=== PATIENT | female | born 1950 ===

== ENCOUNTER 2017-02-16 15:17 | Inpatient (IN) | payer BC, MEDICARE ==
[2017-02-16] MEDS ORDERED: Iohexol 240 (50 ml) PO STA (15:44)
[2017-02-16] MEDS ORDERED: Iohexol 240 (50 ml) ONE (15:58)
--- NOTE | 2017-02-16 16:15 | RAD ---
HISTORY: abd pain, h/o pancreas CA, right chemoport. COMPARISON: None available. TECHNIQUE: Chest, one view. FINDINGS: Right-sided MediPort terminates at the SVC. LUNGS: No focal consolidation. Please note that chest x-ray has limited sensitivity for the detection of pulmonary masses. PLEURA: No significant pleural effusion identified. No definite pneumothorax . CARDIOVASCULAR: Heart size appears within normal limits. Tortuous aorta. OSSEOUS STRUCTURES: Degenerative changes. VISUALIZED UPPER ABDOMEN: Unremarkable. OTHER FINDINGS: None. IMPRESSION: Right-sided MediPort.
[2017-02-16 16:18] LABS: BASO # 0.1 K/uL (0.0-0.2); BASO % 0.7 % (0.0-2.0); EOS # 0.1 K/uL (0.0-0.7); HEMATOCRIT 37.6 % (34.0-47.0); LYMPH # 1.1 K/uL (1.0-4.3); LYMPH % 14.3 % (20.0-40.0); MEAN CELL VOLUME 83.4 fL (81.0-99.0); MEAN CORPUSCULAR HEMOGLOBIN 27.1 pg (27.0-31.0); MEAN CORPUSCULAR HGB CONC 32.5 g/dL (33.0-37.0); MEAN PLATELET VOLUME 7.2 fL (7.2-11.7); MONO # 0.6 K/uL (0.0-0.8); MONO % 8.1 % (0.0-10.0); RED CELL DISTRIBUTION WIDTH 17.2 % (11.5-14.5); WHITE BLOOD COUNT 7.6 K/uL (4.8-10.8)
[2017-02-16 16:27] LABS: INR 1.1
[2017-02-16 16:47] LABS: CHLORIDE 97 mmol/L (98-107)
[2017-02-16 16:48] LABS: SODIUM 131 mmol/L (132-148)
[2017-02-16 16:51] LABS: ALKALINE PHOSPHATASE 108 U/L (38-126); ALT/SGPT 27 U/L (9-52); AST/SGOT 21 U/L (14-36); BILIRUBIN,TOTAL 0.9 mg/dL (0.2-1.3); BLOOD UREA NITROGEN 20 mg/dL (7-17); CARBON DIOXIDE 24 mmol/L (22-30); GFR AFRICAN-AMERICAN > 60; GLUCOSE,RANDOM 166 mg/dL (65-105); TOTAL PROTEIN 6.3 g/dL (6.3-8.3)
[2017-02-16 16:52] LABS: CALCIUM 9.1 mg/dl (8.6-10.4)
[2017-02-16 16:53] LABS: POTASSIUM 4.4 mmol/L (3.6-5.2)
[2017-02-16] MEDS ORDERED: Iohexol 350mg/ml 100 ML ONE (17:23)
[2017-02-16] MEDS ORDERED: Iodixanol 320 MG/ML 100 ML BOTTLE IV ONE (17:34)
[2017-02-16] MEDS ORDERED: Ciprofloxacin 400mg/200ml D5W 400 MG/200 ML BAG IVPB ONE (18:14)
[2017-02-16 18:15] LABS: RBC URINE 1 /hpf (0-3); URINE BILIRUBIN NEGATIVE (NEGATIVE); URINE BLOOD NEGATIVE (NEGATIVE); URINE COLOR Amber (YELLOW); URINE GLUCOSE (UA) NORMAL (Normal); URINE KETONE 1+ mg/dL (NEGATIVE); URINE LEUKOCYTE ESTERASE NEG Leu/uL (Negative); URINE PROTEIN 1+ mg/dL (NEGATIVE); WBC URINE 3 /hpf (0-5)
--- NOTE | 2017-02-16 19:00 | C.PDOC ---
Time Seen by Provider: 02/16/17 15:32 Chief Complaint (Nursing): Abdominal Pain History Per: Patient, Family Onset/Duration Of Symptoms: Days Current Symptoms Are (Timing): Still Present Severity: Moderate Location Of Pain/Discomfort: Epigastric Quality Of Discomfort: "Pain" Associated Symptoms: Nausea, Vomiting, Constipation Exacerbating Factors: Food Alleviating Factors: None Last Bowel Movement: Days Ago (4) Additional History Per: Prior Records Past Medical History Reviewed: Historical Data, Nursing Documentation, Vital Signs Vital Signs: Last Vital Signs Temp 97.6 F 02/16/17 15:24 Pulse 99 H 02/16/17 15:24 Resp 18 02/16/17 15:24 BP 120/83 02/16/17 15:24 Pulse Ox 98 02/16/17 15:24 - Medical History PMH: Malignancy (Pancreatic) Other Surgeries: Chemoport Family History: States: Unknown Family Hx - Social History Hx Alcohol Use: No Hx Substance Use: No Review Of Systems Except As Marked, All Systems Reviewed And Found Negative. Constitutional: Negative for: Fever Cardiovascular: Negative for: Chest Pain Respiratory: Negative for: Shortness of Breath Gastrointestinal: Positive for: Nausea, Vomiting, Abdominal Pain, Constipation. Negative for: Melena, Hematochezia, Hematemesis Genitourinary: Negative for: Dysuria Musculoskeletal: Negative for: Neck Pain Skin: Negative for: Rash Neurological: Negative for: Weakness, Numbness Physical Exam - Physical Exam Appears: Non-toxic, Chronically Ill Skin: Normal Color, Warm, Dry Head: Atraumatic, Normacephalic Eye(s): bilateral: PERRL, EOMI Neck: Normal ROM, Supple Cardiovascular: Rhythm Regular Respiratory: Normal Breath Sounds, No Accessory Muscle Use Gastrointestinal/Abdominal: Tenderness (epigastric), Distention Back: No CVA Tenderness Extremity: Normal ROM Neurological/Psych: Oriented x3, Normal Motor, Normal Sensation ED Course And Treatment - Laboratory Results Result Diagrams: 02/16/17 16:12 02/16/17 16:12 Lab Interpretation: No Acute Changes O2 Sat by Pulse Oximetry: 98 Pulse Ox Interpretation: Normal Disposition - Disposition Disposition Time: 19:00 Condition: GUARDED Forms: [employer] ([place] Citizen) - Clinical Impression Clinical Impression: Abdominal pain, Nausea and vomiting Physician Patient Turnover Patient Signed Over To: Marianna Leslie Handoff Comments: to f/up CT scan of abdomen/pelvis and reassess/dispo pt.
--- NOTE | 2017-02-16 19:23 | CT ---
EXAM: CT Abdomen and Pelvis With Intravenous Contrast EXAM DATE/TIME: Exam ordered 02/16/2017 5:30 PM CLINICAL HISTORY: 66 years old, female; Pain; Abdominal pain; Generalized; Additional info: Abd pain/distention, vomiting, h/o pancreatic ca TECHNIQUE: Axial computed tomography images of the abdomen and pelvis with intravenous contrast. All CT scans at this facility use one or more dose reduction techniques, viz.: automated exposure control; ma/kV adjustment per patient size (including targeted exams where dose is matched to indication; i.e. head); or iterative reconstruction technique. Coronal and sagittal reformatted images were created and reviewed. CONTRAST: 100 mL of omni 350 administered intravenously. COMPARISON: No relevant prior studies available. FINDINGS: Lower thorax: The there is a 4 mm nodule in the right lower lobe (series 5 image 1). A bulla is present in the right middle lobe. There is a calcified granuloma noted in the posterior basal segment of the right lower lobe. A thin pleural based reticular density representing scar is seen in the posterior basal segment of the left lower lobe. A bulla is noted in the left lower lobe measuring less than a centimeter. ABDOMEN: Liver: A 5 mm low density lesion is noted in the lateral segment of the left lobe of the liver with a density measurement of 0 representing a simple cyst. Gallbladder and bile ducts: Unremarkable. No calcified stones. No ductal dilation. Pancreas: Unremarkable. No mass. No ductal dilation. Spleen: There is occlusion of the splenic vein. Adrenals: Unremarkable. No mass. Kidneys and ureters: There is a focal area of cortical thinning noted in the midportion of the right kidney posteriorly. There is mild fullness of the renal collecting systems bilaterally. Stomach and bowel: Unremarkable. No obstruction. No mucosal thickening. Appendix: No findings to suggest acute appendicitis. PELVIS: Bladder: The uterus is not seen as a separate structure. The bladder appears decompressed. Reproductive: See above. ABDOMEN and PELVIS: Intraperitoneal space: There is a large amount of intra-abdominal ascites. There is thickening noted of the peritoneum. No free air. Bones/joints: No acute fracture. No dislocation. Soft tissues: Varices are noted within the gastrohepatic ligament and adjacent to the greater curvature the stomach small varices are suggested in the subcutaneous fat of the intra-abdominal wall on the right below the umbilicus. Vasculature: See above. Lymph nodes: Unremarkable. No enlarged lymph nodes. Other findings: . IMPRESSION: 1. Large amount of intra-abdominal ascites with peritoneal thickening. This could represent peritoneal carcinomatosis. 2. Calcified and noncalcified right-sided pulmonary nodules. An optional follow-up chest CT at 12 months could be performed due to the high risk of malignancy. If unchanged, no further follow-up is necessary. 3. 5 mm cyst in the liver. 4. Splenic vein occlusion with varices noted the surrounding the stomach and in the splenic hilum. 5. Mild fullness of the renal collecting systems bilaterally likely secondary to tense abdominal ascites.
[2017-02-16] MEDS ORDERED: Morphine 4 MG/ML VIAL ONE (19:44)
[2017-02-16] MEDS ORDERED: oxyCODONE 5 mg Immediate Release Tab PO PRN (21:43)
[2017-02-16] MEDS: (Novolin R) Insulin Human Regular 100 units/ml vial SC SCH (22:17)
[2017-02-17 04:29] VITALS: RESP 20
[2017-02-17 07:14] LABS: HEMATOCRIT 35.9 % (34.0-47.0); MEAN CELL VOLUME 83.9 fL (81.0-99.0); MEAN CORPUSCULAR HEMOGLOBIN 26.8 pg (27.0-31.0); MEAN PLATELET VOLUME 7.5 fL (7.2-11.7); RED CELL DISTRIBUTION WIDTH 17.1 % (11.5-14.5); WHITE BLOOD COUNT 7.2 K/uL (4.8-10.8)
[2017-02-17 07:31] LABS: CHLORIDE 98 mmol/L (98-107); INR 1.1
[2017-02-17 07:32] LABS: SODIUM 133 mmol/L (132-148)
[2017-02-17 07:33] LABS: POTASSIUM 4.7 mmol/L (3.6-5.2)
[2017-02-17 07:35] LABS: ALKALINE PHOSPHATASE 107 U/L (38-126); ALT/SGPT 27 U/L (9-52); AST/SGOT 20 U/L (14-36); BILIRUBIN,TOTAL 0.8 mg/dL (0.2-1.3); BLOOD UREA NITROGEN 19 mg/dL (7-17); CARBON DIOXIDE 28 mmol/L (22-30); GFR AFRICAN-AMERICAN > 60; GLUCOSE,RANDOM 135 mg/dL (65-105); TOTAL PROTEIN 5.8 g/dL (6.3-8.3)
[2017-02-17] MEDS: (Novolin R) Insulin Human Regular 100 units/ml vial SC SCH ×4 (08:41→22:09)
[2017-02-17] MEDS ORDERED: Enoxaparin 40 mg Syringe SC SCH (10:00)
--- NOTE | 2017-02-17 11:41 | PCM.SURG1 ---
Surgeon's Initial Post Op Note - Surgeon's Notes Surgeon: Ritesh Meléndez MD Trade Show Specialist: NONE Type of Anesthesia: Local Pre-Operative Diagnosis: Ascites Operative Findings: US showed moderate ascites Post-Operative Diagnosis: Ascites Operation Performed: US guided paracentesis Specimen/Specimens Removed: 3500 cc of yellow fluid Estimated Blood Loss: EBL {In ML}: 0 Blood Products Given: N/A Drains Used: No Drains Post-Op Condition: Fair Date of Surgery/Procedure: 02/17/17 Time of Surgery/Procedure: 11:35
--- NOTE | 2017-02-17 11:47 | US ---
Date of Procedure: 02/17/2017 PROCEDURE: Ultrasound-guided paracentesis, CPT 19503 Medications: 7 cc 1% Lidocaine HISTORY: Ascites, abdominal pain, cirrhosis TECHNIQUE: Following informed consent , the patient was placed supine on the stretcher and the site was marked. A limited abdominal ultrasound was performed that showed a large amount of intra-abdominal fluid. Procedural time out was called and the Pt's abdomen was marked and prepped and draped in the usual sterile fashion. Ultrasound-guided large volume paracentesis performed. A total of 3.5 liters of straw colored fluid was removed without complication.. IMPRESSION: Ultrasound-guided large volume paracentesis.
--- NOTE | 2017-02-17 20:42 | CP.PCM.CON ---
History of Present Illness - History of Present Illness History of Present Illness: 66 year old female with a history of advanced pancreatic cancer diagnosed about 1 year ago, off chemotherapy for about 3 months, admitted with abdominal pain, constipation, and tense abdominal ascites s/p paracentesis. The patient reports she had been receiving chemotherapy in [place]. Her chemotherapy was discontinued about 3 months ago for stated progressive disease. She is currently feeling better post paracentesis. She admits to poor appetite and weightloss. Past medical history: Pancreatic cancer Past surgical history: None Family history: Denies hematologic and oncologic problems Social history: Denies tobacco, alcohol and illicit drug use. Allergies: NKA Review of systems: All remaining review of systems including HEENT, cardiovascular, respiratory, gastrointestinal, genitourinary, musculoskeletal, dermatologic, neurologic, and psychiatric are negative unless mentioned in the HPI. Past Patient History - Past Medical History & Family History Past Medical History?: Yes - Past Social History Smoking Status: Never Smoked - ENDOCRINE/METABOLIC Hx Endocrine Disorders: Yes Hx Diabetes Mellitus Type 2: Yes - HEMATOLOGICAL/ONCOLOGICAL Hx Blood Disorders: Yes Hx Cancer: Yes (PANCREATIC) - MUSCULOSKELETAL/RHEUMATOLOGICAL Hx Falls: Yes - GASTROINTESTINAL Hx Gastrointestinal Disorders: Yes Other/Comment: PANCREATIC CANCER - PSYCHIATRIC Hx Substance Use: No - SURGICAL HISTORY Hx Surgeries: No - ANESTHESIA Hx Anesthesia: No Hx Anesthesia Reactions: No Hx Malignant Hyperthermia: No Meds Allergies/Adverse Reactions: Allergies Allergy/AdvReac Type Severity Reaction Status Date / Time No Known Allergies Allergy Verified 02/16/17 15:27 - Medications Medications: Current Medications Enoxaparin Sodium (Lovenox) 40 mg SC DAILY [facility] Famotidine (Pepcid) 20 mg IVP Q12 [facility] Last Admin: 02/17/17 09:55 Dose: 20 mg Insulin Human Regular (Novolin R) 0 unit SC ACHS [facility] PRN Reason: Protocol Last Admin: 02/17/17 17:09 Dose: 1 unit Morphine Sulfate (Morphine) 4 mg IVP Q4 PRN PRN Reason: Pain Ondansetron HCl (Zofran Inj) 4 mg IVP Q4 PRN PRN Reason: Nausea/Vomiting Last Admin: 02/17/17 18:19 Dose: 4 mg Pneumococcal Polyvalent Vaccine (Pneumovax 23 Vaccine) 0.5 ml IM .ONCE ONE Stop: 02/19/17 10:01 Rosuvastatin Calcium (Crestor) 5 mg PO HS [facility] Last Admin: 02/16/17 22:17 Dose: 5 mg Physical Exam - Head Exam Head Exam: ATRAUMATIC - Eye Exam Eye Exam: Normal appearance - ENT Exam ENT Exam: Mucous Membranes Dry - Respiratory Exam Respiratory Exam: NORMAL BREATHING PATTERN - Cardiovascular Exam Cardiovascular Exam: +S1, +S2 - GI/Abdominal Exam GI & Abdominal Exam: Normal Bowel Sounds - Extremities Exam Extremities exam: Positive for: normal inspection - Neurological Exam Neurological exam: Oriented x3 - Psychiatric Exam Psychiatric exam: Normal Affect, Normal Mood - Skin Skin Exam: Warm Results - Vital Signs Recent Vital Signs: Last Vital Signs Temp 98.2 F 02/17/17 15:00 Pulse 97 H 02/17/17 15:00 Resp 20 02/17/17 15:00 BP 105/67 02/17/17 15:00 Pulse Ox 97 02/17/17 15:00 - Labs Result Diagrams: 02/17/17 07:08 02/17/17 07:08 Labs: Laboratory Results - last 24 hr 02/16/17 02/17/17 02/17/17 22:17 07:04 07:08 WBC 7.2 RBC 4.28 Hgb 11.5 Hct 35.9 MCV 83.9 MCH 26.8 L MCHC 32.0 L RDW 17.1 H Plt Count 242 MPV 7.5 PT INR APTT Sodium Potassium Chloride Carbon Dioxide Anion Gap BUN Creatinine Est GFR ( Amer) Est GFR (Non-Af Amer) POC Glucose (mg/dL) 150 H 154 H Random Glucose Calcium Total Bilirubin AST ALT Alkaline Phosphatase Total Protein Albumin Globulin Albumin/Globulin Ratio 02/17/17 02/17/17 02/17/17 07:08 07:08 16:14 WBC RBC Hgb Hct MCV MCH MCHC RDW Plt Count MPV PT 11.9 INR 1.1 APTT 31 Sodium 133 Potassium 4.7 Chloride 98 Carbon Dioxide 28 Anion Gap 12 BUN 19 H Creatinine 0.9 Est GFR ( Amer) > 60 Est GFR (Non-Af Amer) > 60 POC Glucose (mg/dL) 162 H Random Glucose 135 H Calcium 9.0 Total Bilirubin 0.8 AST 20 ALT 27 Alkaline Phosphatase 107 Total Protein 5.8 L Albumin 2.9 L Globulin 2.9 Albumin/Globulin Ratio 1.0 Assessment & Plan (1) Pancreatic cancer Assessment and Plan: evidence of peritoneal carcinomatosis by CT s/p paracentesis; f/u cytology no pancreatic mass noted by CT palliative care evaluation outpatient f/u with primary oncologist Thank you for this interesting consult. Status: Acute
--- NOTE | 2017-02-18 07:55 | HP ---
CHIEF COMPLAINT: Abdominal pain, nausea and vomiting. HISTORY OF PRESENT ILLNESS: This is an elderly female who was recently diagnosed in [facility] with a pancreatic cancer a year ago and last chemo was 3 months ago. The patient is not on chemotherapy as she was told by her heme-onc in [facility] that her cancer is too advanced and the patient came because of abdominal pain, nausea, vomiting, generalized weakness, tiredness, anorexia, malaise and fatigue; along with that she had some abdominal distension. The patient is weak and tired. She feels shaky. She denies any cough or sore throat. There is no chest pain. She denies any palpitation. There is no history of trauma, fall or loss of consciousness. The patient denies any seizure-like activity. She denies any tingling, numbness or paresthesia. The patient denies any rectal bleed. The patient denies any sneezing, itchy eyes or itchy nose. She denies any polyuria, polydipsia or polyphagia. ALLERGIES: UNKNOWN. CURRENT MEDICATIONS: At home, she is taking Zocor, Percocet, Zofran, omeprazole, lisinopril and metformin. SOCIAL HISTORY: Nonsmoker, non-drug user. PHYSICAL EXAMINATION GENERAL: An elderly female in [id number] distress. VITAL SIGNS: Blood pressure 130/83, pulse 80, respiratory rate 20 and temperature 98.1. SKIN: Dry, senile turgor. No bruises. No purpura. No petechiae. No ecchymosis. HEENT: Atraumatic and normocephalic. Negative pallor. Negative jaundice. Extraocular movements are intact. NECK: Supple. Flat neck veins. No JVD. CHEST WALL: Bilateral symmetrical expansion. LUNGS: Bilaterally clear. No rales. No rhonchi. CARDIOVASCULAR: S1 and S2 regular. No heave. No thrill. ABDOMEN: Soft. There is diffuse tenderness, the patient thus had paracentesis. RECTAL: No masses. No bleeding. EXTREMITIES: No clubbing, cyanosis or edema. CENTRAL NERVOUS SYSTEM: Awake, alert and oriented x3. Cranial nerves II through XII are normal. Power 5/5 x4. ASSESSMENT: 1. Advanced metastatic pancreatic cancer. 2. Dehydration. 3. Ascites, malignant, we will discuss. PLAN: Admit and paracentesis. Pain medications. Monitor the patient. Supportive care. Heme-onc eval. Andriy Jones MD
[2017-02-18] MEDS: (Novolin R) Insulin Human Regular 100 units/ml vial SC SCH ×3 (08:27→17:45)
[2017-02-18] MEDS: Morphine 4 MG/ML VIAL IVP PRN ×2 (08:35→17:12)
[2017-02-18] MEDS ORDERED: Pneumococcal 23-Valent Vaccine IM ONE (15:30)
[2017-02-18 16:02] VITALS: PULSE 84; TEMP 98.1; O2SAT 98
[2017-02-18 17:05] VITALS: BP 113/72
--- NOTE | 2017-02-18 17:48 | PN ---
DATE: LOCATION: Room 356, bed B. SUBJECTIVE: This 66 years old female who was seen for GI consultation as recorded by the admitting MD on 02/17/2017, reexamined again today. Last ultrasound-guided abdominal paracentesis by Dr. Ritesh Meléndez yesterday. Patient still has intermittent periods of complaint of abdominal pain, but less abdominal distention. The entire chart is reviewed including but not limited to most recent labs and radiologic results, current and the previous medication list, current and previous medical events and today's blood glucose level 176; however, yesterday lab result showed normal CBC, but elevated BUN. Dilantin was low. Albumin 2.9. Low total protein 5.8. Initial CAT scan of the abdomen and pelvis were reviewed and discussed with admitting medical team. Patient seen also by Dr. Ozzy Quigley. Due to the patient's known history of advanced pancreatic cancer diagnosed about one year ago, had been off chemotherapy for about 3 months. Patient still has some constipation, but less abdominal distention. PHYSICAL EXAMINATION GENERAL: A 66-year-old female. Appear to be awake, alert. VITAL SIGNS: Afebrile with pulse of 82, respiratory rate 20-22, blood pressure 104/60. HEENT: Show pale, dry oral mucous membrane. Nonicteric sclerae. LUNGS: Few scattered crepitations, decreased air entry at bases. HEART: Positive S1 and S2. ABDOMEN: Soft. Bowel sounds are hypoactive. No mass or organomegaly. No rebound tenderness or guarding. Ascites is still there with less abdominal girth distention. EXTREMITIES: Lower extremity with mild edematous changes. No clubbing or cyanosis. NEUROLOGIC: No reported new neurological deficits, sensory or motor. IMPRESSION: 1. Advanced pancreatic cancer with possible metastasis to the lung. 2. Status post chemotherapy. 3. Re-exacerbation of peptic ulcer disease. 4. Malignant ascites secondary to peritoneal involvement with pancreatic cells most likely. PLAN: 1. I agree with your plan. 2. More abdominal paracentesis guided by ultrasound. 3. Patient has no evidence of obstructive jaundice and her pancreatic cancer diagnosis was well made before. At this point, no need for aggressive GI workup and peripheral hyperalimentation will be provided due to the patient's poor oral intake once discussed the case at length with the admitting medical team. Emerita Freeman MD [facility] # [id number]
--- NOTE | 2017-02-18 18:30 | CP.PCM.PN ---
Subjective - Date & Time of Evaluation Date of Evaluation: 02/18/17 Time of Evaluation: 11:00 - Subjective Subjective: awake, alert, no abdominal pain, no distress. Objective - Vital Signs/Intake and Output Vital Signs (last 24 hours): Temp Pulse Resp BP Pulse Ox 98.1 F 84 20 113/72 98 02/18/17 16:00 02/18/17 16:00 02/18/17 16:00 02/18/17 16:49 02/18/17 16:00 Intake and Output: 02/18/17 02/18/17 06:59 18:59 Intake Total 700 Balance 700 - Medications Medications: Current Medications Enoxaparin Sodium (Lovenox) 40 mg SC DAILY [facility] Famotidine (Pepcid) 20 mg IVP Q12 [facility] Last Admin: 02/18/17 10:46 Dose: Not Given Insulin Human Regular (Novolin R) 0 unit SC ACHS [facility] PRN Reason: Protocol Last Admin: 02/18/17 17:45 Dose: Not Given Morphine Sulfate (Morphine) 4 mg IVP Q4 PRN PRN Reason: Pain Last Admin: 02/18/17 17:12 Dose: 4 mg Ondansetron HCl (Zofran Inj) 4 mg IVP Q4 PRN PRN Reason: Nausea/Vomiting Last Admin: 02/18/17 08:33 Dose: 4 mg Rosuvastatin Calcium (Crestor) 5 mg PO HS [facility] Last Admin: 02/17/17 22:12 Dose: 5 mg - Labs Labs: 02/17/17 07:08 02/17/17 07:08 PT 11.9 SECONDS (9.7-12.2) 02/17/17 07:08 INR 1.1 02/17/17 07:08 APTT 31 SECONDS (21-34) 02/17/17 07:08 Assessment and Plan - Assessment and Plan (Free Text) Assessment: 66 year old female diagnosed with pancreatic cancer, seen and examined. Had paracentesis done yesterday, drained 3.5 liter fluid. Denies abdominal pain or distress today. Alert and orientedx3, ambulating well. D/W DR Jones, plan to discharge home today. Advised to follow in 1 week with PMD.
--- NOTE | 2017-02-19 21:21 | CON ---
DATE: 02/17/2017 LOCATION: 356, bed B. HISTORY OF PRESENT ILLNESS: I was called for GI consultation by the admitting MD. The patient was seen and fully examined on since 02/17/2017, as requested by the admitting medical staff. The entire chart was reviewed including, but not limited to the most recent lab done and radiologic results, current and previous medication list, current and previous medical events, allergies to medication list, as well as all the available current and previous medical record. This is a 66-year-old female with unknown history of pancreatic CA, who was admitted to the hospital through the emergency room with main complaint of severe abdominal pain, increased abdominal girth, recurrent episode of nausea and vomiting. The patient also complained of generalized weakness and malaise with more reported active bleeding. The entire chart is reviewed including, but not limited to the most recent lab and radiologic results. Current and the previous medication list, current and previous medical events. At the time of the admission, the patient's CBC was reported to be within normal limit including platelet count are normal, but low sodium of 131 with increased BUN to 20, but normal creatine. The latest blood glucose level reported to be 154 with low albumin 2.9. Total protein of 5.6. Abdominal and pelvic CAT scan at the time of admission was performed, reports and films are seen, and did show large amount of ascites with peritoneal thickening, which could represent peritoneal carcinomatosis with small liver cyst and possible splenic vein occlusion with varices. Initial chest x-ray at that time of the admission was unremarkable basically. PAST MEDICAL HISTORY: Including . 1. Pancreatic CA. 2. Status post chemotherapy. 3. Peptic ulcer disease. FAMILY HISTORY: Unknown. SOCIAL HISTORY: No known history of cigarette smoking or alcohol intake recently. CURRENT MEDICATIONS: Medication list was reviewed. ALLERGIES TO MEDICATION: NONE. PHYSICAL EXAMINATION GENERAL: A 66 years old female complaining of abdominal pain appeared to be awake, alert, and oriented. VITAL SIGNS: Afebrile with pulse of 92, respiratory rate 20 to 22, blood pressure of 120/68. HEENT: Shows mildly pale, dry oral mucous membrane. Nonicteric sclerae. HEART: Positive S1 and S2 with increased rate. LUNGS: Few scattered crepitations, with decreased air entry at bases. ABDOMEN: Large, abdominal ascites with increased abdominal girth and mild generalized tenderness. No mass or organomegaly. No rebound, tenderness or guarding. LYMPH NODES: There is no lymphadenitis or lymphadenopathy. RECTAL: The patient refused. EXTREMITIES: Mild lower extremity edematous changes. No clubbing or cyanosis. NEUROLOGIC: No reported new neurological deficits, sensory or motor. Peripheral pulses are positive bilaterally and present. IMPRESSION: 1. Advanced pancreatic carcinoma with possible metastatic lesion to the lung as well as the peritoneal cavity. 2. Status post chemotherapy. 3. Re-exacerbation peptic ulcer disease with recurrent nausea and vomiting. 4. Malignant ascites most likely secondary to above and also due to peritoneal involvement, most likely. 5. Abnormal CAT scan of the abdomen and pelvis with small hepatic cyst as well as splenic vein thrombosis with varices. SUGGESTIONS: 1. Agree with your plan. 2. Aldactone p.o. 3. Lasix IV. 4. Proton pump inhibitors. 5. Reglan IV. 6. Proton pump inhibitors IV. 7. The patient will need CAT scan guided or ultrasound-guided abdominal paracentesis as a palliative treatment. 8. No need for aggressive GI workup due to the advanced pancreatic CA and Oncology/Hematology consultation to follow. Thank you for allowing me to participate in your patient's case management. Emerita Freeman MD
--- NOTE | 2017-02-19 22:37 | CP.PCM.DIS ---
Provider - Provider Date of Admission: 02/16/17 19:43 Attending physician: Andriy Jones MD Diagnosis - Discharge Diagnosis (1) Dehydration Status: Acute Priority: High (2) Pancreatic cancer Status: Acute Priority: High Hospital Course - Lab Results Lab Results: Most Recent Lab Values WBC 7.2 K/uL (4.8-10.8) 02/17/17 07:08 RBC 4.28 Mil/uL (3.80-5.20) 02/17/17 07:08 Hgb 11.5 g/dL (11.0-16.0) 02/17/17 07:08 Hct 35.9 % (34.0-47.0) 02/17/17 07:08 MCV 83.9 fL (81.0-99.0) 02/17/17 07:08 MCH 26.8 pg (27.0-31.0) L 02/17/17 07:08 MCHC 32.0 g/dL (33.0-37.0) L 02/17/17 07:08 RDW 17.1 % (11.5-14.5) H 02/17/17 07:08 Plt Count 242 K/uL (130-400) 02/17/17 07:08 MPV 7.5 fL (7.2-11.7) 02/17/17 07:08 Neut % (Auto) 75.9 % (50.0-75.0) H 02/16/17 16:12 Lymph % (Auto) 14.3 % (20.0-40.0) L 02/16/17 16:12 [place] % (Auto) 8.1 % (0.0-10.0) 02/16/17 16:12 Eos % (Auto) 1.0 % (0.0-4.0) 02/16/17 16:12 Baso % (Auto) 0.7 % (0.0-2.0) 02/16/17 16:12 Neut # 5.8 K/uL (1.8-7.0) 02/16/17 16:12 Lymph # 1.1 K/uL (1.0-4.3) 02/16/17 16:12 [place] # 0.6 K/uL (0.0-0.8) 02/16/17 16:12 Eos # 0.1 K/uL (0.0-0.7) 02/16/17 16:12 Baso # 0.1 K/uL (0.0-0.2) 02/16/17 16:12 PT 11.9 SECONDS (9.7-12.2) 02/17/17 07:08 INR 1.1 02/17/17 07:08 APTT 31 SECONDS (21-34) 02/17/17 07:08 Sodium 133 mmol/L (132-148) 02/17/17 07:08 Potassium 4.7 mmol/L (3.6-5.2) 02/17/17 07:08 Chloride 98 mmol/L (98-107) 02/17/17 07:08 Carbon Dioxide 28 mmol/L (22-30) 02/17/17 07:08 Anion Gap 12 (10-20) 02/17/17 07:08 BUN 19 mg/dL (7-17) H 02/17/17 07:08 Creatinine 0.9 MG/DL (0.7-1.2) 02/17/17 07:08 Est GFR ( Amer) > 60 02/17/17 07:08 Est GFR (Non-Af Amer) > 60 02/17/17 07:08 POC Glucose (mg/dL) 128 mg/dL (65-110) H 02/18/17 16:31 Random Glucose 135 mg/dL (65-105) H 02/17/17 07:08 Calcium 9.0 mg/dl (8.6-10.4) 02/17/17 07:08 Total Bilirubin 0.8 mg/dL (0.2-1.3) 02/17/17 07:08 AST 20 U/L (14-36) 02/17/17 07:08 ALT 27 U/L (9-52) 02/17/17 07:08 Alkaline Phosphatase 107 U/L (38-126) 02/17/17 07:08 Total Protein 5.8 g/dL (6.3-8.3) L 02/17/17 07:08 Albumin 2.9 g/dL (3.5-5.0) L 02/17/17 07:08 Globulin 2.9 gm/dL (2.2-3.9) 02/17/17 07:08 Albumin/Globulin Ratio 1.0 (1.0-2.1) 02/17/17 07:08 Lipase 11 U/L (23-300) L 02/16/17 16:12 Urine Color Marie (YELLOW) 02/16/17 18:01 Urine Clarity Hazy (Clear) 02/16/17 18:01 Urine pH 5.0 (5.0-8.0) 02/16/17 18:01 Ur Specific [place] 1.025 (1.003-1.030) 02/16/17 18:01 Urine Protein 1+ mg/dL (NEGATIVE) H 02/16/17 18:01 Urine Glucose (UA) Normal mg/dL (Normal) 02/16/17 18:01 Urine Ketones 1+ mg/dL (NEGATIVE) H 02/16/17 18:01 Urine Blood Negative (NEGATIVE) 02/16/17 18:01 Urine Nitrate Negative (NEGATIVE) 02/16/17 18:01 Urine Bilirubin Negative (NEGATIVE) 02/16/17 18:01 Urine Urobilinogen 2.0 mg/dL (0.2-1.0) H 02/16/17 18:01 Ur Leukocyte Esterase Neg Ava/uL (Negative) 02/16/17 18:01 Urine WBC (Auto) 3 /hpf (0-5) 02/16/17 18:01 Urine RBC (Auto) 1 /hpf (0-3) 02/16/17 18:01 Ur Squamous Epith Cells 3 /hpf (0-5) 02/16/17 18:01 - Hospital Course Hospital Course: 66 Y/O ADMITTED WITH PAIN IN ABDOMEN, AND NAUSEA AND SHE HAD ASCTIES WEAKNESS, NO FEVER, NO CHEST PAIN Discharge Exam - Head Exam Head Exam: ATRAUMATIC, NORMAL INSPECTION, NORMOCEPHALIC - Eye Exam Eye Exam: EOMI, Normal appearance, PERRL Pupil Exam: NORMAL ACCOMODATION - ENT Exam ENT Exam: Mucous Membranes Moist, Normal Exam, Normal Oropharynx, TM's Normal Bilaterally - Neck Exam Neck exam: Normal Inspection - Respiratory Exam Respiratory Exam: NORMAL BREATHING PATTERN - Cardiovascular Exam Cardiovascular Exam: REGULAR RHYTHM, +S1, +S2 - GI/Abdominal Exam GI & Abdominal Exam: Normal Bowel Sounds, Unremarkable - Rectal Exam Rectal Exam: NORMAL INSPECTION - Neurological Exam Neurological exam: Abnormal Gait, Alert, CN II-XII Intact, Oriented x3, Reflexes Normal - Psychiatric Exam Psychiatric exam: Normal Mood - Skin Skin Exam: Intact Discharge Plan - Follow Up Plan Condition: GUARDED Disposition: HOME/ ROUTINE Instructions: Pancreatic Cancer (DC), Acute Abdominal Pain (DC), Abdominal Paracentesis (DC), Ascites (DC) Referrals: Ozzy Quigley MD [Staff Provider] - Andriy Jones MD [Staff Provider] -
== END 2017-02-18 18:59 | disposition home or self-care (01) | DRG 375 ==
LOC: C.ER 15:17 → C.9E 19:43 → C.3T 02-17 00:09
PROVIDERS: ADMIT Internal Medicine; ATTEND Internal Medicine
PROC: 0W9G3ZZ Drainage of Peritoneal Cavity, Percutaneous Approach (ICD-10-PCS; principal; 2017-02-16)
DX: C78.6 Secondary malignant neoplasm of retroperitoneum and peritoneum (principal); R18.0 Malignant ascites; C25.9 Malignant neoplasm of pancreas, unspecified; K74.60 Unspecified cirrhosis of liver; K27.9 Peptic ulcer, site unspecified, unspecified as acute or chronic, without hemorrhage or perforation; E11.9 Type 2 diabetes mellitus without complications; E86.0 Dehydration; K59.00 Constipation, unspecified; Z92.21 Personal history of antineoplastic chemotherapy

== ENCOUNTER 2017-02-24 10:15 | Inpatient (IN) | payer BC, MEDICARE ==
[2017-02-24] MEDS ORDERED: Sodium Chloride 0.9% 500 ML IV ONE ×2 (11:17→11:24)
[2017-02-24] MEDS ORDERED: Morphine 4 MG/ML VIAL ONE (11:23)
[2017-02-24 11:40] LABS: BASO % 0.4 % (0.0-2.0); EOS # 0.1 K/uL (0.0-0.7); EOS % 0.7 % (0.0-4.0); HEMATOCRIT 37.4 % (34.0-47.0); LYMPH # 0.8 K/uL (1.0-4.3); LYMPH % 8.1 % (20.0-40.0); MEAN CELL VOLUME 83.6 fL (81.0-99.0); MEAN CORPUSCULAR HEMOGLOBIN 27.1 pg (27.0-31.0); MEAN CORPUSCULAR HGB CONC 32.5 g/dL (33.0-37.0); MEAN PLATELET VOLUME 8.2 fL (7.2-11.7); MONO # 0.5 K/uL (0.0-0.8); MONO % 5.3 % (0.0-10.0); NRBC % 0.1 % (0.0-2.0); PLATELET COUNT 262 K/uL (130-400); RED CELL DISTRIBUTION WIDTH 17.3 % (11.5-14.5); WHITE BLOOD COUNT 9.8 K/uL (4.8-10.8)
[2017-02-24 11:52] LABS: CHLORIDE 92 mmol/L (98-107); POTASSIUM 4.6 mmol/L (3.6-5.2); SODIUM 127 mmol/L (132-148)
[2017-02-24 11:54] LABS: BILIRUBIN,TOTAL 0.9 mg/dL (0.2-1.3); CARBON DIOXIDE 22 mmol/L (22-30); GFR AFRICAN-AMERICAN > 60
[2017-02-24 11:55] LABS: ALKALINE PHOSPHATASE 106 U/L (38-126); ALT/SGPT 27 U/L (9-52); AST/SGOT 20 U/L (14-36); BLOOD UREA NITROGEN 29 mg/dL (7-17); CALCIUM 8.9 mg/dl (8.6-10.4); GLUCOSE,RANDOM 173 mg/dL (65-105); TOTAL PROTEIN 6.2 g/dL (6.3-8.3)
--- NOTE | 2017-02-24 11:57 | RAD ---
PROCEDURE: CHEST RADIOGRAPH, 1 VIEW HISTORY: SOB COMPARISON: Kathleen in made with chest radiograph 09/16/2016 FINDINGS: Re- demonstrated is in situ right-sided MediPort with tip in the SVC. LUNGS: No acute infiltrates. PLEURA: No pneumothorax or pleural fluid seen. CARDIOVASCULAR: Normal. OSSEOUS STRUCTURES: No significant abnormalities. VISUALIZED UPPER ABDOMEN: Normal. OTHER FINDINGS: None. IMPRESSION: No acute infiltrates.
--- NOTE | 2017-02-24 12:06 | C.PDOC ---
History Of Present Illness 66 y/o female who presents to the ED complaining of abdominal pain and distension, worsening over the past week. PMHx includes pancreatic cancer with ascites. She is s/p paracentesis last Friday. She states she is having worsening shortness of breath, ongoing since Friday. Patient denies fever, cough, chest pain, diarrhea. (+) mild nausea and vomiting. Time Seen by Provider: 02/24/17 10:36 Chief Complaint (Nursing): Abdominal Pain History Per: Patient History/Exam Limitations: no limitations Onset/Duration Of Symptoms: Days (x 1 week) Current Symptoms Are (Timing): Still Present Severity: Moderate Past Medical History Reviewed: Historical Data, Nursing Documentation, Vital Signs Vital Signs: Last Vital Signs Temp 97.9 F 02/28/17 08:38 Pulse 87 02/28/17 08:38 Resp 20 02/28/17 08:38 BP 108/73 02/28/17 08:38 Pulse Ox 99 02/28/17 08:38 - Medical History PMH: Arthritis (BACK), Malignancy (Pancreatic) Other PMH: Ascites - ComHear Procedures DRAINAGE OF PERITONEAL CAVITY, PERCUTANEOUS APPROACH (02/16/17) Family History: States: No Known Family Hx - Social History Hx Alcohol Use: No Hx Substance Use: No - Immunization History Hx Tetanus Toxoid Vaccination: No Hx Influenza Vaccination: No Hx Pneumococcal Vaccination: Yes Review Of Systems Except As Marked, All Systems Reviewed And Found Negative. Constitutional: Negative for: Fever Cardiovascular: Negative for: Chest Pain, Palpitations Respiratory: Positive for: Shortness of Breath. Negative for: Cough Gastrointestinal: Positive for: Nausea, Vomiting, Abdominal Pain (and distension ). Negative for: Diarrhea Genitourinary: Negative for: Dysuria Physical Exam - Physical Exam Appears: Non-toxic, Chronically Ill (cachetic), Other (Mild pain) Skin: Normal Color, Warm, Dry, No Rash Eye(s): bilateral: Normal Inspection Oral Mucosa: Moist Neck: Normal Chest: Symmetrical Cardiovascular: Rhythm Regular Respiratory: Normal Breath Sounds, No Rales, No Rhonchi, No Wheezing Gastrointestinal/Abdominal: Bowel Sounds, Soft, Tenderness (diffusely tender to palpation), Distention, No Guarding, No Rebound, Ascites Back: Normal Inspection Extremity: Normal ROM, No Pedal Edema, No Calf Tenderness, No Deformity Pulses: Left Dorsalis Pedis: Normal, Right Dorsalis Pedis: Normal Neurological/Psych: Oriented x3 Gait: Steady ED Course And Treatment - Laboratory Results Result Diagrams: 02/28/17 07:55 02/27/17 07:00 O2 Sat by Pulse Oximetry: 96 (RA) Pulse Ox Interpretation: Normal - Radiology CXR: Read By Radiologist (at 11:56) CXR Interpretation: Yes: No Acute Disease Progress Note: 11:05. Initial Plan: Blood work, CXR, EKG ordered and reviewed. Patient given IV morphine, IV zofran and small IV NS bolus. IR consult entered - Dr. Ritesh Meléndez for paracentesis. Patient will be admitted. - Physician Consult Information Physician Contacted: Andriy Jones Outcome Of Conversation: Discussed patient with Dr. Jones (admitted patient peviously), he agrees with admission to his service for abdominal pain, ascites , pancreatic cancer. IR consulted for paracentesis. Disposition - Disposition Disposition: HOSPITALIZED Disposition Time: 12:05 Condition: STABLE - Clinical Impression Clinical Impression: Pancreatic cancer, Ascites - Scribe Statement The provider has reviewed the documentation as recorded by the Scribalbina Avila All medical record entries made by the Scribe were at my direction and personally dictated by me. I have reviewed the chart and agree that the record accurately reflects my personal performance of the history, physical exam, medical decision making, and the department course for this patient. I have also personally directed, reviewed, and agree with the discharge instructions and disposition. Decision To Admit - Pt Status Changed To: Hospital Disposition Of: Inpatient - Admit Certification Admit to Inpatient:: After my assessment, the patient will require hospitalization for at least two midnights. This is because of the severity of symptoms shown, intensity of services needed, and/or the medical risk in this patient being treated as an outpatient. - InPatient: Physician Admission Certification:: see notes - . Bed Request Type: Regular Admitting Physician: Andriy Jones Patient Diagnosis: Nausea, Vomiting, Ascites, Pancreatic cancer
[2017-02-24 12:14] LABS: ALB/GLOB RATIO 1.1 (1.0-2.1)
[2017-02-24 12:38] LABS: TOTAL CELLS COUNTED 100
[2017-02-24 12:39] LABS: NEUTROPHIL 87 % (50-75)
[2017-02-24] MEDS ORDERED: oxyCODONE 5 mg Immediate Release Tab PO PRN (12:53)
[2017-02-24] MEDS: Pantoprazole 20 mg EC Tab PO SCH (14:10)
[2017-02-24] MEDS: (Novolin R) Insulin Human Regular 100 units/ml vial SC SCH ×2 (16:48→21:31)
--- NOTE | 2017-02-24 21:46 | CP.PCM.CON ---
History of Present Illness - History of Present Illness History of Present Illness: 66 year old female with a history of stage IV pancreatic cancer diagnosed about 1 year ago, off chemotherapy for about 3 months, admitted with abdominal pain, constipation, and tense abdominal ascites. She was recently discharged for similar complaints and required paracentesis. She notes the fluid rapidly accumulated since leaving. The patient reports she had been receiving chemotherapy in [place]. Her chemotherapy was discontinued about 3 months ago for stated progressive disease. She admits to poor appetite and weightloss. Past medical history: Pancreatic cancer Past surgical history: None Family history: Denies hematologic and oncologic problems Social history: Denies tobacco, alcohol and illicit drug use. Allergies: NKA Review of systems: All remaining review of systems including HEENT, cardiovascular, respiratory, gastrointestinal, genitourinary, musculoskeletal, dermatologic, neurologic, and psychiatric are negative unless mentioned in the HPI. Past Patient History - Past Medical History & Family History Past Medical History?: Yes - Past Social History Smoking Status: Never Smoked - ENDOCRINE/METABOLIC Hx Diabetes Mellitus Type 2: Yes - HEMATOLOGICAL/ONCOLOGICAL Hx Blood Disorders: Yes Hx Cancer: Yes (PANCREATIC) - MUSCULOSKELETAL/RHEUMATOLOGICAL Hx Arthritis: Yes (BACK) Hx Falls: No - GASTROINTESTINAL Hx Gastrointestinal Disorders: Yes Other/Comment: PANCREATIC CANCER - PSYCHIATRIC Hx Substance Use: No - SURGICAL HISTORY Hx Surgeries: No - ANESTHESIA Hx Anesthesia: Yes Hx Anesthesia Reactions: No Hx Malignant Hyperthermia: No Has any member of the family had a problem w/ anesthesia?: No Meds Allergies/Adverse Reactions: Allergies Allergy/AdvReac Type Severity Reaction Status Date / Time No Known Allergies Allergy Verified 02/24/17 10:32 - Medications Medications: Current Medications Enoxaparin Sodium (Lovenox) 40 mg SC DAILY [facility] Insulin Human Regular (Novolin R) 0 unit SC ACHS [facility] PRN Reason: Protocol Last Admin: 02/24/17 21:31 Dose: Not Given Lisinopril (Zestril) 10 mg PO DAILY [facility] Morphine Sulfate (Morphine) 2 mg IVP Q4 PRN PRN Reason: Pain, moderate (4-7) Last Admin: 02/24/17 18:02 Dose: 2 mg Ondansetron HCl (Zofran Inj) 4 mg IVP Q6 PRN PRN Reason: Nausea/Vomiting Pantoprazole Sodium (Protonix Ec Tab) 20 mg PO DAILY [facility] Last Admin: 02/24/17 14:10 Dose: 20 mg Physical Exam - Head Exam Head Exam: ATRAUMATIC - Eye Exam Eye Exam: Normal appearance - ENT Exam ENT Exam: Mucous Membranes Dry - Respiratory Exam Respiratory Exam: NORMAL BREATHING PATTERN - Cardiovascular Exam Cardiovascular Exam: +S1, +S2 - GI/Abdominal Exam GI & Abdominal Exam: Normal Bowel Sounds - Extremities Exam Extremities exam: Positive for: pedal edema - Neurological Exam Neurological exam: Oriented x3 - Psychiatric Exam Psychiatric exam: Normal Affect, Normal Mood - Skin Skin Exam: Warm Results - Vital Signs Recent Vital Signs: Last Vital Signs Temp 97.5 F L 02/24/17 15:01 Pulse 110 H 02/24/17 15:01 Resp 20 02/24/17 15:01 BP 114/76 02/24/17 15:01 Pulse Ox 98 02/24/17 15:01 - Labs Result Diagrams: 02/24/17 11:37 02/24/17 11:37 Labs: Laboratory Results - last 24 hr 02/24/17 02/24/17 16:30 20:52 POC Glucose (mg/dL) 130 H 187 H Assessment & Plan (1) Pancreatic cancer Assessment and Plan: stage IV may have 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 Status: Acute Priority: High
[2017-02-25] MEDS: (Novolin R) Insulin Human Regular 100 units/ml vial SC SCH ×4 (07:38→21:43)
[2017-02-25] MEDS: Enoxaparin 40 mg Syringe SC SCH (09:18)
[2017-02-25] MEDS: Pantoprazole 20 mg EC Tab PO SCH (09:18)
--- NOTE | 2017-02-25 10:56 | HP ---
CHIEF COMPLAINT: Abdominal pain worsening, general one week. HISTORY OF PRESENT ILLNESS: This is an elderly 66 years old female with diagnosis of pancreatic cancer and she is off chemotherapy because of terminal nature of her disease. She had a paracentesis done on last Friday and she was discharge home and she felt comfortable till today, she came back to emergency room because of abdominal pain, distention, worsening after she got discharge, her abdomen tense distended severe pain. She has dyspnea on exertion. She denies any polyuria, polydipsia or polyphagia. She denies any hematuria or pyuria. She denies any history of sneezing, itchy eyes or itchy nose. There is no history of trauma, fall or loss of consciousness. There is no history of seizure-like activity. She denies any tingling, numbness or paresthesia. She denied any history of bleeding per rectum. She denied any history of hematuria. PAST MEDICAL HISTORY: Pancreatic cancer. SOCIAL HISTORY: Nonsmoker, non ETOH user. FAMILY HISTORY: Negative for pancreatic cancer. PHYSICAL EXAMINATION: GENERAL: An elderly female in distress with pain. VITAL SIGNS: Blood pressure 103/71, pulse 100, respiratory rate 18 and temperature 98.9. SKIN: Warm and senile turgor. No bruising. No purpura. HEENT: Atraumatic and normocephalic. Negative pallor. Negative jaundice. Extraocular movements are intact. NECK: Supple. No JVD. No lymph node. No thyromegaly. No carotid bruit. CHEST WALL: Bilateral symmetrical expansion. LUNGS: Bilaterally clear. No rales. No rhonchi. CARDIOVASCULAR: S1 and S2 regular. No heave. No thrill. ABDOMEN: Bowel sounds are positive. Abdomen is tense distended and tender. RECTAL: No masses. No bleeding. EXTREMITIES: No clubbing, cyanosis or edema.. CENTRAL NERVOUS SYSTEM: Awake, alert and oriented x3. ASSESSMENT: 1. Malignant ascites associated with distention, pain and shortness of breath. 2. Pancreatic cancer. PLAN: Admit detailed ordered written. Andriy Jones MD
--- NOTE | 2017-02-25 11:15 | PCM.SURG1 ---
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 Specimen/Specimens Removed: 3.5 liters of slight serosanguinous fluid Estimated Blood Loss: EBL {In ML}: 0 Blood Products Given: N/A Drains Used: No Drains Post-Op Condition: Fair Date of Surgery/Procedure: 02/25/17 Time of Surgery/Procedure: 11:00
--- NOTE | 2017-02-25 11:43 | CP.PCM.CON ---
History of Present Illness - History of Present Illness History of Present Illness: Palliative consult Requested by : Alan Jones MD Reason: end of life care discussion Patient is a 66 yo female admitted from home with complains of nausea, vomiting , abdominal pain and shortness of breath for the last week. Patient has had those symptoms for long time now due to pancreas CA, but over the last week symptoms worsened. patient receivd last Chemo Tx and was advised by Doctor Dann to cease it, as cancer become resistant to the Chemo Tx. Patient received last paracentesis last Friday and the new one was planned for today. PMH: pancreas CA with last Chemo received this week, multiple paracentesis, constipation Soc. Hx: , lives at home with her family Fam. Hx: denies cancer in family Review of Systems - Constitutional Constitutional: Fatigue, Weight Loss, Weakness - EENT Eyes: absent: As Per HPI, Blind Spots, Blurred Vision, Change in Vision, Decreased Night Vision, Diplopia, Discharge, Dry Eye, Exophthalmos, Floaters, Irritation, Itchy Eyes, Loss of Peripheral Vision, Pain, Photophobia, Requires Corrective Lenses, Sees Flashes, Spots in Vision, Tunnel Vision, Other Visual Disturbances, Loss of Vision, Other Ears: absent: As Per HPI, Decreased Hearing, Ear Discharge, Ear Pain, Tinnitus, Abnormal Hearing, Disequilibrium, Dizziness, Other Nose/Mouth/Throat: absent: As Per HPI, Epistaxis, Nasal Congestion, Nasal Discharge, Nasal Obstruction, Nasal Trauma, Nose Pain, Post Nasal Drip, Sinus Pain, Sinus Pressure, Bleeding Gums, Change in Voice, Dental Pain, Dry Mouth, Dysphagia, Halitosis, Hoarsness, Lip Swelling, Mouth Lesions, Mouth Pain, Odynophagia, Sore Throat, Throat Swelling, Tongue Swelling, Facial Pain, Neck Pain, Neck Mass, Other - Breasts Breasts: absent: As Per HPI, Change in Shape, Mass, Pain, Nipple Discharge, Nipple Inversion, Skin Changes, Swelling, Other - Cardiovascular Cardiovascular: Dyspnea on Exertion - Respiratory Respiratory: Dyspnea on Exertion - Gastrointestinal Gastrointestinal: Bloating, Constipation, Nausea, Vomiting - Genitourinary Genitourinary: absent: As Per HPI, Change in Urinary Stream, Difficulty Urinating, Dysuria, Flank Pain, Hematuria, Pyuria, Nocturia, Urinary Incontinence, Urinary Frequency, Urinary Hesitance, Urinary Urgency, Voiding Freq/Small Amts, Freq UTI, Hx Renal/Bladder Calculi, Hx /Renal Surgery, Bladder Distension, Other - Reproductive: Female Reproductive:Female: Post Menopausal - Menstruation Menstruation: Post Menopausal - Musculoskeletal Musculoskeletal: Muscle Weakness - Integumentary Integumentary: absent: As Per HPI, Acne, Alopecia, Bleeding Lesions, Change in Hair, Change in Nails, Change in Pigmentation, Changing Lesions, Dry Skin, Erythema, Furuncle, Hirsutism, Lesions, New Lesions, Non-Healing Lesions, Photosensitivity, Pruritus, Rash, Skin Pain, Skin Ulcer, Sores, Striae, Swelling , Unusual Bruising, Wounds, Jaundice, Other - Neurological Neurological: absent: As Per HPI, Abnormal Gait, Abnormal Hearing, Abnormal Movements, Abnormal Speech, Behavioral Changes, Burning Sensations, Confusion, Convulsions, Disequilibrium, Dizziness, Numbness, Focal Weakness, Frequent Falls , Headaches, Lack of Coordination, Loss of Vision, Memory Loss, Paresthesias, Radicular Pain, Restless Legs, Sensory Deficit, Syncope, Tingling, Tremor, Vertigo, Weakness, Other Visual Disturbances, Other - Psychiatric Psychiatric: Auditory Hallucinations - Endocrine Endocrine: Fatigue - Hematologic/Lymphatic Hematologic: absent: As Per HPI, Easy Bleeding, Easy Bruising, Lymphadenopathy, Other Past Patient History - Past Medical History & Family History Past Medical History?: Yes - Past Social History Smoking Status: Never Smoked - ENDOCRINE/METABOLIC Hx Diabetes Mellitus Type 2: Yes - HEMATOLOGICAL/ONCOLOGICAL Hx Blood Disorders: Yes Hx Cancer: Yes (PANCREATIC) - MUSCULOSKELETAL/RHEUMATOLOGICAL Hx Arthritis: Yes (BACK) Hx Falls: No - GASTROINTESTINAL Hx Gastrointestinal Disorders: Yes Other/Comment: PANCREATIC CANCER - PSYCHIATRIC Hx Substance Use: No - SURGICAL HISTORY Hx Surgeries: No - ANESTHESIA Hx Anesthesia: Yes Hx Anesthesia Reactions: No Hx Malignant Hyperthermia: No Has any member of the family had a problem w/ anesthesia?: No Meds Allergies/Adverse Reactions: Allergies Allergy/AdvReac Type Severity Reaction Status Date / Time No Known Allergies Allergy Verified 02/24/17 10:32 - Medications Medications: Current Medications Enoxaparin Sodium (Lovenox) 40 mg SC DAILY [facility] Last Admin: 02/25/17 09:18 Dose: 40 mg Insulin Human Regular (Novolin R) 0 unit SC ACHS [facility] PRN Reason: Protocol Last Admin: 02/25/17 07:38 Dose: Not Given Lisinopril (Zestril) 10 mg PO DAILY [facility] Last Admin: 02/25/17 09:18 Dose: 10 mg Morphine Sulfate (Morphine) 2 mg IVP Q4 PRN PRN Reason: Pain, moderate (4-7) Last Admin: 02/25/17 08:06 Dose: 2 mg Ondansetron HCl (Zofran Inj) 4 mg IVP Q6 PRN PRN Reason: Nausea/Vomiting Last Admin: 02/25/17 08:06 Dose: 4 mg Pantoprazole Sodium (Protonix Ec Tab) 20 mg PO DAILY [facility] Last Admin: 02/25/17 09:18 Dose: 20 mg Physical Exam - Constitutional Appears: Chronically Ill - Head Exam Head Exam: ATRAUMATIC, NORMAL INSPECTION, NORMOCEPHALIC - Eye Exam Eye Exam: EOMI, Normal appearance, PERRL Pupil Exam: NORMAL ACCOMODATION, PERRL - ENT Exam ENT Exam: Mucous Membranes Moist, Normal Exam - Respiratory Exam Respiratory Exam: Decreased Breath Sounds - Cardiovascular Exam Cardiovascular Exam: Tachycardia, REGULAR RHYTHM - GI/Abdominal Exam GI & Abdominal Exam: Distended, Firm, Hypoactive Bowel Sounds - Rectal Exam Rectal Exam: Deferred - Extremities Exam Extremities exam: Positive for: normal inspection - Back Exam Back exam: NORMAL INSPECTION - Neurological Exam Neurological exam: Alert, Oriented x3 - Psychiatric Exam Psychiatric exam: Normal Affect, Normal Mood - Skin Skin Exam: Normal Color, Warm Results - Vital Signs Recent Vital Signs: Last Vital Signs Temp 97.6 F 02/25/17 08:16 Pulse 92 H 02/25/17 08:16 Resp 20 02/25/17 08:16 BP 106/73 02/25/17 08:16 Pulse Ox 95 02/25/17 08:16 - Labs Result Diagrams: 02/24/17 11:37 02/24/17 11:37 Labs: Laboratory Results - last 24 hr 02/24/17 02/24/17 02/25/17 16:30 20:52 06:32 POC Glucose (mg/dL) 130 H 187 H 143 H 02/25/17 11:23 POC Glucose (mg/dL) 172 H Assessment & Plan - Assessment and Plan (Free Text) Assessment: palliative consult Code status Full Code, no advance directive on chart, PPS 40% I reviewed medical records, all diagnostic studies, examined and interviewed patient in the bed in presence of her daughter in law Maria Del Rosario. Translation provided using Official [employer] translation Patient is alert, oriented X 3 with affect that is appropriate. Skin is dry and warm. Breath sounds diminished, abdomen firm, distended and tender to touch. Patient reports chronic constipation. Sometimes, she is not able to go for 12 days, and once she goes is very painful for her. Patient also reports food intolerance, nausea and vomiting. Patient reports unwanted weight loss, unable to provide how much. patient reports abdominal pain relieved by paracentesis, but as ascites bulis up pain level does the same. I discussed patient's clinical presentation and elicited her impression about it. Patient is fully aware of her terminal diagnosis and reports being " tired from Chemo Tx". Patient reports being given life expectancy for 2 moths, what she outlived. We discussed end of life care. Patient cried a little, but said would want to be allowed natural when it comes. Patient would not want to have her life prolonged by the life support if the meaningful recovery was not expected. Patient would like to return home and be assisted with her chronic pain and other symptoms at home rather, than coming to the hospital every week for paracentesis. I did extensive teaching on appropriate and healthy diet as tolerated by the patient . Patient showed big interest in it, even took notes and looked so inspired what suggested her will to fight, but was just too tired to do so Impression * This is very unfortunate lady, chronically ill patient with metastatic pancreas disease * Patient is aware of terminal nature of the illness and limited life expectancy * Chronic constipation, nausea and diarrhea * Recurrent ascites and abdominal cancer pain * Patient reports being tired and wanting to stay home with her family Suggestion * Would consult GI for insertion of PleurX, the device for draining of ascites in comfort of patient's home * Pain management * Bowel regimen * Would add Diabetic Ensure to the diet If insertion of PleurX is possible, than I would discuss Hospice care at home . Thank you for consulting Palliative Care
--- NOTE | 2017-02-25 12:24 | US ---
Date of Procedure: 02/25/2017 PROCEDURE: Ultrasound-guided paracentesis, CPT 70373 Medications: 7 cc 1% Lidocaine HISTORY: Ascites, abdominal pain TECHNIQUE: Following informed consent , the patient was placed supine on the stretcher and the site was marked. A limited abdominal ultrasound was performed that showed a moderate amount of intra-abdominal fluid. Procedural time out was called and the Pt's abdomen was marked and prepped and draped in the usual sterile fashion. Ultrasound-guided large volume paracentesis performed. A total of 3.5 liters of slight serosanguinous fluid was removed without complication. IMPRESSION: Ultrasound-guided large volume paracentesis.
[2017-02-26] MEDS ORDERED: Sodium Chloride 0.9% 250 ML IV ONE ×4 (08:06→15:53)
[2017-02-26 08:36] LABS: BASO % 0.2 % (0.0-2.0); EOS % 0.4 % (0.0-4.0); HEMATOCRIT 33.4 % (34.0-47.0); LYMPH % 11.8 % (20.0-40.0); MEAN CELL VOLUME 83.1 fL (81.0-99.0); MEAN CORPUSCULAR HEMOGLOBIN 27.4 pg (27.0-31.0); MEAN PLATELET VOLUME 7.9 fL (7.2-11.7); MONO # 0.7 K/uL (0.0-0.8); MONO % 8.4 % (0.0-10.0); RED CELL DISTRIBUTION WIDTH 17.3 % (11.5-14.5); WHITE BLOOD COUNT 8.8 K/uL (4.8-10.8)
[2017-02-26] MEDS: (Novolin R) Insulin Human Regular 100 units/ml vial SC SCH ×4 (09:03→21:29)
[2017-02-26 09:21] LABS: CHLORIDE 96 mmol/L (98-107)
[2017-02-26] MEDS: Albumin Human 25% (12.5 gm/50 ml) IV SCH ×2 (09:21→16:50)
[2017-02-26 09:22] LABS: POTASSIUM 4.6 mmol/L (3.6-5.2); SODIUM 129 mmol/L (132-148)
[2017-02-26 09:24] LABS: GFR AFRICAN-AMERICAN > 60
[2017-02-26 09:25] LABS: BLOOD UREA NITROGEN 40 mg/dL (7-17); CALCIUM 7.9 mg/dl (8.6-10.4); CARBON DIOXIDE 19 mmol/L (22-30); GLUCOSE,RANDOM 130 mg/dL (65-105)
[2017-02-26] MEDS: Enoxaparin 40 mg Syringe SC SCH (09:54)
[2017-02-26] MEDS: Pantoprazole 20 mg EC Tab PO SCH (09:54)
[2017-02-26] MEDS ORDERED: Sodium Chloride 0.9% 1,000 ML IV SCH (16:30)
--- NOTE | 2017-02-26 17:36 | CP.PCM.PN ---
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 Objective - Vital Signs/Intake and Output Vital Signs (last 24 hours): Temp Pulse Resp BP Pulse Ox 97.4 F L 85 20 79/51 L 96 02/26/17 15:00 02/26/17 15:00 02/26/17 15:00 02/26/17 15:00 02/26/17 15:00 Intake and Output: 02/26/17 02/26/17 06:59 18:59 Intake Total 500 Output Total 200 Balance -200 500 - Medications Medications: Current Medications Albumin Human (Albumin Human 25% (12.5 Gm/50 Ml)) 12.5 gm IV Q8H [facility] Stop: 02/27/17 00:31 Last Admin: 02/26/17 16:50 Dose: 12.5 gm Docusate Sodium (Colace) 100 mg PO BID [facility] Last Admin: 02/26/17 17:06 Dose: 100 mg Enoxaparin Sodium (Lovenox) 40 mg SC DAILY [facility] Last Admin: 02/26/17 09:54 Dose: 40 mg Sodium Chloride (Sodium Chloride 0.9%) 1,000 mls @ 50 mls/hr IV .Q20H [facility] Stop: 02/27/17 12:29 Last Admin: 02/26/17 16:50 Dose: 50 mls/hr Insulin Human Regular (Novolin R) 0 unit SC ACHS [facility] PRN Reason: Protocol Last Admin: 02/26/17 17:06 Dose: 1 unit Lisinopril (Zestril) 10 mg PO DAILY [facility] Last Admin: 02/26/17 09:55 Dose: Not Given Morphine Sulfate (Morphine) 2 mg IVP Q4 PRN PRN Reason: Pain, moderate (4-7) Last Admin: 02/26/17 04:12 Dose: 2 mg Ondansetron HCl (Zofran Inj) 4 mg IVP Q6 PRN PRN Reason: Nausea/Vomiting Last Admin: 02/26/17 12:05 Dose: 4 mg Pantoprazole Sodium (Protonix Ec Tab) 20 mg PO DAILY [facility] Last Admin: 02/26/17 09:54 Dose: 20 mg Sennosides (Senokot Tab) 8.6 mg PO DAILY [facility] - Labs Labs: 02/26/17 08:28 02/26/17 08:28 PT 11.5 SECONDS (9.7-12.2) 02/24/17 11:37 INR 1.0 02/24/17 11:37 APTT 35 SECONDS (21-34) H 02/24/17 11:37 - Constitutional Appears: No Acute Distress - GI/Abdominal Exam GI & Abdominal Exam: Distended, Firm, Normal Bowel Sounds Assessment and Plan - Assessment and Plan (Free Text) Assessment: 66 yo female with HX of Pancreatic cancer admitted from home with complains of nausea, vomiting, abdominal pain and shortness of breath s/p paracentesis hypotension noted , bp in 70- 80's Patient received bolus x 250 nss , and started on albumin will start IV at 50 ml/hr x 1 lit.
--- NOTE | 2017-02-27 00:05 | CP.PCM.PN ---
Subjective - Date & Time of Evaluation Date of Evaluation: 02/25/17 - Subjective Subjective: WEAK, S/P PARACENTESIS, LUQ PAIN, NO NAUSEA, NO CHEST PAIN, NO SOB Objective - Vital Signs/Intake and Output Vital Signs (last 24 hours): Temp Pulse Resp BP Pulse Ox 97.4 F L 85 20 90/58 L 96 02/26/17 15:00 02/26/17 15:00 02/26/17 15:00 02/26/17 18:35 02/26/17 15:00 Intake and Output: 02/26/17 02/27/17 18:59 06:59 Intake Total 500 250 Balance 500 250 - Medications Medications: Current Medications Albumin Human (Albumin Human 25% (12.5 Gm/50 Ml)) 12.5 gm IV Q8H [facility] Stop: 02/27/17 00:31 Last Admin: 02/26/17 16:50 Dose: 12.5 gm Docusate Sodium (Colace) 100 mg PO BID [facility] Last Admin: 02/26/17 17:06 Dose: 100 mg Enoxaparin Sodium (Lovenox) 40 mg SC DAILY [facility] Last Admin: 02/26/17 09:54 Dose: 40 mg Fentanyl (Duragesic) 1 patch TD Q72H [facility] Last Admin: 02/26/17 20:10 Dose: 1 patch Sodium Chloride (Sodium Chloride 0.9%) 1,000 mls @ 50 mls/hr IV .Q20H [facility] Stop: 02/27/17 12:29 Last Admin: 02/26/17 16:50 Dose: 50 mls/hr Insulin Human Regular (Novolin R) 0 unit SC ACHS [facility] PRN Reason: Protocol Last Admin: 02/26/17 21:29 Dose: Not Given Lisinopril (Zestril) 10 mg PO DAILY [facility] Last Admin: 02/26/17 09:55 Dose: Not Given Morphine Sulfate (Morphine) 2 mg IVP Q4 PRN PRN Reason: Pain, moderate (4-7) Last Admin: 02/26/17 04:12 Dose: 2 mg Ondansetron HCl (Zofran Inj) 4 mg IVP Q6 PRN PRN Reason: Nausea/Vomiting Last Admin: 02/26/17 12:05 Dose: 4 mg Pantoprazole Sodium (Protonix Ec Tab) 20 mg PO DAILY [facility] Last Admin: 02/26/17 09:54 Dose: 20 mg Sennosides (Senokot Tab) 8.6 mg PO BID [facility] - Labs Labs: 02/26/17 08:28 02/26/17 08:28 PT 11.5 SECONDS (9.7-12.2) 02/24/17 11:37 INR 1.0 02/24/17 11:37 APTT 35 SECONDS (21-34) H 02/24/17 11:37 - Constitutional Appears: Non-toxic, No Acute Distress, Chronically Ill - Head Exam Head Exam: ATRAUMATIC, NORMAL INSPECTION, NORMOCEPHALIC - Eye Exam Eye Exam: EOMI, Normal appearance, PERRL Pupil Exam: NORMAL ACCOMODATION - ENT Exam ENT Exam: Mucous Membranes Moist, Normal Exam, Normal Oropharynx, TM's Normal Bilaterally - Neck Exam Neck Exam: Normal Inspection - Respiratory Exam Respiratory Exam: Clear to Ausculation Bilateral, NORMAL BREATHING PATTERN - Cardiovascular Exam Cardiovascular Exam: REGULAR RHYTHM, +S1, +S2 - GI/Abdominal Exam GI & Abdominal Exam: Distended, Firm - Rectal Exam Rectal Exam: NORMAL INSPECTION - Extremities Exam Extremities Exam: Normal Capillary Refill - Neurological Exam Neurological Exam: Abnormal Gait, Alert, Awake, CN II-XII Intact, Oriented x3 Assessment and Plan (1) Malignant ascites Assessment & Plan: S/P PARACENTESIS Status: Acute (2) Pancreatic cancer Status: Chronic (3) Malnutrition Status: Chronic
--- NOTE | 2017-02-27 00:07 | CP.PCM.PN ---
Subjective - Date & Time of Evaluation Date of Evaluation: 02/26/17 - Subjective Subjective: WEAK, HYPOTENSIVE, NO SOB, ABDMINAL PAIN, NO FEVER, NO COUGH S/P IVF Objective - Vital Signs/Intake and Output Vital Signs (last 24 hours): Temp Pulse Resp BP Pulse Ox 97.4 F L 85 20 90/58 L 96 02/26/17 15:00 02/26/17 15:00 02/26/17 15:00 02/26/17 18:35 02/26/17 15:00 Intake and Output: 02/26/17 02/27/17 18:59 06:59 Intake Total 500 250 Balance 500 250 - Medications Medications: Current Medications Albumin Human (Albumin Human 25% (12.5 Gm/50 Ml)) 12.5 gm IV Q8H [facility] Stop: 02/27/17 00:31 Last Admin: 02/26/17 16:50 Dose: 12.5 gm Docusate Sodium (Colace) 100 mg PO BID [facility] Last Admin: 02/26/17 17:06 Dose: 100 mg Enoxaparin Sodium (Lovenox) 40 mg SC DAILY [facility] Last Admin: 02/26/17 09:54 Dose: 40 mg Fentanyl (Duragesic) 1 patch TD Q72H [facility] Last Admin: 02/26/17 20:10 Dose: 1 patch Sodium Chloride (Sodium Chloride 0.9%) 1,000 mls @ 50 mls/hr IV .Q20H [facility] Stop: 02/27/17 12:29 Last Admin: 02/26/17 16:50 Dose: 50 mls/hr Insulin Human Regular (Novolin R) 0 unit SC ACHS [facility] PRN Reason: Protocol Last Admin: 02/26/17 21:29 Dose: Not Given Lisinopril (Zestril) 10 mg PO DAILY [facility] Last Admin: 02/26/17 09:55 Dose: Not Given Morphine Sulfate (Morphine) 2 mg IVP Q4 PRN PRN Reason: Pain, moderate (4-7) Last Admin: 02/26/17 04:12 Dose: 2 mg Ondansetron HCl (Zofran Inj) 4 mg IVP Q6 PRN PRN Reason: Nausea/Vomiting Last Admin: 02/26/17 12:05 Dose: 4 mg Pantoprazole Sodium (Protonix Ec Tab) 20 mg PO DAILY [facility] Last Admin: 02/26/17 09:54 Dose: 20 mg Sennosides (Senokot Tab) 8.6 mg PO BID [facility] - Labs Labs: 02/26/17 08:28 02/26/17 08:28 PT 11.5 SECONDS (9.7-12.2) 02/24/17 11:37 INR 1.0 02/24/17 11:37 APTT 35 SECONDS (21-34) H 02/24/17 11:37 - Constitutional Appears: In Acute Distress, Chronically Ill - Head Exam Head Exam: ATRAUMATIC, NORMAL INSPECTION, NORMOCEPHALIC - Eye Exam Eye Exam: EOMI, Normal appearance, PERRL Pupil Exam: NORMAL ACCOMODATION - ENT Exam ENT Exam: Mucous Membranes Moist, Normal Exam, Normal Oropharynx, TM's Normal Bilaterally - Neck Exam Neck Exam: Normal Inspection - Respiratory Exam Respiratory Exam: Clear to Ausculation Bilateral, NORMAL BREATHING PATTERN - Cardiovascular Exam Cardiovascular Exam: REGULAR RHYTHM, +S1, +S2 - GI/Abdominal Exam GI & Abdominal Exam: Distended, Mass - Rectal Exam Rectal Exam: NORMAL INSPECTION Assessment and Plan (1) Malignant ascites Status: Acute (2) Pancreatic cancer Status: Chronic (3) Malnutrition Status: Chronic
[2017-02-27] MEDS: Albumin Human 25% (12.5 gm/50 ml) IV SCH (00:39)
[2017-02-27 07:08] LABS: BASO % 0.3 % (0.0-2.0); EOS # 0.1 K/uL (0.0-0.7); HEMATOCRIT 28.6 % (34.0-47.0); LYMPH # 0.9 K/uL (1.0-4.3); LYMPH % 15.7 % (20.0-40.0); MEAN CELL VOLUME 84.2 fL (81.0-99.0); MEAN CORPUSCULAR HEMOGLOBIN 26.9 pg (27.0-31.0); MEAN CORPUSCULAR HGB CONC 31.9 g/dL (33.0-37.0); MEAN PLATELET VOLUME 8.6 fL (7.2-11.7); MONO # 0.7 K/uL (0.0-0.8); MONO % 11.3 % (0.0-10.0); RED CELL DISTRIBUTION WIDTH 17.5 % (11.5-14.5)
[2017-02-27] MEDS: (Novolin R) Insulin Human Regular 100 units/ml vial SC SCH ×4 (07:31→21:49)
[2017-02-27 07:32] LABS: CHLORIDE 97 mmol/L (98-107); POTASSIUM 4.2 mmol/L (3.6-5.2); SODIUM 131 mmol/L (132-148)
[2017-02-27 07:35] LABS: CARBON DIOXIDE 20 mmol/L (22-30); GFR AFRICAN-AMERICAN > 60
[2017-02-27 07:36] LABS: BLOOD UREA NITROGEN 41 mg/dL (7-17); CALCIUM 7.9 mg/dl (8.6-10.4); GLUCOSE,RANDOM 103 mg/dL (65-105)
[2017-02-27] MEDS: Pantoprazole 20 mg EC Tab PO SCH (09:38)
[2017-02-27] MEDS: Enoxaparin 40 mg Syringe SC SCH (09:38)
--- NOTE | 2017-02-27 11:59 | RAD ---
HISTORY: vomiting r/o obstruction COMPARISON: Abdomen and pelvis CT examination dated 02/16/2017 FINDINGS: BOWEL: Central small bowel loops are mildly to mild to moderately distended with gas. Limited gas is seen in the left hemicolon with nearly none at the right. Retained fecal material and gas are seen in the rectosigmoid proximally. Consider possible developing ileus. A distal small bowel obstruction is not favored but is not completely excluded. Air-fluid levels identified in the erect view within small bowel. A Rounded radiodensity seen at the left upper quadrant abdomen not seen on the prior abdomen and pelvis CT 02/16/2017 and could represent retained oral contrast within a large diverticulum or interval ingestion of a foreign body. No definite free intrarenal gas. BONES: Degenerative lumbar spondylosis and sacroiliac joint changes are identified. OTHER FINDINGS: None. IMPRESSION: Potential developing ileus is favored over distal small bowel obstruction developing. Clinical correlation and radiographic follow-up are advised. A rounded radiodensity may reflect oral contrast from prior CT and diverticulum at the left upper quadrant or an interval ingested retained foreign body. External artifact is possible.
[2017-02-27 13:45] LABS: BASO % 0.2 % (0.0-2.0); EOS % 0.2 % (0.0-4.0); HEMATOCRIT 31.4 % (34.0-47.0); LYMPH # 0.5 K/uL (1.0-4.3); LYMPH % 5.7 % (20.0-40.0); MEAN CELL VOLUME 83.6 fL (81.0-99.0); MEAN CORPUSCULAR HEMOGLOBIN 26.9 pg (27.0-31.0); MEAN CORPUSCULAR HGB CONC 32.2 g/dL (33.0-37.0); MEAN PLATELET VOLUME 8.1 fL (7.2-11.7); MONO # 0.8 K/uL (0.0-0.8); MONO % 9.1 % (0.0-10.0); PLATELET COUNT 195 K/uL (130-400); RED CELL DISTRIBUTION WIDTH 17.6 % (11.5-14.5)
[2017-02-27 13:47] LABS: WHITE BLOOD COUNT 9.1 K/uL (4.8-10.8)
[2017-02-27] MEDS ORDERED: Sodium Chloride 0.9% 250 ML IV ONE (13:49)
[2017-02-27 14:16] LABS: NEUTROPHIL 70 % (50-75); REACTIVE LYMPHOCYTES 1 % (0-0); TOTAL CELLS COUNTED 100
--- NOTE | 2017-02-27 14:19 | CP.PCM.PN ---
Subjective - Date & Time of Evaluation Date of Evaluation: 02/27/17 Time of Evaluation: 14:15 - Subjective Subjective: Patient complains of mild pain to left upper quadrant. She reports nausea preventing her from consuming food and liquids. Objective - Vital Signs/Intake and Output Vital Signs (last 24 hours): Temp Pulse Resp BP Pulse Ox 97.9 F 89 20 93/61 L 99 02/27/17 07:03 02/27/17 07:03 02/27/17 07:03 02/27/17 07:03 02/27/17 07:03 Intake and Output: 02/27/17 02/27/17 06:59 18:59 Intake Total 250 Balance 250 - Medications Medications: Current Medications Docusate Sodium (Colace) 100 mg PO BID [facility] Last Admin: 02/27/17 09:38 Dose: 100 mg Enoxaparin Sodium (Lovenox) 40 mg SC DAILY [facility] Last Admin: 02/27/17 09:38 Dose: 40 mg Fentanyl (Duragesic) 1 patch TD Q72H [facility] Last Admin: 02/26/17 20:10 Dose: 1 patch Sodium Chloride (Sodium Chloride 0.9%) 250 mls @ 100 mls/hr IV .Q2H[facility] Stop: 02/27/17 16:18 Insulin Human Regular (Novolin R) 0 unit SC [facility] PRN Reason: Protocol Last Admin: 02/27/17 13:09 Dose: 1 unit Lisinopril (Zestril) 10 mg PO DAILY [facility] Last Admin: 02/27/17 09:39 Dose: Not Given Morphine Sulfate (Morphine) 2 mg IVP Q4 PRN PRN Reason: Pain, moderate (4-7) Last Admin: 02/27/17 05:50 Dose: 2 mg Ondansetron HCl (Zofran Inj) 4 mg IVP Q6 PRN PRN Reason: Nausea/Vomiting Last Admin: 02/27/17 12:37 Dose: 4 mg Pantoprazole Sodium (Protonix Inj) 40 mg IVP DAILY [facility] Sennosides (Senokot Tab) 8.6 mg PO BID [facility] Last Admin: 02/27/17 09:38 Dose: 8.6 mg - Labs Labs: 02/27/17 13:41 02/27/17 07:00 PT 11.5 SECONDS (9.7-12.2) 02/24/17 11:37 INR 1.0 02/24/17 11:37 APTT 35 SECONDS (21-34) H 02/24/17 11:37 - Constitutional Appears: Chronically Ill - Head Exam Head Exam: ATRAUMATIC, NORMAL INSPECTION, NORMOCEPHALIC - Eye Exam Eye Exam: EOMI, Normal appearance, PERRL Pupil Exam: NORMAL ACCOMODATION, PERRL - ENT Exam ENT Exam: Mucous Membranes Moist, Normal Exam - Neck Exam Neck Exam: Full ROM, Normal Inspection - Respiratory Exam Respiratory Exam: Decreased Breath Sounds, NORMAL BREATHING PATTERN - Cardiovascular Exam Cardiovascular Exam: REGULAR RHYTHM - GI/Abdominal Exam GI & Abdominal Exam: Diminished Bowel Sounds, Hypoactive Bowel Sounds - Rectal Exam Rectal Exam: Deferred - Extremities Exam Extremities Exam: Normal Inspection - Back Exam Back Exam: NORMAL INSPECTION - Neurological Exam Neurological Exam: Alert, Oriented x3 Neuro motor strength exam: Left Upper Extremity: 3, Right Upper Extremity: 3, Left Lower Extremity: 3, Right Lower Extremity: 3 - Psychiatric Exam Psychiatric exam: Normal Affect, Normal Mood - Skin Skin Exam: Normal Color, Warm Assessment and Plan - Assessment and Plan (Free Text) Assessment: Patient is S/P paracentesid day 2. Abdomen is softer, less distended. BS hypoactive. Abdominal pain mild to moderate to left upper quadrants. Patient is burping frequently and complains of nausea. The lunch tray was there not touched by the patient. patient reports difficulties moving her bowels. Colace and Senocot added to bowel regimen and Fentanyl patch for pain. I discussed goals of care with patient. On pevious meeting she said she was tired and would want to stay home rather than be coming to the hospital so often. Using the [employer] translation I explained to the patient about possibility of insertion PleurX catheter and its purpose. patient said was to think about it. Further, we discussed Code status. Patient is fully aware of her terminal prognosis as she was told by her oncologist. I asked her to tell me how would she want to when her time comes. Patient was very clear that she would not want any aggressive measures to be applied if meaningful recovery was not expected. She also said that she would want to at home and peacefully. I suggested to assist her with signing the POLST when patient requested family to be present. I also discussed in home hospice and how it works and ask her to let us know when she thinks she is ready for it. Patient agreed. Impression * This is a very sad case about terminally ill lady aware of her terminal prognosis * Patient behaves very stoic and does not even cry * Abdominal pain and nausea are affecting her PO intakes * Abdominal ascites requiring frequent parenthesis * Patient prefers natural and peaceful at her home when her time comes; wants to sign POLST in presence of her family Suggestion * Would insert PleurX catheter and discharge home with VNS for education how to use it * ed case manager should order enough supply of PleurX for home before patient undergoes procedure * Patient should be DNR/DNI * Hospice care will be the next level of care for this very unfortunate patient.
[2017-02-27] MEDS: Dextrose 5%/0.9% NS 1,000 ML IV SCH (16:53)
--- NOTE | 2017-02-27 17:29 | CP.PCM.PN ---
Subjective - Date & Time of Evaluation Date of Evaluation: 02/27/17 Time of Evaluation: 15:15 - Subjective Subjective: Comfortable but poor appetite Objective - Vital Signs/Intake and Output Vital Signs (last 24 hours): Temp Pulse Resp BP Pulse Ox 97.3 F L 102 H 20 96/67 L 96 02/27/17 15:49 02/27/17 15:49 02/27/17 15:49 02/27/17 15:49 02/27/17 15:49 Intake and Output: 02/27/17 02/27/17 06:59 18:59 Intake Total 250 890 Balance 250 890 - Medications Medications: Current Medications Docusate Sodium (Colace) 100 mg PO BID [facility] Last Admin: 02/27/17 09:38 Dose: 100 mg Enoxaparin Sodium (Lovenox) 40 mg SC DAILY [facility] Last Admin: 02/27/17 09:38 Dose: 40 mg Fentanyl (Duragesic) 1 patch TD Q72H [facility] Last Admin: 02/26/17 20:10 Dose: 1 patch Ceftriaxone Sodium 1 gm/ (Sodium Chloride) 100 mls @ 100 mls/hr IVPB DAILY [facility] Dextrose/Sodium Chloride (Dextrose 5%/0.9% Ns 1000 Ml) 1,000 mls @ 50 mls/hr IV .Q20H [facility] Last Admin: 02/27/17 16:53 Dose: 50 mls/hr Insulin Human Regular (Novolin R) 0 unit SC ACHS [facility] PRN Reason: Protocol Last Admin: 02/27/17 16:57 Dose: Not Given Lisinopril (Zestril) 10 mg PO DAILY [facility] Last Admin: 02/27/17 09:39 Dose: Not Given Morphine Sulfate (Morphine) 2 mg IVP Q4 PRN PRN Reason: Pain, moderate (4-7) Last Admin: 02/27/17 05:50 Dose: 2 mg Ondansetron HCl (Zofran Inj) 4 mg IVP Q6 PRN PRN Reason: Nausea/Vomiting Last Admin: 02/27/17 12:37 Dose: 4 mg Pantoprazole Sodium (Protonix Inj) 40 mg IVP DAILY [facility] Last Admin: 02/27/17 14:27 Dose: 40 mg Sennosides (Senokot Tab) 8.6 mg PO BID [facility] Last Admin: 02/27/17 09:38 Dose: 8.6 mg - Labs Labs: 02/27/17 13:41 02/27/17 07:00 PT 11.5 SECONDS (9.7-12.2) 02/24/17 11:37 INR 1.0 02/24/17 11:37 APTT 35 SECONDS (21-34) H 02/24/17 11:37 - Head Exam Head Exam: ATRAUMATIC - Eye Exam Eye Exam: Normal appearance - ENT Exam ENT Exam: Mucous Membranes Dry - Respiratory Exam Respiratory Exam: NORMAL BREATHING PATTERN - Cardiovascular Exam Cardiovascular Exam: +S1, +S2 - GI/Abdominal Exam GI & Abdominal Exam: Normal Bowel Sounds Assessment and Plan (1) Pancreatic cancer Assessment & Plan: outside records reviewed 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
--- NOTE | 2017-02-27 17:30 | CP.PCM.PN ---
Subjective - Date & Time of Evaluation Date of Evaluation: 02/26/17 Time of Evaluation: 19:45 - Subjective Subjective: Feels better s/p paracentesis, poor appetite Objective - Vital Signs/Intake and Output Vital Signs (last 24 hours): Temp Pulse Resp BP Pulse Ox 97.3 F L 102 H 20 96/67 L 96 02/27/17 15:49 02/27/17 15:49 02/27/17 15:49 02/27/17 15:49 02/27/17 15:49 Intake and Output: 02/27/17 02/27/17 06:59 18:59 Intake Total 250 890 Balance 250 890 - Medications Medications: Current Medications Docusate Sodium (Colace) 100 mg PO BID [facility] Last Admin: 02/27/17 09:38 Dose: 100 mg Enoxaparin Sodium (Lovenox) 40 mg SC DAILY [facility] Last Admin: 02/27/17 09:38 Dose: 40 mg Fentanyl (Duragesic) 1 patch TD Q72H [facility] Last Admin: 02/26/17 20:10 Dose: 1 patch Ceftriaxone Sodium 1 gm/ (Sodium Chloride) 100 mls @ 100 mls/hr IVPB DAILY [facility] Dextrose/Sodium Chloride (Dextrose 5%/0.9% Ns 1000 Ml) 1,000 mls @ 50 mls/hr IV .Q20H [facility] Last Admin: 02/27/17 16:53 Dose: 50 mls/hr Insulin Human Regular (Novolin R) 0 unit SC ACHS [facility] PRN Reason: Protocol Last Admin: 02/27/17 16:57 Dose: Not Given Lisinopril (Zestril) 10 mg PO DAILY [facility] Last Admin: 02/27/17 09:39 Dose: Not Given Morphine Sulfate (Morphine) 2 mg IVP Q4 PRN PRN Reason: Pain, moderate (4-7) Last Admin: 02/27/17 05:50 Dose: 2 mg Ondansetron HCl (Zofran Inj) 4 mg IVP Q6 PRN PRN Reason: Nausea/Vomiting Last Admin: 02/27/17 12:37 Dose: 4 mg Pantoprazole Sodium (Protonix Inj) 40 mg IVP DAILY [facility] Last Admin: 02/27/17 14:27 Dose: 40 mg Sennosides (Senokot Tab) 8.6 mg PO BID [facility] Last Admin: 02/27/17 09:38 Dose: 8.6 mg - Labs Labs: 02/27/17 13:41 02/27/17 07:00 PT 11.5 SECONDS (9.7-12.2) 02/24/17 11:37 INR 1.0 02/24/17 11:37 APTT 35 SECONDS (21-34) H 02/24/17 11:37 - Head Exam Head Exam: ATRAUMATIC - Eye Exam Eye Exam: Normal appearance - ENT Exam ENT Exam: Mucous Membranes Dry - Respiratory Exam Respiratory Exam: NORMAL BREATHING PATTERN - Cardiovascular Exam Cardiovascular Exam: +S1, +S2 - GI/Abdominal Exam GI & Abdominal Exam: Normal Bowel Sounds Assessment and Plan (1) Pancreatic cancer Assessment & Plan: stage IV supportive care palliative care f/u Status: Chronic
--- NOTE | 2017-02-27 21:09 | CP.PCM.CON ---
History of Present Illness - History of Present Illness History of Present Illness: Surgery Consult note. Dr. Gold 66yo F with PMHx of Advanced pancreatic CA here for evaluation of Abd pain, distention, N/V. Surgery consulted for possible ileus vs. obstruction. Patient states that she has had increasing abd distention, n/v for the past two months. She states that she has not had a regular BM in about 2 months. She did have an urge for BM tonight and upon attempting, she had very minimal ("few drops") liquid stool, denies blood. She states she has been having decreased appetite over the same time period. She is also c/o nausea and vomiting (2 episodes today ), non bloody, non bilious. She states that she has been receiving chemo but recently decided to stop as "she is tired of being on chemo." She reports weight loss. She reports multiple paracenthesis with rapid return of abdominal distention. Last paracenthesis was 2 days ago with 3.5L removed. She also reports decreased urine output over the past week. Denies F/C. No CP/SOB. No headaches. No recent illness, no sick contacts. Patient denies any foreign body ingestion. PMHx: Stage 4 Pancreatic CA w/ malignant ascites PSHx: Denies Family Hx: Denies Social Hx: Denies tobacco, Denies ETOH, Denies illicit drugs. NKDA Review of Systems - Review of Systems All systems: reviewed and no additional remarkable complaints except - Constitutional Constitutional: Anorexia, Weight Loss. absent: Chills, Fever - Cardiovascular Cardiovascular: absent: Chest Pain, Dyspnea - Respiratory Respiratory: absent: Cough, Dyspnea - Gastrointestinal Gastrointestinal: Abdominal Pain, Constipation. absent: Hematemesis - Genitourinary Genitourinary: absent: Dysuria, Urinary Incontinence, Urinary Frequency - Musculoskeletal Musculoskeletal: absent: Back Pain - Neurological Neurological: absent: Abnormal Gait, Dizziness, Focal Weakness, Headaches Past Patient History - Past Medical History & Family History Past Medical History?: Yes Past Family History: Reviewed and not pertinent - Past Social History Smoking Status: Never Smoked Alcohol: None Drugs: Denies - ENDOCRINE/METABOLIC Hx Diabetes Mellitus Type 2: Yes - HEMATOLOGICAL/ONCOLOGICAL Hx Blood Disorders: Yes Hx Cancer: Yes (PANCREATIC) - MUSCULOSKELETAL/RHEUMATOLOGICAL Hx Arthritis: Yes (BACK) Hx Falls: No - GASTROINTESTINAL Hx Gastrointestinal Disorders: Yes Other/Comment: PANCREATIC CANCER - PSYCHIATRIC Hx Substance Use: No - SURGICAL HISTORY Hx Surgeries: No - ANESTHESIA Hx Anesthesia: Yes Hx Anesthesia Reactions: No Hx Malignant Hyperthermia: No Has any member of the family had a problem w/ anesthesia?: No Meds Allergies/Adverse Reactions: Allergies Allergy/AdvReac Type Severity Reaction Status Date / Time No Known Allergies Allergy Verified 02/24/17 10:32 - Medications Medications: Current Medications Docusate Sodium (Colace) 100 mg PO BID [facility] Last Admin: 02/27/17 09:38 Dose: 100 mg Enoxaparin Sodium (Lovenox) 40 mg SC DAILY [facility] Last Admin: 02/27/17 09:38 Dose: 40 mg Fentanyl (Duragesic) 1 patch TD Q72H [facility] Last Admin: 02/26/17 20:10 Dose: 1 patch Ceftriaxone Sodium 1 gm/ (Sodium Chloride) 100 mls @ 100 mls/hr IVPB DAILY [facility] Last Admin: 02/27/17 18:47 Dose: 100 mls/hr Dextrose/Sodium Chloride (Dextrose 5%/0.9% Ns 1000 Ml) 1,000 mls @ 50 mls/hr IV .Q20H [facility] Last Admin: 02/27/17 16:53 Dose: 50 mls/hr Insulin Human Regular (Novolin R) 0 unit SC ACHS [facility] PRN Reason: Protocol Last Admin: 02/27/17 16:57 Dose: Not Given Lisinopril (Zestril) 10 mg PO DAILY [facility] Last Admin: 02/27/17 09:39 Dose: Not Given Morphine Sulfate (Morphine) 2 mg IVP Q4 PRN PRN Reason: Pain, moderate (4-7) Last Admin: 02/27/17 05:50 Dose: 2 mg Ondansetron HCl (Zofran Inj) 4 mg IVP Q6 PRN PRN Reason: Nausea/Vomiting Last Admin: 02/27/17 12:37 Dose: 4 mg Pantoprazole Sodium (Protonix Inj) 40 mg IVP DAILY [facility] Last Admin: 02/27/17 14:27 Dose: 40 mg Sennosides (Senokot Tab) 8.6 mg PO BID [facility] Last Admin: 02/27/17 09:38 Dose: 8.6 mg Physical Exam - Constitutional Appears: Non-toxic, No Acute Distress, Cachectic, Chronically Ill - Head Exam Head Exam: ATRAUMATIC, NORMOCEPHALIC - Eye Exam Eye Exam: EOMI, Normal appearance - ENT Exam ENT Exam: Mucous Membranes Dry - Neck Exam Neck exam: Positive for: Full Rom, Normal Inspection - Respiratory Exam Respiratory Exam: NORMAL BREATHING PATTERN. absent: Accessory Muscle Use, Chest Wall Tenderness, Wheezes, Respiratory Distress - Cardiovascular Exam Cardiovascular Exam: absent: JVD - GI/Abdominal Exam GI & Abdominal Exam: Diminished Bowel Sounds, Distended, Firm, Tenderness (mild tenderness diffusely). absent: Guarding, Rebound - Rectal Exam Rectal Exam: Fecal Impaction Additional comments: External hemorrhoids noted. Non-tender to palpation inside rectum. Brown stool deep in rectum. - Extremities Exam Extremities exam: Positive for: full ROM, normal inspection. Negative for: calf tenderness, tenderness - Back Exam Back exam: NORMAL INSPECTION - Neurological Exam Neurological exam: Alert, Oriented x3 - Skin Skin Exam: Dry, Intact, Normal Color, Warm Results - Vital Signs Recent Vital Signs: Last Vital Signs Temp 97.3 F L 02/27/17 15:49 Pulse 102 H 02/27/17 15:49 Resp 20 02/27/17 15:49 BP 96/67 L 02/27/17 15:49 Pulse Ox 96 02/27/17 15:49 - Labs Result Diagrams: 02/27/17 13:41 02/27/17 07:00 Labs: Laboratory Results - last 24 hr 02/26/17 02/27/17 02/27/17 21:13 06:23 07:00 WBC 6.0 RBC 3.39 L Hgb 9.1 L Hct 28.6 L MCV 84.2 MCH 26.9 L MCHC 31.9 L RDW 17.5 H Plt Count 169 MPV 8.6 Neut % (Auto) 71.7 Lymph % (Auto) 15.7 L Davison % (Auto) 11.3 H Eos % (Auto) 1.0 Baso % (Auto) 0.3 Neut # 4.3 Lymph # 0.9 L Davison # 0.7 Eos # 0.1 Baso # 0.0 Neutrophils % (Manual) Band Neutrophils % Lymphocytes % (Manual) Reactive Lymphs % Monocytes % (Manual) Platelet Estimate Anisocytosis (manual) Ovalocytes Sodium Potassium Chloride Carbon Dioxide Anion Gap BUN Creatinine Est GFR ( Amer) Est GFR (Non-Af Amer) POC Glucose (mg/dL) 135 H 120 H Random Glucose Calcium 02/27/17 02/27/17 02/27/17 07:00 11:05 13:41 WBC 9.1 D RBC 3.76 L Hgb 10.1 L Hct 31.4 L MCV 83.6 MCH 26.9 L MCHC 32.2 L RDW 17.6 H Plt Count 195 MPV 8.1 Neut % (Auto) 84.8 H Lymph % (Auto) 5.7 L Davison % (Auto) 9.1 Eos % (Auto) 0.2 Baso % (Auto) 0.2 Neut # 7.7 H Lymph # 0.5 L Davison # 0.8 Eos # 0.0 Baso # 0.0 Neutrophils % (Manual) 70 Band Neutrophils % 15 H* Lymphocytes % (Manual) 5 L Reactive Lymphs % 1 H Monocytes % (Manual) 9 Platelet Estimate Normal Anisocytosis (manual) Slight Ovalocytes Slight Sodium 131 L Potassium 4.2 Chloride 97 L Carbon Dioxide 20 L Anion Gap 18 BUN 41 H Creatinine 1.0 Est GFR ( Amer) > 60 Est GFR (Non-Af Amer) 55 POC Glucose (mg/dL) 184 H Random Glucose 103 Calcium 7.9 L 02/27/17 16:24 WBC RBC Hgb Hct MCV MCH MCHC RDW Plt Count MPV Neut % (Auto) Lymph % (Auto) Davison % (Auto) Eos % (Auto) Baso % (Auto) Neut # Lymph # Davison # Eos # Baso # Neutrophils % (Manual) Band Neutrophils % Lymphocytes % (Manual) Reactive Lymphs % Monocytes % (Manual) Platelet Estimate Anisocytosis (manual) Ovalocytes Sodium Potassium Chloride Carbon Dioxide Anion Gap BUN Creatinine Est GFR ( Amer) Est GFR (Non-Af Amer) POC Glucose (mg/dL) 128 H Random Glucose Calcium Assessment & Plan - Assessment and Plan (Free Text) Assessment: 66yo F with PMHx of Stage 4 Pancreatic CA here with ileus vs. distal obstruction vs. fecal impaction - Abd X-ray noted. Round radiodensity in LUQ noted. Patient denies any foreign body ingestion. - Dehydration - IVF - NPO - Enemas - Possible OR tomorrow for disimpaction - Agree with PleurX cath placement - Zofran - Protonix - Pain management Discussed case with Dr. Alla Dillard PGY1 surgery pager: [phone]
--- NOTE | 2017-02-27 22:34 | CP.PCM.PN ---
Subjective - Subjective Subjective: FEELS WEAK, ABDOMINAL PAIN, AND SICK FULL CODE Objective - Vital Signs/Intake and Output Vital Signs (last 24 hours): Temp Pulse Resp BP Pulse Ox 97.3 F L 102 H 20 96/67 L 96 02/27/17 15:49 02/27/17 15:49 02/27/17 15:49 02/27/17 15:49 02/27/17 15:49 Intake and Output: 02/27/17 02/28/17 18:59 06:59 Intake Total 890 Balance 890 - Medications Medications: Current Medications Docusate Sodium (Colace) 100 mg PO BID [facility] Last Admin: 02/27/17 09:38 Dose: 100 mg Enoxaparin Sodium (Lovenox) 40 mg SC DAILY [facility] Last Admin: 02/27/17 09:38 Dose: 40 mg Fentanyl (Duragesic) 1 patch TD Q72H [facility] Last Admin: 02/26/17 20:10 Dose: 1 patch Ceftriaxone Sodium 1 gm/ (Sodium Chloride) 100 mls @ 100 mls/hr IVPB DAILY [facility] Last Admin: 02/27/17 18:47 Dose: 100 mls/hr Dextrose/Sodium Chloride (Dextrose 5%/0.9% Ns 1000 Ml) 1,000 mls @ 50 mls/hr IV .Q20H [facility] Last Admin: 02/27/17 16:53 Dose: 50 mls/hr Insulin Human Regular (Novolin R) 0 unit SC ACHS [facility] PRN Reason: Protocol Last Admin: 02/27/17 21:49 Dose: Not Given Lisinopril (Zestril) 10 mg PO DAILY [facility] Last Admin: 02/27/17 09:39 Dose: Not Given Morphine Sulfate (Morphine) 2 mg IVP Q4 PRN PRN Reason: Pain, moderate (4-7) Last Admin: 02/27/17 05:50 Dose: 2 mg Ondansetron HCl (Zofran Inj) 4 mg IVP Q6 PRN PRN Reason: Nausea/Vomiting Last Admin: 02/27/17 12:37 Dose: 4 mg Pantoprazole Sodium (Protonix Inj) 40 mg IVP DAILY [facility] Last Admin: 02/27/17 14:27 Dose: 40 mg Sennosides (Senokot Tab) 8.6 mg PO BID [facility] Last Admin: 02/27/17 09:38 Dose: 8.6 mg - Labs Labs: 02/27/17 13:41 02/27/17 07:00 PT 11.5 SECONDS (9.7-12.2) 02/24/17 11:37 INR 1.0 02/24/17 11:37 APTT 35 SECONDS (21-34) H 02/24/17 11:37 - Constitutional Appears: Non-toxic, No Acute Distress, Cachectic, Chronically Ill - Head Exam Head Exam: ATRAUMATIC, NORMAL INSPECTION, NORMOCEPHALIC - Eye Exam Eye Exam: EOMI, Normal appearance, PERRL Pupil Exam: NORMAL ACCOMODATION - ENT Exam ENT Exam: Mucous Membranes Moist, Normal Exam, Normal Oropharynx, TM's Normal Bilaterally - Neck Exam Neck Exam: Full ROM, Normal Inspection - Respiratory Exam Respiratory Exam: Clear to Ausculation Bilateral, NORMAL BREATHING PATTERN - Cardiovascular Exam Cardiovascular Exam: REGULAR RHYTHM, +S1, +S2 - GI/Abdominal Exam GI & Abdominal Exam: Distended, Firm, Normal Bowel Sounds (ASCITES) - Rectal Exam Rectal Exam: NORMAL INSPECTION - Extremities Exam Extremities Exam: Normal Capillary Refill - Neurological Exam Neurological Exam: Alert, Awake, CN II-XII Intact, Normal Gait, Oriented x3 - Psychiatric Exam Psychiatric exam: Depressed, Flat Affect - Skin Skin Exam: Intact Assessment and Plan (1) Malignant ascites Status: Acute (2) Pancreatic cancer Status: Chronic (3) Malnutrition Status: Chronic
[2017-02-28 08:01] LABS: BASO % 0.1 % (0.0-2.0); EOS # 0.1 K/uL (0.0-0.7); EOS % 0.9 % (0.0-4.0); HEMATOCRIT 32.5 % (34.0-47.0); LYMPH # 1.1 K/uL (1.0-4.3); LYMPH % 13.9 % (20.0-40.0); MEAN CORPUSCULAR HEMOGLOBIN 27.3 pg (27.0-31.0); MEAN CORPUSCULAR HGB CONC 32.9 g/dL (33.0-37.0); MEAN PLATELET VOLUME 8.3 fL (7.2-11.7); MONO % 11.7 % (0.0-10.0); PLATELET COUNT 219 K/uL (130-400); RED CELL DISTRIBUTION WIDTH 17.3 % (11.5-14.5); WHITE BLOOD COUNT 8.2 K/uL (4.8-10.8)
[2017-02-28] MEDS: (Novolin R) Insulin Human Regular 100 units/ml vial SC SCH ×4 (08:16→22:16)
--- NOTE | 2017-02-28 08:53 | CP.PCM.PN ---
Subjective - Date & Time of Evaluation Date of Evaluation: 02/28/17 Time of Evaluation: 07:30 - Subjective Subjective: General Surgery- Dr. Gold Pt S&E at bedside this AM. No acute events overnight. Pt states no bowel movement after administration of soap water enema yesterday evening. + flatus. Denies CP/SOB. Objective - Vital Signs/Intake and Output Vital Signs (last 24 hours): Temp Pulse Resp BP Pulse Ox 97.9 F 87 20 108/73 99 02/28/17 08:38 02/28/17 08:38 02/28/17 08:38 02/28/17 08:38 02/28/17 08:38 Intake and Output: 02/28/17 02/28/17 06:59 18:59 Intake Total 1000 Balance 1000 - Medications Medications: Current Medications Docusate Sodium (Colace) 100 mg PO BID [facility] Last Admin: 02/27/17 09:38 Dose: 100 mg Enoxaparin Sodium (Lovenox) 40 mg SC DAILY [facility] Last Admin: 02/27/17 09:38 Dose: 40 mg Fentanyl (Duragesic) 1 patch TD Q72H [facility] Last Admin: 02/26/17 20:10 Dose: 1 patch Ceftriaxone Sodium 1 gm/ (Sodium Chloride) 100 mls @ 100 mls/hr IVPB DAILY [facility] Last Admin: 02/27/17 18:47 Dose: 100 mls/hr Dextrose/Sodium Chloride (Dextrose 5%/0.9% Ns 1000 Ml) 1,000 mls @ 50 mls/hr IV .Q20H [facility] Last Admin: 02/27/17 16:53 Dose: 50 mls/hr Insulin Human Regular (Novolin R) 0 unit SC [facility] PRN Reason: Protocol Last Admin: 02/28/17 08:16 Dose: 1 unit Lisinopril (Zestril) 10 mg PO DAILY [facility] Last Admin: 02/27/17 09:39 Dose: Not Given Mineral Oil (Fleet Mineral Oil Enema) 135 ml WI ONCE ONE Stop: 02/28/17 09:01 Morphine Sulfate (Morphine) 2 mg IVP Q4 PRN PRN Reason: Pain, moderate (4-7) Last Admin: 02/27/17 05:50 Dose: 2 mg Ondansetron HCl (Zofran Inj) 4 mg IVP Q6 PRN PRN Reason: Nausea/Vomiting Last Admin: 02/27/17 12:37 Dose: 4 mg Pantoprazole Sodium (Protonix Inj) 40 mg IVP DAILY [facility] Last Admin: 02/27/17 14:27 Dose: 40 mg Sennosides (Senokot Tab) 8.6 mg PO BID [facility] Last Admin: 02/27/17 09:38 Dose: 8.6 mg - Labs Labs: 02/28/17 07:55 02/27/17 07:00 PT 11.5 SECONDS (9.7-12.2) 02/24/17 11:37 INR 1.0 02/24/17 11:37 APTT 35 SECONDS (21-34) H 02/24/17 11:37 - Constitutional Appears: No Acute Distress - Eye Exam Eye Exam: EOMI - ENT Exam ENT Exam: Mucous Membranes Moist - Respiratory Exam Respiratory Exam: NORMAL BREATHING PATTERN. absent: Accessory Muscle Use, Rhonchi, Wheezes - Cardiovascular Exam Cardiovascular Exam: +S1, +S2 - GI/Abdominal Exam GI & Abdominal Exam: Firm, Tenderness. absent: Rigid, Diminished Bowel Sounds - Extremities Exam Extremities Exam: absent: Joint Swelling - Neurological Exam Neurological Exam: Alert, Awake, Oriented x3 - Psychiatric Exam Psychiatric exam: Normal Affect - Skin Skin Exam: Intact, Normal Color Assessment and Plan - Assessment and Plan (Free Text) Assessment: 66F pmhx of Pancreatic Ca; SBO vs Ileus vs Fecal impaction Plan: - IVF - mineral oil enema - await return of bowel function - further recs per Dr. Gold - no OR today Arron Toth PGY1
[2017-02-28] MEDS ORDERED: Mineral Oil Enema 135 ml PR ONE (09:00)
[2017-02-28] MEDS: Enoxaparin 40 mg Syringe SC SCH (09:09)
[2017-02-28] MEDS ORDERED: Dextrose 50% SYRINGE Inj (50 ml) IV ONE (11:45)
--- NOTE | 2017-02-28 12:06 | CP.PCM.PN ---
Subjective - Date & Time of Evaluation Date of Evaluation: 02/28/17 Time of Evaluation: 12:00 - Subjective Subjective: Pt seen and examined today, less abdominal pain, no BM , + flatus after enema , denies any chest pain sob, fever, chills, N/V a febrile Objective - Vital Signs/Intake and Output Vital Signs (last 24 hours): Temp Pulse Resp BP Pulse Ox 97.9 F 87 20 108/73 96 02/28/17 08:38 02/28/17 08:38 02/28/17 08:38 02/28/17 08:38 02/28/17 11:56 Intake and Output: 02/28/17 02/28/17 06:59 18:59 Intake Total 1000 Balance 1000 - Medications Medications: Current Medications Docusate Sodium (Colace) 100 mg PO BID [facility] Last Admin: 02/27/17 09:38 Dose: 100 mg Enoxaparin Sodium (Lovenox) 40 mg SC DAILY [facility] Last Admin: 02/28/17 09:09 Dose: 40 mg Fentanyl (Duragesic) 1 patch TD Q72H [facility] Last Admin: 02/26/17 20:10 Dose: 1 patch Ceftriaxone Sodium 1 gm/ (Sodium Chloride) 100 mls @ 100 mls/hr IVPB DAILY [facility] Last Admin: 02/28/17 09:09 Dose: 100 mls/hr Dextrose/Sodium Chloride (Dextrose 5%/0.9% Ns 1000 Ml) 1,000 mls @ 50 mls/hr IV .Q20H [facility] Last Admin: 02/27/17 16:53 Dose: 50 mls/hr Insulin Human Regular (Novolin R) 0 unit SC [facility] PRN Reason: Protocol Last Admin: 02/28/17 11:41 Dose: Not Given Lisinopril (Zestril) 10 mg PO DAILY [facility] Last Admin: 02/27/17 09:39 Dose: Not Given Morphine Sulfate (Morphine) 2 mg IVP Q4 PRN PRN Reason: Pain, moderate (4-7) Last Admin: 02/27/17 05:50 Dose: 2 mg Ondansetron HCl (Zofran Inj) 4 mg IVP Q6 PRN PRN Reason: Nausea/Vomiting Last Admin: 02/27/17 12:37 Dose: 4 mg Pantoprazole Sodium (Protonix Inj) 40 mg IVP DAILY [facility] Last Admin: 02/28/17 09:09 Dose: 40 mg Sennosides (Senokot Tab) 8.6 mg PO BID [facility] Last Admin: 02/27/17 09:38 Dose: 8.6 mg - Labs Labs: 02/28/17 07:55 02/27/17 07:00 PT 11.5 SECONDS (9.7-12.2) 02/24/17 11:37 INR 1.0 02/24/17 11:37 APTT 35 SECONDS (21-34) H 02/24/17 11:37 - Constitutional Appears: No Acute Distress, Cachectic, Chronically Ill - Head Exam Head Exam: ATRAUMATIC, NORMAL INSPECTION, NORMOCEPHALIC - Eye Exam Eye Exam: Conjunctival injection (pale), PERRL - ENT Exam ENT Exam: Mucous Membranes Moist - Neck Exam Neck Exam: Full ROM, Normal Inspection - Respiratory Exam Respiratory Exam: Clear to Ausculation Bilateral, NORMAL BREATHING PATTERN - Cardiovascular Exam Cardiovascular Exam: REGULAR RHYTHM, +S1, +S2 - GI/Abdominal Exam GI & Abdominal Exam: Distended, Firm, Tenderness, Hypoactive Bowel Sounds - Extremities Exam Extremities Exam: Full ROM - Neurological Exam Neurological Exam: Alert, Awake, CN II-XII Intact, Oriented x3 - Skin Skin Exam: Dry, Intact, Warm Assessment and Plan (1) Ascites Assessment & Plan: s/p paracentesis Status: Acute (2) Pancreatic cancer Status: Chronic (3) Abdominal pain Status: Acute (4) Dehydration Assessment & Plan: IVF 250ml/hr Status: Acute - Assessment and Plan (Free Text) Assessment: A/P abdominal [id number] developing ileus is favored over distal small bowel obstruction developing Dr. Gold on consult
[2017-02-28 12:37] LABS: EOSINOPHIL 1 % (0-4); MYELOCYTE 1 % (0-0); NEUTROPHIL 64 % (50-75); TOTAL CELLS COUNTED 100
[2017-02-28] MEDS: Dextrose 5%/0.9% NS 1,000 ML IV SCH ×2 (12:45→16:25)
--- NOTE | 2017-02-28 18:31 | PCM.RRT ---
<Rod Au - Last Filed: 02/28/17 18:53> STUDENT SUCCESS COUNSELOR Nurses Assessment - Situation STUDENT SUCCESS COUNSELOR Responder Arrival Time: 18:16 Location: 369A Room Number: [id number] STUDENT SUCCESS COUNSELOR Called By: RN - IV IV Inserted during STUDENT SUCCESS COUNSELOR?: No - Respiratory Received Nebulizer Treatments: No Was the Patient Ventilated with Bag/Mask 100% O2?: No Secretions Suctioned?: No Was the Patient Intubated?: No Was the Patient Placed on a Ventilator?: No - Diagnostic Test Ordered EKG: No Chest X-Ray: No CT Scan: No CPR started during STUDENT SUCCESS COUNSELOR?: No - Obey Coma Scale Coma Scale Eye Opening: Spontaneous Coma Scale Motor: Obeys Commands Movement Coma Scale Verbal: Oriented Coma Scale Total: 15 - Time STUDENT SUCCESS COUNSELOR Ended Time STUDENT SUCCESS COUNSELOR Ended: 18:29 - Recommendations 5) STUDENT SUCCESS COUNSELOR Level of Care Recommendations: Remain in current setting I.Reason for STUDENT SUCCESS COUNSELOR - A) Acute Change in Patient: Subjective: Patient was given an enema and then went up to go to the bathroom, however, she had an IV connected and was pulled back into bed. She paased urine as she could not get to the bathroom on time. Patient got up again and fell to the ground landing on her left hip but did not hit her head. She did not lose conciseness and was able to ambulate immediately without pain. - Constitutional Appears: Non-toxic, No Acute Distress - Head Head Exam: ATRAUMATIC, NORMAL INSPECTION, NORMOCEPHALIC - Eyes Eye Exam: EOMI - Respiratory Exam Respiratory Exam: Clear to Ausculation Bilateral, NORMAL BREATHING PATTERN - Cardiovascular Exam Cardiovascular Exam: REGULAR RHYTHM - Neurological Exam Neurological Exam: Alert, Awake, Oriented x3 - Extremities Exam Extremities Exam: Full ROM. 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 This was called a "code star" by nursing staff. House doctor, Resident Roe responded to code star.
[2017-02-28] MEDS: POLYETHYLENE GLYCOL 3350 17 GM/Dose PACKET PO SCH (18:45)
[2017-03-01] MEDS: (Novolin R) Insulin Human Regular 100 units/ml vial SC SCH ×4 (07:26→21:58)
[2017-03-01 08:41] LABS: BASO % 0.2 % (0.0-2.0); EOS # 0.1 K/uL (0.0-0.7); EOS % 1.2 % (0.0-4.0); HEMATOCRIT 33.8 % (34.0-47.0); LYMPH # 1.8 K/uL (1.0-4.3); LYMPH % 17.4 % (20.0-40.0); MEAN CELL VOLUME 83.8 fL (81.0-99.0); MEAN CORPUSCULAR HEMOGLOBIN 26.9 pg (27.0-31.0); MEAN CORPUSCULAR HGB CONC 32.1 g/dL (33.0-37.0); MEAN PLATELET VOLUME 8.9 fL (7.2-11.7); MONO # 1.1 K/uL (0.0-0.8); MONO % 10.1 % (0.0-10.0); RED CELL DISTRIBUTION WIDTH 17.4 % (11.5-14.5); WHITE BLOOD COUNT 10.5 K/uL (4.8-10.8)
[2017-03-01] MEDS: POLYETHYLENE GLYCOL 3350 17 GM/Dose PACKET PO SCH ×2 (09:27→17:25)
[2017-03-01] MEDS: Dextrose 5%/0.9% NS 1,000 ML IV SCH ×2 (09:27→16:40)
[2017-03-01] MEDS: Enoxaparin 40 mg Syringe SC SCH (09:28)
--- NOTE | 2017-03-01 11:21 | CP.PCM.PN ---
Subjective - Date & Time of Evaluation Date of Evaluation: 03/01/17 Time of Evaluation: 06:45 - Subjective Subjective: General Surgery- Dr. Gold Pt S&E at bedside this AM. Pt had a solid BM overnight, and one this AM. Pt states abdominal pain is significantly better. Getting warm water enema q 6hrs + flatus. Denies CP/SOB N/V. Objective - Vital Signs/Intake and Output Vital Signs (last 24 hours): Temp Pulse Resp BP Pulse Ox 98.0 F 90 20 104/64 99 03/01/17 08:10 03/01/17 08:10 03/01/17 08:10 03/01/17 08:10 03/01/17 08:10 Intake and Output: 03/01/17 03/01/17 06:59 18:59 Intake Total 1000 Balance 1000 - Medications Medications: Current Medications Docusate Sodium (Colace) 100 mg PO BID [facility] Last Admin: 02/27/17 09:38 Dose: 100 mg Enoxaparin Sodium (Lovenox) 40 mg SC DAILY [facility] Last Admin: 03/01/17 09:28 Dose: 40 mg Fentanyl (Duragesic) 1 patch TD Q72H [facility] Last Admin: 02/26/17 20:10 Dose: 1 patch Ceftriaxone Sodium 1 gm/ (Sodium Chloride) 100 mls @ 100 mls/hr IVPB DAILY [facility] Last Admin: 03/01/17 09:28 Dose: 100 mls/hr Dextrose/Sodium Chloride (Dextrose 5%/0.9% Ns 1000 Ml) 1,000 mls @ 50 mls/hr IV .Q20H [facility] Last Admin: 03/01/17 09:27 Dose: Not Given Insulin Human Regular (Novolin R) 0 unit SC [facility] PRN Reason: Protocol Last Admin: 03/01/17 07:26 Dose: Not Given Lisinopril (Zestril) 10 mg PO DAILY [facility] Last Admin: 02/27/17 09:39 Dose: Not Given Morphine Sulfate (Morphine) 2 mg IVP Q4 PRN PRN Reason: Pain, moderate (4-7) Last Admin: 02/27/17 05:50 Dose: 2 mg Ondansetron HCl (Zofran Inj) 4 mg IVP Q6 PRN PRN Reason: Nausea/Vomiting Last Admin: 02/27/17 12:37 Dose: 4 mg Pantoprazole Sodium (Protonix Inj) 40 mg IVP DAILY [facility] Last Admin: 03/01/17 09:27 Dose: 40 mg Polyethylene Glycol (Miralax) 17 gm PO BID [facility] Last Admin: 03/01/17 09:27 Dose: 17 gm Sennosides (Senokot Tab) 8.6 mg PO BID [facility] Last Admin: 02/27/17 09:38 Dose: 8.6 mg - Labs Labs: 03/01/17 08:18 02/27/17 07:00 PT 11.5 SECONDS (9.7-12.2) 02/24/17 11:37 INR 1.0 02/24/17 11:37 APTT 35 SECONDS (21-34) H 02/24/17 11:37 - Constitutional Appears: No Acute Distress - Eye Exam Eye Exam: EOMI - ENT Exam ENT Exam: Mucous Membranes Moist - Respiratory Exam Respiratory Exam: absent: Accessory Muscle Use, Rales, Rhonchi - Cardiovascular Exam Cardiovascular Exam: REGULAR RHYTHM, +S1, +S2 - GI/Abdominal Exam GI & Abdominal Exam: Soft, Normal Bowel Sounds. absent: Distended, Tenderness Assessment and Plan - Assessment and Plan (Free Text) Assessment: 66F hx of Pancreatic Ca, w/ SBO Plan: - c/w warm water q6hr until large BM is achieved - advance diet as tolerated - f/u labs - f/u abd xray - no acute surgical intervention at this time - further recs per Dr. Alla Toth PGY1
--- NOTE | 2017-03-01 13:03 | RAD ---
HISTORY: comparison abd pain COMPARISON: Abdomen obstruction series 830 17 FINDINGS: BOWEL: There is persistent gas distending central small bowel loops in the interval with gas again seen at the distal rectum. Gas remains limited in apparent large-bowel segments and persistent ileus or even partial or intermittent distal small bowel obstruction would be difficult to fully exclude at this time. Air-fluid levels are again identified in delete the erect views of the abdomen and continued clinical correlation is advised. Overall pattern of bowel distention does not appear further increased compared to the prior radiograph series. No free intraperitoneal gas. Nonspecific density is again seen the left flank medially which may be extrinsic to the abdomen. BONES: Normal. OTHER FINDINGS: None. IMPRESSION: Persistent but stable small bowel gaseous dilatation and air-fluid level formation in a pattern suspicious for ileus or intermittent/ partial distal small bowel obstruction. Continued clinical and imaging monitoring is advised.
--- NOTE | 2017-03-01 19:53 | CP.PCM.PN ---
Subjective - Date & Time of Evaluation Date of Evaluation: 02/28/17 - Subjective Subjective: c/o abdominal pain, distension, no BM, no fever, no short of breath Objective - Vital Signs/Intake and Output Vital Signs (last 24 hours): Temp Pulse Resp BP Pulse Ox 97.5 F L 104 H 20 95/65 L 98 03/01/17 15:00 03/01/17 15:00 03/01/17 15:00 03/01/17 15:00 03/01/17 15:00 Intake and Output: 03/01/17 03/02/17 18:59 06:59 Intake Total 550 Balance 550 - Medications Medications: Current Medications Docusate Sodium (Colace) 100 mg PO BID [facility] Last Admin: 02/27/17 09:38 Dose: 100 mg Enoxaparin Sodium (Lovenox) 40 mg SC DAILY [facility] Last Admin: 03/01/17 09:28 Dose: 40 mg Fentanyl (Duragesic) 1 patch TD Q72H [facility] Last Admin: 02/26/17 20:10 Dose: 1 patch Ceftriaxone Sodium 1 gm/ (Sodium Chloride) 100 mls @ 100 mls/hr IVPB DAILY [facility] Last Admin: 03/01/17 09:28 Dose: 100 mls/hr Dextrose/Sodium Chloride (Dextrose 5%/0.9% Ns 1000 Ml) 1,000 mls @ 30 mls/hr IV .Q24H [facility] Last Admin: 03/01/17 16:40 Dose: 30 mls/hr Insulin Human Regular (Novolin R) 0 unit SC ACHS [facility] PRN Reason: Protocol Last Admin: 03/01/17 17:28 Dose: 2 unit Lisinopril (Zestril) 10 mg PO DAILY [facility] Last Admin: 02/27/17 09:39 Dose: Not Given Morphine Sulfate (Morphine) 2 mg IVP Q4 PRN PRN Reason: Pain, moderate (4-7) Last Admin: 02/27/17 05:50 Dose: 2 mg Ondansetron HCl (Zofran Inj) 4 mg IVP Q6 PRN PRN Reason: Nausea/Vomiting Last Admin: 02/27/17 12:37 Dose: 4 mg Pantoprazole Sodium (Protonix Inj) 40 mg IVP DAILY [facility] Last Admin: 03/01/17 09:27 Dose: 40 mg Polyethylene Glycol (Miralax) 17 gm PO BID [facility] Last Admin: 03/01/17 17:25 Dose: 17 gm Sennosides (Senokot Tab) 8.6 mg PO BID [facility] Last Admin: 02/27/17 09:38 Dose: 8.6 mg - Labs Labs: 03/01/17 08:18 02/27/17 07:00 PT 11.5 SECONDS (9.7-12.2) 02/24/17 11:37 INR 1.0 02/24/17 11:37 APTT 35 SECONDS (21-34) H 02/24/17 11:37 - Constitutional Appears: Non-toxic, No Acute Distress - Head Exam Head Exam: ATRAUMATIC, NORMAL INSPECTION, NORMOCEPHALIC - Eye Exam Eye Exam: EOMI, Normal appearance - ENT Exam ENT Exam: Mucous Membranes Moist, Normal Exam - Neck Exam Neck Exam: Normal Inspection - Respiratory Exam Respiratory Exam: Clear to Ausculation Bilateral, NORMAL BREATHING PATTERN - Cardiovascular Exam Cardiovascular Exam: REGULAR RHYTHM, +S1, +S2 - GI/Abdominal Exam GI & Abdominal Exam: Distended, Firm, Mass - Rectal Exam Rectal Exam: NORMAL INSPECTION - Extremities Exam Extremities Exam: Normal Capillary Refill, Normal Inspection - Back Exam Back Exam: NORMAL INSPECTION - Psychiatric Exam Psychiatric exam: Flat Affect - Skin Skin Exam: Intact Assessment and Plan (1) Malignant ascites Assessment & Plan: s/p paracentesis Status: Acute (2) Pancreatic cancer Status: Chronic (3) Malnutrition Status: Chronic
--- NOTE | 2017-03-01 19:55 | CP.PCM.PN ---
Subjective - Date & Time of Evaluation Date of Evaluation: 03/01/17 - Subjective Subjective: distension, no fever, no sob, pain, in abdomen, Objective - Vital Signs/Intake and Output Vital Signs (last 24 hours): Temp Pulse Resp BP Pulse Ox 97.5 F L 104 H 20 95/65 L 98 03/01/17 15:00 03/01/17 15:00 03/01/17 15:00 03/01/17 15:00 03/01/17 15:00 Intake and Output: 03/01/17 03/02/17 18:59 06:59 Intake Total 550 Balance 550 - Medications Medications: Current Medications Docusate Sodium (Colace) 100 mg PO BID [facility] Last Admin: 02/27/17 09:38 Dose: 100 mg Enoxaparin Sodium (Lovenox) 40 mg SC DAILY [facility] Last Admin: 03/01/17 09:28 Dose: 40 mg Fentanyl (Duragesic) 1 patch TD Q72H [facility] Last Admin: 02/26/17 20:10 Dose: 1 patch Ceftriaxone Sodium 1 gm/ (Sodium Chloride) 100 mls @ 100 mls/hr IVPB DAILY [facility] Last Admin: 03/01/17 09:28 Dose: 100 mls/hr Dextrose/Sodium Chloride (Dextrose 5%/0.9% Ns 1000 Ml) 1,000 mls @ 30 mls/hr IV .Q24H [facility] Last Admin: 03/01/17 16:40 Dose: 30 mls/hr Insulin Human Regular (Novolin R) 0 unit SC ACHS [facility] PRN Reason: Protocol Last Admin: 03/01/17 17:28 Dose: 2 unit Lisinopril (Zestril) 10 mg PO DAILY [facility] Last Admin: 02/27/17 09:39 Dose: Not Given Morphine Sulfate (Morphine) 2 mg IVP Q4 PRN PRN Reason: Pain, moderate (4-7) Last Admin: 02/27/17 05:50 Dose: 2 mg Ondansetron HCl (Zofran Inj) 4 mg IVP Q6 PRN PRN Reason: Nausea/Vomiting Last Admin: 02/27/17 12:37 Dose: 4 mg Pantoprazole Sodium (Protonix Inj) 40 mg IVP DAILY [facility] Last Admin: 03/01/17 09:27 Dose: 40 mg Polyethylene Glycol (Miralax) 17 gm PO BID [facility] Last Admin: 03/01/17 17:25 Dose: 17 gm Sennosides (Senokot Tab) 8.6 mg PO BID [facility] Last Admin: 02/27/17 09:38 Dose: 8.6 mg - Labs Labs: 03/01/17 08:18 02/27/17 07:00 PT 11.5 SECONDS (9.7-12.2) 02/24/17 11:37 INR 1.0 02/24/17 11:37 APTT 35 SECONDS (21-34) H 02/24/17 11:37 - Constitutional Appears: Non-toxic, No Acute Distress - Head Exam Head Exam: ATRAUMATIC, NORMAL INSPECTION, NORMOCEPHALIC - Eye Exam Eye Exam: EOMI, Normal appearance Pupil Exam: NORMAL ACCOMODATION - ENT Exam ENT Exam: Mucous Membranes Moist, Normal Exam - Neck Exam Neck Exam: Normal Inspection - Respiratory Exam Respiratory Exam: Clear to Ausculation Bilateral, NORMAL BREATHING PATTERN - Cardiovascular Exam Cardiovascular Exam: REGULAR RHYTHM, +S1, +S2 - GI/Abdominal Exam GI & Abdominal Exam: Soft, Mass - Rectal Exam Rectal Exam: NORMAL INSPECTION - Neurological Exam Neurological Exam: Abnormal Gait, Alert, Awake, CN II-XII Intact, Oriented x3 Neuro motor strength exam: Left Upper Extremity: 5, Right Upper Extremity: 5, Left Lower Extremity: 5, Right Lower Extremity: 5 - Psychiatric Exam Psychiatric exam: Flat Affect - Skin Skin Exam: Intact Assessment and Plan (1) Malignant ascites Status: Acute (2) Pancreatic cancer Status: Chronic (3) Malnutrition Status: Chronic
--- NOTE | 2017-03-01 21:12 | CP.PCM.PN ---
Subjective - Date & Time of Evaluation Date of Evaluation: 02/28/17 Time of Evaluation: 11:00 - Subjective Subjective: Has abdominal pain, constipated Objective - Vital Signs/Intake and Output Vital Signs (last 24 hours): Temp Pulse Resp BP Pulse Ox 97.5 F L 104 H 20 95/65 L 98 03/01/17 15:00 03/01/17 15:00 03/01/17 15:00 03/01/17 15:00 03/01/17 15:00 Intake and Output: 03/01/17 03/02/17 18:59 06:59 Intake Total 550 Balance 550 - Medications Medications: Current Medications Docusate Sodium (Colace) 100 mg PO BID [facility] Last Admin: 02/27/17 09:38 Dose: 100 mg Enoxaparin Sodium (Lovenox) 40 mg SC DAILY [facility] Last Admin: 03/01/17 09:28 Dose: 40 mg Fentanyl (Duragesic) 1 patch TD Q72H [facility] Last Admin: 03/01/17 20:00 Dose: 1 patch Ceftriaxone Sodium 1 gm/ (Sodium Chloride) 100 mls @ 100 mls/hr IVPB DAILY [facility] Last Admin: 03/01/17 09:28 Dose: 100 mls/hr Dextrose/Sodium Chloride (Dextrose 5%/0.9% Ns 1000 Ml) 1,000 mls @ 30 mls/hr IV .Q24H [facility] Last Admin: 03/01/17 16:40 Dose: 30 mls/hr Insulin Human Regular (Novolin R) 0 unit SC ACHS [facility] PRN Reason: Protocol Last Admin: 03/01/17 17:28 Dose: 2 unit Lisinopril (Zestril) 10 mg PO DAILY [facility] Last Admin: 02/27/17 09:39 Dose: Not Given Morphine Sulfate (Morphine) 2 mg IVP Q4 PRN PRN Reason: Pain, moderate (4-7) Last Admin: 03/01/17 21:07 Dose: 2 mg Ondansetron HCl (Zofran Inj) 4 mg IVP Q6 PRN PRN Reason: Nausea/Vomiting Last Admin: 03/01/17 21:04 Dose: 4 mg Pantoprazole Sodium (Protonix Inj) 40 mg IVP DAILY [facility] Last Admin: 03/01/17 09:27 Dose: 40 mg Polyethylene Glycol (Miralax) 17 gm PO BID [facility] Last Admin: 03/01/17 17:25 Dose: 17 gm Sennosides (Senokot Tab) 8.6 mg PO BID [facility] Last Admin: 02/27/17 09:38 Dose: 8.6 mg - Labs Labs: 03/01/17 08:18 02/27/17 07:00 PT 11.5 SECONDS (9.7-12.2) 02/24/17 11:37 INR 1.0 02/24/17 11:37 APTT 35 SECONDS (21-34) H 02/24/17 11:37 - Head Exam Head Exam: ATRAUMATIC - Eye Exam Eye Exam: Normal appearance - ENT Exam ENT Exam: Mucous Membranes Dry - Respiratory Exam Respiratory Exam: NORMAL BREATHING PATTERN - Cardiovascular Exam Cardiovascular Exam: +S1, +S2 - GI/Abdominal Exam GI & Abdominal Exam: Normal Bowel Sounds - Extremities Exam Extremities Exam: Pedal Edema Assessment and Plan (1) 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
--- NOTE | 2017-03-01 21:13 | CP.PCM.PN ---
Subjective - Date & Time of Evaluation Date of Evaluation: 03/01/17 Time of Evaluation: 20:00 - Subjective Subjective: Has abdominal discomfort and nausea Objective - Vital Signs/Intake and Output Vital Signs (last 24 hours): Temp Pulse Resp BP Pulse Ox 97.5 F L 104 H 20 95/65 L 98 03/01/17 15:00 03/01/17 15:00 03/01/17 15:00 03/01/17 15:00 03/01/17 15:00 Intake and Output: 03/01/17 03/02/17 18:59 06:59 Intake Total 550 Balance 550 - Medications Medications: Current Medications Docusate Sodium (Colace) 100 mg PO BID [facility] Last Admin: 02/27/17 09:38 Dose: 100 mg Enoxaparin Sodium (Lovenox) 40 mg SC DAILY [facility] Last Admin: 03/01/17 09:28 Dose: 40 mg Fentanyl (Duragesic) 1 patch TD Q72H [facility] Last Admin: 03/01/17 20:00 Dose: 1 patch Ceftriaxone Sodium 1 gm/ (Sodium Chloride) 100 mls @ 100 mls/hr IVPB DAILY [facility] Last Admin: 03/01/17 09:28 Dose: 100 mls/hr Dextrose/Sodium Chloride (Dextrose 5%/0.9% Ns 1000 Ml) 1,000 mls @ 30 mls/hr IV .Q24H [facility] Last Admin: 03/01/17 16:40 Dose: 30 mls/hr Insulin Human Regular (Novolin R) 0 unit SC ACHS [facility] PRN Reason: Protocol Last Admin: 03/01/17 17:28 Dose: 2 unit Lisinopril (Zestril) 10 mg PO DAILY [facility] Last Admin: 02/27/17 09:39 Dose: Not Given Morphine Sulfate (Morphine) 2 mg IVP Q4 PRN PRN Reason: Pain, moderate (4-7) Last Admin: 03/01/17 21:07 Dose: 2 mg Ondansetron HCl (Zofran Inj) 4 mg IVP Q6 PRN PRN Reason: Nausea/Vomiting Last Admin: 03/01/17 21:04 Dose: 4 mg Pantoprazole Sodium (Protonix Inj) 40 mg IVP DAILY [facility] Last Admin: 03/01/17 09:27 Dose: 40 mg Polyethylene Glycol (Miralax) 17 gm PO BID [facility] Last Admin: 03/01/17 17:25 Dose: 17 gm Sennosides (Senokot Tab) 8.6 mg PO BID [facility] Last Admin: 02/27/17 09:38 Dose: 8.6 mg - Labs Labs: 03/01/17 08:18 02/27/17 07:00 PT 11.5 SECONDS (9.7-12.2) 02/24/17 11:37 INR 1.0 02/24/17 11:37 APTT 35 SECONDS (21-34) H 02/24/17 11:37 - Head Exam Head Exam: ATRAUMATIC - Eye Exam Eye Exam: Normal appearance - ENT Exam ENT Exam: Mucous Membranes Dry - Respiratory Exam Respiratory Exam: NORMAL BREATHING PATTERN - Cardiovascular Exam Cardiovascular Exam: +S1, +S2 - GI/Abdominal Exam GI & Abdominal Exam: Normal Bowel Sounds - Extremities Exam Extremities Exam: Pedal Edema Assessment and Plan (1) Pancreatic cancer Assessment & Plan: stage IV peritoneal carcinomatosis currently off chemotherapy supportive and palliative care Status: Chronic
[2017-03-02] MEDS: Dextrose 5%/0.9% NS 1,000 ML IV SCH ×2 (00:30→16:30)
[2017-03-02] MEDS: (Novolin R) Insulin Human Regular 100 units/ml vial SC SCH ×4 (07:30→21:51)
[2017-03-02] MEDS ORDERED: Peg-Electrolyte Oral Soln 4L (Golytely) PO ONE (08:13)
--- NOTE | 2017-03-02 08:17 | CP.PCM.PN ---
Subjective - Date & Time of Evaluation Date of Evaluation: 03/02/17 Time of Evaluation: 08:14 - Subjective Subjective: Gen Sx: Dr Gold Pt S&E. NAEO. Reports less pain in the abdomen. Has not yet passed flatus. Enemas unsuccessful. Denies N/v. Not tolerating any liquid intake Objective - Vital Signs/Intake and Output Vital Signs (last 24 hours): Temp Pulse Resp BP Pulse Ox 97.5 F L 87 20 90/54 L 98 03/02/17 00:00 03/02/17 00:00 03/02/17 00:00 03/02/17 00:00 03/02/17 00:00 Intake and Output: 03/02/17 03/02/17 06:59 18:59 Intake Total 1540 Balance 1540 - Medications Medications: Current Medications Docusate Sodium (Colace) 100 mg PO BID [facility] Last Admin: 02/27/17 09:38 Dose: 100 mg Enoxaparin Sodium (Lovenox) 40 mg SC DAILY [facility] Last Admin: 03/01/17 09:28 Dose: 40 mg Fentanyl (Duragesic) 1 patch TD Q72H [facility] Last Admin: 03/01/17 20:00 Dose: 1 patch Ceftriaxone Sodium 1 gm/ (Sodium Chloride) 100 mls @ 100 mls/hr IVPB DAILY [facility] Last Admin: 03/01/17 09:28 Dose: 100 mls/hr Dextrose/Sodium Chloride (Dextrose 5%/0.9% Ns 1000 Ml) 1,000 mls @ 30 mls/hr IV .Q24H [facility] Last Admin: 03/02/17 00:30 Dose: 30 mls/hr Insulin Human Regular (Novolin R) 0 unit SC [facility] PRN Reason: Protocol Last Admin: 03/01/17 21:58 Dose: Not Given Lisinopril (Zestril) 10 mg PO DAILY [facility] Last Admin: 02/27/17 09:39 Dose: Not Given Morphine Sulfate (Morphine) 2 mg IVP Q4 PRN PRN Reason: Pain, moderate (4-7) Last Admin: 03/01/17 21:07 Dose: 2 mg Ondansetron HCl (Zofran Inj) 4 mg IVP Q6 PRN PRN Reason: Nausea/Vomiting Last Admin: 03/01/17 21:04 Dose: 4 mg Pantoprazole Sodium (Protonix Inj) 40 mg IVP DAILY [facility] Last Admin: 03/01/17 09:27 Dose: 40 mg Polyethylene Glycol (Miralax) 17 gm PO BID [facility] Last Admin: 03/01/17 17:25 Dose: 17 gm Polyethylene Glycol/Electrolytes (Golytely) 4,000 ml PO ONCE ONE Stop: 03/02/17 08:14 Sennosides (Senokot Tab) 8.6 mg PO BID [facility] Last Admin: 02/27/17 09:38 Dose: 8.6 mg - Labs Labs: 03/01/17 08:18 02/27/17 07:00 PT 11.5 SECONDS (9.7-12.2) 02/24/17 11:37 INR 1.0 02/24/17 11:37 APTT 35 SECONDS (21-34) H 02/24/17 11:37 - Constitutional Appears: Non-toxic - Respiratory Exam Respiratory Exam: absent: Accessory Muscle Use, Respiratory Distress - GI/Abdominal Exam GI & Abdominal Exam: Distended, Firm. absent: Guarding, Rigid, Soft, Tenderness Additional comments: hard impacted stool throughout abdomen - Rectal Exam Rectal Exam: Deferred - Neurological Exam Neurological Exam: Alert, Awake, Oriented x3 - Psychiatric Exam Psychiatric exam: Normal Affect, Normal Mood - Skin Skin Exam: Normal Color, Warm Assessment and Plan - Assessment and Plan (Free Text) Assessment: 66F with hx of pancreatic cancer; admitted for chronic constipation, likely OIC Plan: minimize narcotic use will hold enemas and other laxatives attempt at Go Lytely. Pt to take sips as tolerated over the course of the day will consider disimpaction if no results will d/w Dr Alla Wayne, PGY3
[2017-03-02 08:22] LABS: HEMATOCRIT 33.1 % (34.0-47.0); MEAN CELL VOLUME 84.2 fL (81.0-99.0); MEAN CORPUSCULAR HGB CONC 32.1 g/dL (33.0-37.0); MEAN PLATELET VOLUME 8.7 fL (7.2-11.7); RED CELL DISTRIBUTION WIDTH 17.5 % (11.5-14.5); WHITE BLOOD COUNT 9.4 K/uL (4.8-10.8)
[2017-03-02 08:45] LABS: BLOOD UREA NITROGEN 27 mg/dL (7-17); CALCIUM 8.1 mg/dl (8.6-10.4); CARBON DIOXIDE 20 mmol/L (22-30); CHLORIDE 105 mmol/L (98-107); GFR AFRICAN-AMERICAN > 60; GLUCOSE,RANDOM 107 mg/dL (65-105); POTASSIUM 4.3 mmol/L (3.6-5.2); SODIUM 133 mmol/L (132-148)
[2017-03-02] MEDS: Enoxaparin 40 mg Syringe SC SCH (09:22)
--- NOTE | 2017-03-02 22:59 | CP.PCM.PN ---
Subjective - Date & Time of Evaluation Date of Evaluation: 03/02/17 - Subjective Subjective: NO BM, NO SOB, ABDOMINAL PAIN IS LESS, NO FEVER, NO SOB Objective - Vital Signs/Intake and Output Vital Signs (last 24 hours): Temp Pulse Resp BP Pulse Ox 97.6 F 98 H 20 99/63 L 99 03/02/17 15:34 03/02/17 15:34 03/02/17 15:34 03/02/17 15:34 03/02/17 15:34 Intake and Output: 03/02/17 03/03/17 18:59 06:59 Intake Total 1500 Output Total 400 Balance 1100 - Medications Medications: Current Medications Docusate Sodium (Colace) 100 mg PO BID [facility] Last Admin: 02/27/17 09:38 Dose: 100 mg Enoxaparin Sodium (Lovenox) 40 mg SC DAILY [facility] Last Admin: 03/02/17 09:22 Dose: 40 mg Fentanyl (Duragesic) 1 patch TD Q72H [facility] Last Admin: 03/01/17 20:00 Dose: 1 patch Ceftriaxone Sodium 1 gm/ (Sodium Chloride) 100 mls @ 100 mls/hr IVPB DAILY [facility] Last Admin: 03/02/17 10:37 Dose: 100 mls/hr Dextrose/Sodium Chloride (Dextrose 5%/0.9% Ns 1000 Ml) 1,000 mls @ 30 mls/hr IV .Q24H [facility] Last Admin: 03/02/17 16:30 Dose: 30 mls/hr Insulin Human Regular (Novolin R) 0 unit SC ACHS [facility] PRN Reason: Protocol Last Admin: 03/02/17 21:51 Dose: Not Given Lisinopril (Zestril) 10 mg PO DAILY [facility] Last Admin: 02/27/17 09:39 Dose: Not Given Morphine Sulfate (Morphine) 2 mg IVP Q4 PRN PRN Reason: Pain, moderate (4-7) Last Admin: 03/01/17 21:07 Dose: 2 mg Ondansetron HCl (Zofran Inj) 4 mg IVP Q6 PRN PRN Reason: Nausea/Vomiting Last Admin: 03/02/17 09:16 Dose: 4 mg Pantoprazole Sodium (Protonix Inj) 40 mg IVP DAILY [facility] Last Admin: 03/02/17 09:22 Dose: 40 mg Polyethylene Glycol (Miralax) 17 gm PO BID [facility] Last Admin: 03/01/17 17:25 Dose: 17 gm Sennosides (Senokot Tab) 8.6 mg PO BID [facility] Last Admin: 02/27/17 09:38 Dose: 8.6 mg - Labs Labs: 03/02/17 08:05 03/02/17 08:05 PT 11.5 SECONDS (9.7-12.2) 02/24/17 11:37 INR 1.0 02/24/17 11:37 APTT 35 SECONDS (21-34) H 02/24/17 11:37 - Constitutional Appears: Non-toxic, No Acute Distress - Head Exam Head Exam: ATRAUMATIC, NORMAL INSPECTION, NORMOCEPHALIC - Eye Exam Eye Exam: EOMI, Normal appearance, PERRL Pupil Exam: NORMAL ACCOMODATION - ENT Exam ENT Exam: Mucous Membranes Moist, Normal Exam, Normal Oropharynx, TM's Normal Bilaterally - Neck Exam Neck Exam: Normal Inspection - Respiratory Exam Respiratory Exam: Clear to Ausculation Bilateral, NORMAL BREATHING PATTERN - Cardiovascular Exam Cardiovascular Exam: REGULAR RHYTHM, +S1, +S2 - GI/Abdominal Exam GI & Abdominal Exam: Soft, Mass, Normal Bowel Sounds - Rectal Exam Rectal Exam: NORMAL INSPECTION - Extremities Exam Extremities Exam: Full ROM, Normal Capillary Refill, Normal Inspection - Neurological Exam Neurological Exam: Abnormal Gait, Alert, Awake, CN II-XII Intact - Psychiatric Exam Psychiatric exam: Normal Mood - Skin Skin Exam: Intact Assessment and Plan (1) Malignant ascites Assessment & Plan: S/P PARACENTESIS Status: Acute (2) Pancreatic cancer Status: Chronic (3) Malnutrition Status: Chronic
--- NOTE | 2017-03-03 06:50 | CP.PCM.PN ---
Subjective - Date & Time of Evaluation Date of Evaluation: 03/03/17 Time of Evaluation: 06:48 - Subjective Subjective: Gen Sx: Dr Gold Pt S&E. NAEO. Given Go Lytely yesterday and tolerated ~3000cc. Still no BM. No flatus. Has been OOB and ambulating Objective - Vital Signs/Intake and Output Vital Signs (last 24 hours): Temp Pulse Resp BP Pulse Ox 98 F 84 20 99/62 L 98 03/03/17 06:00 03/03/17 06:00 03/03/17 06:00 03/03/17 06:00 03/03/17 06:00 Intake and Output: 03/02/17 03/03/17 18:59 06:59 Intake Total 2140 Output Total 400 Balance 1740 - Medications Medications: Current Medications Docusate Sodium (Colace) 100 mg PO BID [facility] Last Admin: 02/27/17 09:38 Dose: 100 mg Enoxaparin Sodium (Lovenox) 40 mg SC DAILY [facility] Last Admin: 03/02/17 09:22 Dose: 40 mg Fentanyl (Duragesic) 1 patch TD Q72H [facility] Last Admin: 03/01/17 20:00 Dose: 1 patch Ceftriaxone Sodium 1 gm/ (Sodium Chloride) 100 mls @ 100 mls/hr IVPB DAILY [facility] Last Admin: 03/02/17 10:37 Dose: 100 mls/hr Dextrose/Sodium Chloride (Dextrose 5%/0.9% Ns 1000 Ml) 1,000 mls @ 30 mls/hr IV .Q24H [facility] Last Admin: 03/02/17 16:30 Dose: 30 mls/hr Insulin Human Regular (Novolin R) 0 unit SC [facility] PRN Reason: Protocol Last Admin: 03/02/17 21:51 Dose: Not Given Lisinopril (Zestril) 10 mg PO DAILY [facility] Last Admin: 02/27/17 09:39 Dose: Not Given Morphine Sulfate (Morphine) 2 mg IVP Q4 PRN PRN Reason: Pain, moderate (4-7) Last Admin: 03/01/17 21:07 Dose: 2 mg Ondansetron HCl (Zofran Inj) 4 mg IVP Q6 PRN PRN Reason: Nausea/Vomiting Last Admin: 03/02/17 09:16 Dose: 4 mg Pantoprazole Sodium (Protonix Inj) 40 mg IVP DAILY [facility] Last Admin: 03/02/17 09:22 Dose: 40 mg Polyethylene Glycol (Miralax) 17 gm PO BID [facility] Last Admin: 03/01/17 17:25 Dose: 17 gm Sennosides (Senokot Tab) 8.6 mg PO BID [facility] Last Admin: 02/27/17 09:38 Dose: 8.6 mg - Labs Labs: 03/02/17 08:05 03/02/17 08:05 PT 11.5 SECONDS (9.7-12.2) 02/24/17 11:37 INR 1.0 02/24/17 11:37 APTT 35 SECONDS (21-34) H 02/24/17 11:37 - Constitutional Appears: Non-toxic, No Acute Distress - Respiratory Exam Respiratory Exam: absent: Accessory Muscle Use, Respiratory Distress - GI/Abdominal Exam GI & Abdominal Exam: Distended, Firm, Tenderness. absent: Guarding, Soft Additional comments: significantly impacted colon with palpable stool - Neurological Exam Neurological Exam: Alert, Awake, Oriented x3 Assessment and Plan - Assessment and Plan (Free Text) Assessment: 66F with hx of panc cancer now with constipation Plan: will cont to monitor today after dosing of Go Lytely if no BM by tomorrow will discuss manual disimpaction with attending NPO @ [place] will d/w Dr Alla Wayne, PGY3
[2017-03-03] MEDS: (Novolin R) Insulin Human Regular 100 units/ml vial SC SCH ×4 (08:19→21:50)
[2017-03-03] MEDS: Enoxaparin 40 mg Syringe SC SCH (10:02)
[2017-03-03] MEDS: Dextrose 5%/0.9% NS 1,000 ML IV SCH (17:22)
[2017-03-03] MEDS ORDERED: Iohexol 240 (50 ml) PO ONE (19:00)
[2017-03-03] MEDS ORDERED: Iodixanol 320 MG/ML 100 ML BOTTLE IV ONE (22:10)
[2017-03-04] MEDS: (Novolin R) Insulin Human Regular 100 units/ml vial SC SCH ×4 (07:22→21:43)
[2017-03-04] MEDS: Enoxaparin 40 mg Syringe SC SCH (10:47)
--- NOTE | 2017-03-04 10:52 | CP.PCM.PN ---
Subjective - Date & Time of Evaluation Date of Evaluation: 03/04/17 Time of Evaluation: 10:50 - Subjective Subjective: General Surgery - Dr. Gold pt S&E. FERNANDO. Pt underwent CT abd/pelvis yesterday. Today she states she had a small BM this morning. She is tolerating liquid diet as of yesterday. No N/V , F/C, SOb/Cp. Objective - Vital Signs/Intake and Output Vital Signs (last 24 hours): Temp Pulse Resp BP Pulse Ox 97.5 F L 85 20 96/65 L 100 03/04/17 07:28 03/04/17 07:28 03/04/17 07:28 03/04/17 07:28 03/04/17 07:28 Intake and Output: 03/04/17 03/04/17 06:59 18:59 Intake Total 240 Output Total 50 Balance 190 - Medications Medications: Current Medications Docusate Sodium (Colace) 100 mg PO BID [facility] Last Admin: 03/04/17 10:47 Dose: 100 mg Enoxaparin Sodium (Lovenox) 40 mg SC DAILY [facility] Last Admin: 03/04/17 10:47 Dose: 40 mg Fentanyl (Duragesic) 1 patch TD Q72H [facility] Last Admin: 03/01/17 20:00 Dose: 1 patch Ceftriaxone Sodium 1 gm/ (Sodium Chloride) 100 mls @ 100 mls/hr IVPB DAILY [facility] Last Admin: 03/04/17 10:47 Dose: 100 mls/hr Dextrose/Sodium Chloride (Dextrose 5%/0.9% Ns 1000 Ml) 1,000 mls @ 30 mls/hr IV .Q24H [facility] Last Admin: 03/03/17 17:22 Dose: Not Given Insulin Human Regular (Novolin R) 0 unit SC ACHS [facility] PRN Reason: Protocol Last Admin: 03/04/17 07:22 Dose: Not Given Lisinopril (Zestril) 10 mg PO DAILY [facility] Last Admin: 02/27/17 09:39 Dose: Not Given Morphine Sulfate (Morphine) 2 mg IVP Q4 PRN PRN Reason: Pain, moderate (4-7) Last Admin: 03/01/17 21:07 Dose: 2 mg Ondansetron HCl (Zofran Inj) 4 mg IVP Q6 PRN PRN Reason: Nausea/Vomiting Last Admin: 03/04/17 06:05 Dose: 4 mg Pantoprazole Sodium (Protonix Inj) 40 mg IVP DAILY [facility] Last Admin: 03/04/17 10:46 Dose: 40 mg Polyethylene Glycol (Miralax) 17 gm PO BID [facility] Last Admin: 03/01/17 17:25 Dose: 17 gm Sennosides (Senokot Tab) 8.6 mg PO BID [facility] Last Admin: 02/27/17 09:38 Dose: 8.6 mg - Labs Labs: 03/02/17 08:05 03/02/17 08:05 PT 11.5 SECONDS (9.7-12.2) 02/24/17 11:37 INR 1.0 02/24/17 11:37 APTT 35 SECONDS (21-34) H 02/24/17 11:37 - Constitutional Appears: No Acute Distress - Head Exam Head Exam: ATRAUMATIC, NORMAL INSPECTION, NORMOCEPHALIC - Respiratory Exam Respiratory Exam: NORMAL BREATHING PATTERN. absent: Respiratory Distress - GI/Abdominal Exam GI & Abdominal Exam: Distended, Soft, Tenderness (mild ttp diffusely). absent: Guarding, Rebound - Neurological Exam Neurological Exam: Alert, Oriented x3 - Skin Skin Exam: Dry, Intact Assessment and Plan - Assessment and Plan (Free Text) Assessment: 66F w. pancreatic ca, surgery consulted for constipation Plan: Pt having bowel function CT with no signs of ileus or obstruction Abd pain/Distension likely related to ascites No plan for surgical intervention Continue bowel regimen prn Liquid diet and advance slowly as tolerated Dw Dr Alla Farrar PGY3
--- NOTE | 2017-03-04 10:53 | CT ---
PROCEDURE: CT Abdomen and Pelvis 03/03/17 HISTORY: Impacted stool, severe constipation COMPARISON: CT scan of the abdomen and pelvis dated 03/03/2017. TECHNIQUE: Contiguous helical/transaxial images of the abdomen and pelvis performed following oral and intravenous injection of cc the 08/31/2019 contrast material. Given. Coronal and Sagittal reformats generated. Radiation dose: Total exam DLP = 282.53 mGy-cm. This CT exam was performed using one or more of the following dose reduction techniques: Automated exposure control, adjustment of the mA and/or kV according to patient size, and/or use of iterative reconstruction technique. FINDINGS: LOWER THORAX: Lung bases clear without infiltrate or effusion. . Re- demonstrated is a small calcified granuloma right medial lung base. Some minor subpleural scarring changes the posteromedial lung bases and middle lobe region. Heart size is within range of normal. No significant pericardial effusion. . Moderate size hiatal hernia with the dilatation of distal esophagus both of which contain contrast suggesting reflux. . . LIVER: Mild diffuse fatty hepatic infiltration. . Large amount of abdominal ascites appears to compress the liver particularly along its right lateral border exhibiting an angulated convex appearance. Small approximately 5 mm rounded low-attenuation focus along the anterior aspect left lobe liver unchanged. Portal appears opacified. . GALLBLADDER AND BILE DUCTS: Intraluminal radiolucent gallbladder calculi again noted. . PANCREAS: Pancreas appears atrophic and fatty replaced. No obvious pancreatic mass collection calcification. . SPLEEN: Spleen exhibits normal size and attenuation pattern without mass collection or calcification. Apparent occlusion of the splenic vein with the surrounding the varices and possible varices in the region of the gastrohepatic ligament. . ADRENALS: No adrenal lesions. KIDNEYS AND URETERS: Apparent poorly of contrast material within focally dilated lower pole left renal collecting system. No evidence of ureteral dilatation. BLADDER: Urinary bladder appears collapsed. REPRODUCTIVE: Apparent hysterectomy. APPENDIX: Appendix is not seen with any certainty on this exam. BOWEL: Evaluation of the bowel is somewhat limited due to incomplete opacification. Stomach is incompletely distended which presumably accounts thick-walled appearance. Gastritis or other of loops of small bowel present particularly the duodenum in the distal small bowel appears be with smaller in caliber;. Rule out ileus versus partial and or intermittent small bowel obstruction. Fluid is present throughout the colon. Radiographs in 12 hours could be performed to assess for passage of contrast material into the large bowel. Clinical correlation recommended. . PERITONEUM: Large amount of ascites again seen with questionable peritoneal thickening. ; the pelvis infection or malignant ascites scan not excluded. No gross free intraperitoneal air. Anasarca present. . LYMPH NODES: Unremarkable. No enlarged lymph nodes. VASCULATURE: No evidence of abdominal aortic or iliac artery aneurysm. BONES: No fracture or destructive lesion. . Re- demonstrated is a small round/elliptical shaped sclerotic lesion within the T11 segment. This could represent bone island or osteoma and appears stable from prior exam. The possibility of a sclerotic metastasis cannot be completely excluded. Mild multilevel degenerative spondylosis of the thoracic and lumbar spine. OTHER FINDINGS: None. IMPRESSION: Large amount of abdominal ascites with apparent peritoneal thickening thickening. Malignant ascites or superimposed infection not excluded. Clinical correlation recommended. Distention of the most proximal small bowel with what appears to represent decompressed distal ileum. Findings may represent ileus however partial and or intermittent or early small-bowel obstruction must be excluded. Recommend follow-up radiographs in 12 hours the to assess for passage of oral contrast material into the large bowel. . 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 Mild fatty hepatic infiltration with small low-attenuation focus left lobe liver unchanged. Radiolucent intraluminal gallbladder calculi. Dilatation of the left lower lobe renal collecting system nonspecific. No evidence of hydroureter. Urinary bladder is collapsed. Fetus is surgically absent. Anasarca. Moderate size hiatal hernia with dilatation of the distal esophagus that contains contrast likely due to reflux
[2017-03-04 12:06] LABS: BASO % 0.3 % (0.0-2.0); EOS % 0.4 % (0.0-4.0); HEMATOCRIT 31.8 % (34.0-47.0); LYMPH # 0.9 K/uL (1.0-4.3); LYMPH % 8.2 % (20.0-40.0); MEAN CORPUSCULAR HEMOGLOBIN 27.4 pg (27.0-31.0); MEAN PLATELET VOLUME 7.4 fL (7.2-11.7); MONO # 0.7 K/uL (0.0-0.8); MONO % 6.7 % (0.0-10.0); PLATELET COUNT 256 K/uL (130-400); RED CELL DISTRIBUTION WIDTH 17.5 % (11.5-14.5); WHITE BLOOD COUNT 10.5 K/uL (4.8-10.8)
[2017-03-04 12:17] LABS: BLOOD UREA NITROGEN 26 mg/dL (7-17); CALCIUM 8.1 mg/dl (8.6-10.4); CARBON DIOXIDE 19 mmol/L (22-30); CHLORIDE 101 mmol/L (98-107); GFR AFRICAN-AMERICAN > 60; GLUCOSE,RANDOM 144 mg/dL (65-105); SODIUM 131 mmol/L (132-148)
[2017-03-04 12:33] LABS: EOSINOPHIL 1 % (0-4); NEUTROPHIL 80 % (50-75); TOTAL CELLS COUNTED 100
--- NOTE | 2017-03-04 21:27 | CP.PCM.PN ---
Subjective - Date & Time of Evaluation Date of Evaluation: 03/04/17 Time of Evaluation: 18:40 - Subjective Subjective: Has nausea and abdominal pain. Objective - Vital Signs/Intake and Output Vital Signs (last 24 hours): Temp Pulse Resp BP Pulse Ox 98.1 F 102 H 20 99/61 L 100 03/04/17 16:00 03/04/17 16:00 03/04/17 16:00 03/04/17 16:00 03/04/17 16:00 - Medications Medications: Current Medications Docusate Sodium (Colace) 100 mg PO BID [facility] Last Admin: 03/04/17 17:56 Dose: 100 mg Fentanyl (Duragesic) 1 patch TD Q72H [facility] Last Admin: 03/01/17 20:00 Dose: 1 patch Insulin Human Regular (Novolin R) 0 unit SC ACHS [facility] PRN Reason: Protocol Last Admin: 03/04/17 16:30 Dose: 1 unit Lisinopril (Zestril) 10 mg PO DAILY [facility] Last Admin: 02/27/17 09:39 Dose: Not Given Morphine Sulfate (Morphine) 2 mg IVP Q4 PRN PRN Reason: Pain, moderate (4-7) Last Admin: 03/01/17 21:07 Dose: 2 mg Ondansetron HCl (Zofran Inj) 4 mg IVP Q6 PRN PRN Reason: Nausea/Vomiting Last Admin: 03/04/17 06:05 Dose: 4 mg Pantoprazole Sodium (Protonix Inj) 40 mg IVP DAILY [facility] Last Admin: 03/04/17 10:46 Dose: 40 mg Polyethylene Glycol (Miralax) 17 gm PO BID [facility] Last Admin: 03/01/17 17:25 Dose: 17 gm Sennosides (Senokot Tab) 8.6 mg PO BID [facility] Last Admin: 02/27/17 09:38 Dose: 8.6 mg - Labs Labs: 03/04/17 12:01 03/04/17 12:01 PT 11.5 SECONDS (9.7-12.2) 02/24/17 11:37 INR 1.0 02/24/17 11:37 APTT 35 SECONDS (21-34) H 02/24/17 11:37 - Head Exam Head Exam: ATRAUMATIC - Eye Exam Eye Exam: Normal appearance - ENT Exam ENT Exam: Mucous Membranes Dry - Respiratory Exam Respiratory Exam: NORMAL BREATHING PATTERN - Cardiovascular Exam Cardiovascular Exam: +S1, +S2 - GI/Abdominal Exam GI & Abdominal Exam: Normal Bowel Sounds Assessment and Plan (1) 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
--- NOTE | 2017-03-04 23:21 | CP.PCM.PN ---
Subjective - Date & Time of Evaluation Date of Evaluation: 03/03/17 - Subjective Subjective: on and off small bm, NO FEVER, NO SOB, ABDOMINAL PAIN, NO FEVER Objective - Vital Signs/Intake and Output Vital Signs (last 24 hours): Temp Pulse Resp BP Pulse Ox 98.1 F 102 H 20 99/61 L 100 03/04/17 16:00 03/04/17 16:00 03/04/17 16:00 03/04/17 16:00 03/04/17 16:00 - Medications Medications: Current Medications Docusate Sodium (Colace) 100 mg PO BID [facility] Last Admin: 03/04/17 17:56 Dose: 100 mg Fentanyl (Duragesic) 1 patch TD Q72H [facility] Last Admin: 03/04/17 20:00 Dose: 1 patch Insulin Human Regular (Novolin R) 0 unit SC ACHS [facility] PRN Reason: Protocol Last Admin: 03/04/17 21:43 Dose: Not Given Lisinopril (Zestril) 10 mg PO DAILY [facility] Last Admin: 02/27/17 09:39 Dose: Not Given Morphine Sulfate (Morphine) 2 mg IVP Q4 PRN PRN Reason: Pain, moderate (4-7) Last Admin: 03/01/17 21:07 Dose: 2 mg Ondansetron HCl (Zofran Inj) 4 mg IVP Q6 PRN PRN Reason: Nausea/Vomiting Last Admin: 03/04/17 21:43 Dose: 4 mg Pantoprazole Sodium (Protonix Inj) 40 mg IVP DAILY [facility] Last Admin: 03/04/17 10:46 Dose: 40 mg Polyethylene Glycol (Miralax) 17 gm PO BID [facility] Last Admin: 03/01/17 17:25 Dose: 17 gm Sennosides (Senokot Tab) 8.6 mg PO BID [facility] Last Admin: 02/27/17 09:38 Dose: 8.6 mg - Labs Labs: 03/04/17 12:01 03/04/17 12:01 PT 11.5 SECONDS (9.7-12.2) 02/24/17 11:37 INR 1.0 02/24/17 11:37 APTT 35 SECONDS (21-34) H 02/24/17 11:37 - Constitutional Appears: Non-toxic, No Acute Distress, Cachectic, Chronically Ill - Head Exam Head Exam: ATRAUMATIC, NORMAL INSPECTION, NORMOCEPHALIC - Eye Exam Eye Exam: EOMI, Normal appearance, PERRL Pupil Exam: NORMAL ACCOMODATION - ENT Exam ENT Exam: Mucous Membranes Moist, Normal Exam, Normal Oropharynx, TM's Normal Bilaterally - Neck Exam Neck Exam: Normal Inspection - Respiratory Exam Respiratory Exam: Clear to Ausculation Bilateral, NORMAL BREATHING PATTERN - Cardiovascular Exam Cardiovascular Exam: REGULAR RHYTHM, +S1, +S2 - GI/Abdominal Exam GI & Abdominal Exam: Distended, Firm, Mass, Normal Bowel Sounds - Rectal Exam Rectal Exam: NORMAL INSPECTION - Neurological Exam Neurological Exam: Alert, Awake, CN II-XII Intact, Normal Gait, Oriented x3 - Psychiatric Exam Psychiatric exam: Flat Affect - Skin Skin Exam: Intact Assessment and Plan (1) Malignant ascites Assessment & Plan: AGAIN WORSENING, CONSTIPATED Status: Acute (2) Pancreatic cancer Status: Chronic (3) Malnutrition Status: Chronic
--- NOTE | 2017-03-04 23:22 | CP.PCM.PN ---
Subjective - Date & Time of Evaluation Date of Evaluation: 03/04/17 - Subjective Subjective: SMALL FEW BM'S, SHE IS FEELING A LOT OF ABDOMINAL PAIN Objective - Vital Signs/Intake and Output Vital Signs (last 24 hours): Temp Pulse Resp BP Pulse Ox 98.1 F 102 H 20 99/61 L 100 03/04/17 16:00 03/04/17 16:00 03/04/17 16:00 03/04/17 16:00 03/04/17 16:00 - Medications Medications: Current Medications Docusate Sodium (Colace) 100 mg PO BID [facility] Last Admin: 03/04/17 17:56 Dose: 100 mg Fentanyl (Duragesic) 1 patch TD Q72H [facility] Last Admin: 03/04/17 20:00 Dose: 1 patch Insulin Human Regular (Novolin R) 0 unit SC ACHS [facility] PRN Reason: Protocol Last Admin: 03/04/17 21:43 Dose: Not Given Lisinopril (Zestril) 10 mg PO DAILY [facility] Last Admin: 02/27/17 09:39 Dose: Not Given Morphine Sulfate (Morphine) 2 mg IVP Q4 PRN PRN Reason: Pain, moderate (4-7) Last Admin: 03/01/17 21:07 Dose: 2 mg Ondansetron HCl (Zofran Inj) 4 mg IVP Q6 PRN PRN Reason: Nausea/Vomiting Last Admin: 03/04/17 21:43 Dose: 4 mg Pantoprazole Sodium (Protonix Inj) 40 mg IVP DAILY [facility] Last Admin: 03/04/17 10:46 Dose: 40 mg Polyethylene Glycol (Miralax) 17 gm PO BID [facility] Last Admin: 03/01/17 17:25 Dose: 17 gm Sennosides (Senokot Tab) 8.6 mg PO BID [facility] Last Admin: 02/27/17 09:38 Dose: 8.6 mg - Labs Labs: 03/04/17 12:01 03/04/17 12:01 PT 11.5 SECONDS (9.7-12.2) 02/24/17 11:37 INR 1.0 02/24/17 11:37 APTT 35 SECONDS (21-34) H 02/24/17 11:37 - Constitutional Appears: Non-toxic, No Acute Distress - Head Exam Head Exam: ATRAUMATIC, NORMAL INSPECTION, NORMOCEPHALIC - Eye Exam Eye Exam: EOMI, Normal appearance, PERRL Pupil Exam: NORMAL ACCOMODATION - ENT Exam ENT Exam: Mucous Membranes Moist, Normal Exam, Normal Oropharynx, TM's Normal Bilaterally - Neck Exam Neck Exam: Normal Inspection - Respiratory Exam Respiratory Exam: Clear to Ausculation Bilateral, NORMAL BREATHING PATTERN - Cardiovascular Exam Cardiovascular Exam: REGULAR RHYTHM, +S1, +S2 - GI/Abdominal Exam GI & Abdominal Exam: Distended, Firm, Mass, Normal Bowel Sounds - Rectal Exam Rectal Exam: NORMAL INSPECTION - Extremities Exam Extremities Exam: Full ROM, Normal Capillary Refill - Neurological Exam Neurological Exam: Alert, Awake, CN II-XII Intact, Normal Gait, Oriented x3 Neuro motor strength exam: Left Upper Extremity: 5, Right Upper Extremity: 5, Left Lower Extremity: 5, Right Lower Extremity: 5 - Psychiatric Exam Psychiatric exam: Flat Affect - Skin Skin Exam: Intact Assessment and Plan (1) Malignant ascites Assessment & Plan: WORSE PAIN Status: Acute (2) Pancreatic cancer Status: Chronic (3) Malnutrition Status: Chronic
[2017-03-05] MEDS: (Novolin R) Insulin Human Regular 100 units/ml vial SC SCH ×4 (07:34→22:13)
--- NOTE | 2017-03-05 08:26 | CP.PCM.PN ---
Subjective - Date & Time of Evaluation Date of Evaluation: 03/05/17 Time of Evaluation: 08:24 - Subjective Subjective: Surgery Pt s&e w surgical attending. MARY. Had multiple BM. Non bloody. Denies F/C/N/V/ D/CP/SON. Pain controlled. Objective - Vital Signs/Intake and Output Vital Signs (last 24 hours): Temp Pulse Resp BP Pulse Ox 97.5 F L 97 H 20 104/69 99 03/05/17 07:17 03/05/17 07:17 03/05/17 07:17 03/05/17 07:17 03/05/17 07:17 - Medications Medications: Current Medications Docusate Sodium (Colace) 100 mg PO BID [facility] Last Admin: 03/04/17 17:56 Dose: 100 mg Fentanyl (Duragesic) 1 patch TD Q72H [facility] Last Admin: 03/04/17 20:00 Dose: 1 patch Insulin Human Regular (Novolin R) 0 unit SC ACHS [facility] PRN Reason: Protocol Last Admin: 03/05/17 07:34 Dose: Not Given Lisinopril (Zestril) 10 mg PO DAILY [facility] Last Admin: 02/27/17 09:39 Dose: Not Given Metoclopramide HCl (Reglan) 10 mg IVP ACHS [facility] Morphine Sulfate (Morphine) 2 mg IVP Q4 PRN PRN Reason: Pain, moderate (4-7) Last Admin: 03/01/17 21:07 Dose: 2 mg Ondansetron HCl (Zofran Inj) 4 mg IVP Q6 PRN PRN Reason: Nausea/Vomiting Last Admin: 03/04/17 21:43 Dose: 4 mg Pantoprazole Sodium (Protonix Inj) 40 mg IVP DAILY [facility] Last Admin: 03/04/17 10:46 Dose: 40 mg Polyethylene Glycol (Miralax) 17 gm PO BID [facility] Last Admin: 03/01/17 17:25 Dose: 17 gm Sennosides (Senokot Tab) 8.6 mg PO BID [facility] Last Admin: 02/27/17 09:38 Dose: 8.6 mg - Labs Labs: 03/04/17 12:01 03/04/17 12:01 PT 11.5 SECONDS (9.7-12.2) 02/24/17 11:37 INR 1.0 02/24/17 11:37 APTT 35 SECONDS (21-34) H 02/24/17 11:37 - Constitutional Appears: No Acute Distress - Head Exam Head Exam: ATRAUMATIC, NORMAL INSPECTION, NORMOCEPHALIC - Eye Exam Eye Exam: EOMI, Normal appearance, PERRL Pupil Exam: NORMAL ACCOMODATION, PERRL - ENT Exam ENT Exam: Mucous Membranes Moist, Normal Exam - Neck Exam Neck Exam: Full ROM, Normal Inspection. absent: Lymphadenopathy - Respiratory Exam Respiratory Exam: Clear to Ausculation Bilateral, NORMAL BREATHING PATTERN - Cardiovascular Exam Cardiovascular Exam: REGULAR RHYTHM, +S1, +S2. absent: Murmur - GI/Abdominal Exam GI & Abdominal Exam: Distended, Soft, Tenderness, Normal Bowel Sounds. absent: Firm - Exam Exam: NORMAL INSPECTION - Extremities Exam Extremities Exam: Full ROM, Normal Capillary Refill, Normal Inspection. absent : Joint Swelling, Pedal Edema - Back Exam Back Exam: NORMAL INSPECTION - Neurological Exam Neurological Exam: Alert, Awake, CN II-XII Intact, Normal Gait, Oriented x3 - Psychiatric Exam Psychiatric exam: Normal Affect, Normal Mood - Skin Skin Exam: Dry, Intact, Normal Color, Warm Assessment and Plan - Assessment and Plan (Free Text) Assessment: 66F w. pancreatic ca, surgery consulted for constipation: resolved Plan: Pt having bowel function CT with no signs of ileus or obstruction Abd pain/Distension likely related to ascites No plan for surgical intervention Continue bowel regimen prn advance diet slowly as tolerated Ravi Gold
--- NOTE | 2017-03-05 11:33 | RAD ---
HISTORY: f/u COMPARISON: Abdomen obstructive 03/01/2017. FINDINGS: BOWEL: All contrast opacifies segments of large bowel including rectosigmoid but also a short segment of the small-bowel in the right lower quadrant. Small bowel does not appear significant dilated at this time and the findings likely reflect diminishing ileus with minimal residual partial or intermittent distal small bowel obstruction not excluded. No free intrarenal gas identified throughout. No suspicious air-fluid levels. Retained excreted contrast seen at the lower pole left kidney once again in the left flank. No free intraperitoneal gas identified. BONES: Normal. OTHER FINDINGS: None. IMPRESSION: Likely diminishing bowel ileus. Please see discussion above.
--- NOTE | 2017-03-05 13:10 | CP.PCM.PN ---
Subjective - Date & Time of Evaluation Date of Evaluation: 03/05/17 Time of Evaluation: 12:10 - Subjective Subjective: Feels more comfortable after BM Objective - Vital Signs/Intake and Output Vital Signs (last 24 hours): Temp Pulse Resp BP Pulse Ox 97.5 F L 97 H 20 104/69 99 03/05/17 07:17 03/05/17 07:17 03/05/17 07:17 03/05/17 07:17 03/05/17 07:17 - Medications Medications: Current Medications Docusate Sodium (Colace) 100 mg PO BID [facility] Last Admin: 03/05/17 09:41 Dose: 100 mg Fentanyl (Duragesic) 1 patch TD Q72H [facility] Last Admin: 03/04/17 20:00 Dose: 1 patch Insulin Human Regular (Novolin R) 0 unit SC [facility] PRN Reason: Protocol Last Admin: 03/05/17 12:14 Dose: Not Given Lisinopril (Zestril) 10 mg PO DAILY [facility] Last Admin: 02/27/17 09:39 Dose: Not Given Metoclopramide HCl (Reglan) 10 mg IVP [facility] Last Admin: 03/05/17 10:48 Dose: Not Given Morphine Sulfate (Morphine) 2 mg IVP Q4 PRN PRN Reason: Pain, moderate (4-7) Last Admin: 03/01/17 21:07 Dose: 2 mg Ondansetron HCl (Zofran Inj) 4 mg IVP Q6 PRN PRN Reason: Nausea/Vomiting Last Admin: 03/04/17 21:43 Dose: 4 mg Pantoprazole Sodium (Protonix Inj) 40 mg IVP DAILY [facility] Last Admin: 03/05/17 09:41 Dose: 40 mg Polyethylene Glycol (Miralax) 17 gm PO BID [facility] Last Admin: 03/01/17 17:25 Dose: 17 gm Sennosides (Senokot Tab) 8.6 mg PO BID [facility] Last Admin: 02/27/17 09:38 Dose: 8.6 mg - Labs Labs: 03/04/17 12:01 03/04/17 12:01 PT 11.5 SECONDS (9.7-12.2) 02/24/17 11:37 INR 1.0 02/24/17 11:37 APTT 35 SECONDS (21-34) H 02/24/17 11:37 - Head Exam Head Exam: ATRAUMATIC - Eye Exam Eye Exam: Normal appearance - ENT Exam ENT Exam: Mucous Membranes Dry - Respiratory Exam Respiratory Exam: NORMAL BREATHING PATTERN - Cardiovascular Exam Cardiovascular Exam: +S1, +S2 Assessment and Plan (1) 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
--- NOTE | 2017-03-05 14:15 | CP.PCM.PN ---
Subjective - Date & Time of Evaluation Date of Evaluation: 03/05/17 Time of Evaluation: 01:00 - Subjective Subjective: Patient complains of food intolerance , nausea and abdominal pain. Objective - Vital Signs/Intake and Output Vital Signs (last 24 hours): Temp Pulse Resp BP Pulse Ox 97.5 F L 97 H 20 104/69 99 03/05/17 07:17 03/05/17 07:17 03/05/17 07:17 03/05/17 07:17 03/05/17 07:17 - Medications Medications: Current Medications Docusate Sodium (Colace) 100 mg PO BID [facility] Last Admin: 03/05/17 09:41 Dose: 100 mg Fentanyl (Duragesic) 1 patch TD Q72H [facility] Last Admin: 03/04/17 20:00 Dose: 1 patch Insulin Human Regular (Novolin R) 0 unit SC [facility] PRN Reason: Protocol Last Admin: 03/05/17 12:14 Dose: Not Given Lisinopril (Zestril) 10 mg PO DAILY [facility] Last Admin: 02/27/17 09:39 Dose: Not Given Metoclopramide HCl (Reglan) 10 mg IVP [facility] Last Admin: 03/05/17 10:48 Dose: Not Given Morphine Sulfate (Morphine) 2 mg IVP Q4 PRN PRN Reason: Pain, moderate (4-7) Last Admin: 03/01/17 21:07 Dose: 2 mg Ondansetron HCl (Zofran Inj) 4 mg IVP Q6 PRN PRN Reason: Nausea/Vomiting Last Admin: 03/04/17 21:43 Dose: 4 mg Pantoprazole Sodium (Protonix Inj) 40 mg IVP DAILY [facility] Last Admin: 03/05/17 09:41 Dose: 40 mg Polyethylene Glycol (Miralax) 17 gm PO BID [facility] Last Admin: 03/01/17 17:25 Dose: 17 gm Sennosides (Senokot Tab) 8.6 mg PO BID [facility] Last Admin: 02/27/17 09:38 Dose: 8.6 mg - Labs Labs: 03/04/17 12:01 03/04/17 12:01 PT 11.5 SECONDS (9.7-12.2) 02/24/17 11:37 INR 1.0 02/24/17 11:37 APTT 35 SECONDS (21-34) H 02/24/17 11:37 - Constitutional Appears: Cachectic, Chronically Ill - Head Exam Head Exam: ATRAUMATIC, NORMAL INSPECTION, NORMOCEPHALIC - Eye Exam Eye Exam: Normal appearance, PERRL Pupil Exam: NORMAL ACCOMODATION, PERRL - ENT Exam ENT Exam: Mucous Membranes Moist, Normal Exam - Neck Exam Neck Exam: Full ROM, Normal Inspection - Respiratory Exam Respiratory Exam: Decreased Breath Sounds, NORMAL BREATHING PATTERN - Cardiovascular Exam Cardiovascular Exam: REGULAR RHYTHM - GI/Abdominal Exam GI & Abdominal Exam: Tenderness, Normal Bowel Sounds - Rectal Exam Rectal Exam: Deferred - Extremities Exam Extremities Exam: Pedal Edema - Back Exam Back Exam: NORMAL INSPECTION - Neurological Exam Neurological Exam: Alert, Oriented x3 Neuro motor strength exam: Left Upper Extremity: 2/, Right Upper Extremity: 2/ , Left Lower Extremity: 2, Right Lower Extremity: 2 - Psychiatric Exam Psychiatric exam: Normal Affect, Normal Mood - Skin Skin Exam: Normal Color, Warm Assessment and Plan - Assessment and Plan (Free Text) Assessment: I was called in by Willow, the therapeutic case manager to discuss goals of care with family , as thy were at bed side. Patient's son Waldo with his two friends was present. Patient was sitting at the edge of the bed trying to have her lunch. Patient reported being unable to tolerate food, and was trying small sips of chicken broth. Patient looks as if she lost weight since I saw her last . It is amazing how stoic this woman is. She fallowed the whole conversation regarding her goals of care and fully participated in it. Patient very clearly stated again that she would not want any aggressive treatments to be applied to unnecessary prolong her life, including no PEG, NO CPR and no intubation. Further. patient stated wanting to be home as oppose to the hospital or the alf.When I presented POLST to the patient , her son and two other friends spoke to patient in [place] and patient declined to sign it. We discussed the home Hospice as one of the options as patient would need a lot of support. The concern was that Hospice offers usually 2 hr of home visit field care manager a day , and in that case patient would have to stay home alone until her son comes back from work. We explored all other possibilities such as family and friends network to assist patient during her illness. The son felt he was not able to obtain enough assistance at home for his mother and was exploring all other alternatives. I included Cielo therapeutic case manager to assist with the Insurance Information. We did not reach any agreement this time. Family felt they needed to discuss the whole thing over with Doctor Jones and explore if there was any other surgical recommendations before the Hospice care was decided upon. Impression * This is terminally ill patient, given terminal diagnosis by her oncologist and further Chemo Tx was discontinued * Family is aware of her terminal diagnosis and poor prognosis * Patient is very clear that she would not want aggressive treatments and would like to be discharged home when stable * Patient's son is influencing patient in decision making process by introducing unrealistic hope . My impression is that the son is afraid of taking mother home as he would not be able to offer her needed support. Suggestion * PMD should talk to the son at present him with the clear picture of what to expect and what level of care would be the most beneficial for the patient. * I would fallow patient's wishes for DNR/DNI and discharge home with hospice care
--- NOTE | 2017-03-05 23:36 | CP.PCM.PN ---
Subjective - Date & Time of Evaluation Date of Evaluation: 03/05/17 - Subjective Subjective: WEAK, SICK, NO COUGH, ABDOMINAL DISTRESS, BETTER WITH DURAGESIC PATCH Objective - Vital Signs/Intake and Output Vital Signs (last 24 hours): Temp Pulse Resp BP Pulse Ox 98.1 F 108 H 20 98/67 L 100 03/05/17 16:00 03/05/17 16:00 03/05/17 16:00 03/05/17 16:00 03/05/17 16:00 Intake and Output: 03/05/17 03/06/17 18:59 06:59 Intake Total 250 Balance 250 - Medications Medications: Current Medications Docusate Sodium (Colace) 100 mg PO BID [facility] Last Admin: 03/05/17 18:38 Dose: 100 mg Fentanyl (Duragesic) 1 patch TD Q72H [facility] Last Admin: 03/04/17 20:00 Dose: 1 patch Insulin Human Regular (Novolin R) 0 unit SC [facility] PRN Reason: Protocol Last Admin: 03/05/17 22:13 Dose: Not Given Lisinopril (Zestril) 10 mg PO DAILY [facility] Last Admin: 02/27/17 09:39 Dose: Not Given Metoclopramide HCl (Reglan) 10 mg IVP [facility] Last Admin: 03/05/17 16:30 Dose: 10 mg Morphine Sulfate (Morphine) 2 mg IVP Q4 PRN PRN Reason: Pain, moderate (4-7) Last Admin: 03/01/17 21:07 Dose: 2 mg Ondansetron HCl (Zofran Inj) 4 mg IVP Q6 PRN PRN Reason: Nausea/Vomiting Last Admin: 03/05/17 18:42 Dose: 4 mg Pantoprazole Sodium (Protonix Inj) 40 mg IVP DAILY [facility] Last Admin: 03/05/17 09:41 Dose: 40 mg Polyethylene Glycol (Miralax) 17 gm PO BID [facility] Last Admin: 03/01/17 17:25 Dose: 17 gm Sennosides (Senokot Tab) 8.6 mg PO BID [facility] Last Admin: 02/27/17 09:38 Dose: 8.6 mg - Labs Labs: 03/04/17 12:01 03/04/17 12:01 PT 11.5 SECONDS (9.7-12.2) 02/24/17 11:37 INR 1.0 02/24/17 11:37 APTT 35 SECONDS (21-34) H 02/24/17 11:37 - Constitutional Appears: Non-toxic, In Acute Distress, Cachectic, Chronically Ill - Head Exam Head Exam: ATRAUMATIC, NORMAL INSPECTION, NORMOCEPHALIC - Eye Exam Eye Exam: EOMI, Normal appearance, PERRL Pupil Exam: NORMAL ACCOMODATION - ENT Exam ENT Exam: Mucous Membranes Moist, Normal Exam, Normal Oropharynx, TM's Normal Bilaterally - Neck Exam Neck Exam: Normal Inspection - Respiratory Exam Respiratory Exam: Clear to Ausculation Bilateral, NORMAL BREATHING PATTERN - Cardiovascular Exam Cardiovascular Exam: REGULAR RHYTHM, +S1, +S2 - GI/Abdominal Exam GI & Abdominal Exam: Distended, Mass, Normal Bowel Sounds - Rectal Exam Rectal Exam: NORMAL INSPECTION - Neurological Exam Neurological Exam: Alert, Awake, CN II-XII Intact, Normal Gait, Oriented x3 Assessment and Plan (1) Malignant ascites Status: Acute (2) Pancreatic cancer Status: Chronic (3) Malnutrition Status: Chronic
[2017-03-06 07:33] LABS: BASO % 0.1 % (0.0-2.0); EOS # 0.1 K/uL (0.0-0.7); EOS % 0.8 % (0.0-4.0); HEMATOCRIT 31.8 % (34.0-47.0); LYMPH # 1.2 K/uL (1.0-4.3); LYMPH % 10.8 % (20.0-40.0); MEAN CELL VOLUME 83.2 fL (81.0-99.0); MEAN CORPUSCULAR HEMOGLOBIN 27.2 pg (27.0-31.0); MEAN CORPUSCULAR HGB CONC 32.7 g/dL (33.0-37.0); MEAN PLATELET VOLUME 7.7 fL (7.2-11.7); MONO # 0.8 K/uL (0.0-0.8); MONO % 6.9 % (0.0-10.0); RED CELL DISTRIBUTION WIDTH 17.6 % (11.5-14.5); WHITE BLOOD COUNT 11.2 K/uL (4.8-10.8)
[2017-03-06 07:47] LABS: CHLORIDE 103 mmol/L (98-107); POTASSIUM 4.8 mmol/L (3.6-5.2); SODIUM 128 mmol/L (132-148)
[2017-03-06 07:50] LABS: BLOOD UREA NITROGEN 31 mg/dL (7-17); CALCIUM 8.1 mg/dl (8.6-10.4); CARBON DIOXIDE 18 mmol/L (22-30); GFR AFRICAN-AMERICAN > 60; GLUCOSE,RANDOM 119 mg/dL (65-105)
[2017-03-06] MEDS: (Novolin R) Insulin Human Regular 100 units/ml vial SC SCH ×4 (08:45→22:13)
--- NOTE | 2017-03-06 19:03 | CP.PCM.PN ---
Subjective - Date & Time of Evaluation Date of Evaluation: 03/06/17 Time of Evaluation: 17:00 - Subjective Subjective: Tolerating soup and pudding today Has baseline abdominal discomfort Objective - Vital Signs/Intake and Output Vital Signs (last 24 hours): Temp Pulse Resp BP Pulse Ox 98.2 F 98 H 22 83/59 L 99 03/06/17 15:00 03/06/17 15:00 03/06/17 15:00 03/06/17 15:00 03/06/17 15:00 Intake and Output: 03/06/17 03/07/17 18:59 06:59 Intake Total 330 Balance 330 - Medications Medications: Current Medications Docusate Sodium (Colace) 100 mg PO BID [facility] Last Admin: 03/06/17 17:51 Dose: 100 mg Fentanyl (Duragesic) 1 patch TD Q72H [facility] Last Admin: 03/04/17 20:00 Dose: 1 patch Insulin Human Regular (Novolin R) 0 unit SC [facility] PRN Reason: Protocol Last Admin: 03/06/17 16:30 Dose: Not Given Lisinopril (Zestril) 10 mg PO DAILY [facility] Last Admin: 02/27/17 09:39 Dose: Not Given Metoclopramide HCl (Reglan) 10 mg IVP [facility] Last Admin: 03/06/17 16:30 Dose: 10 mg Morphine Sulfate (Morphine) 2 mg IVP Q6 PRN PRN Reason: Pain, moderate (4-7) Last Admin: 03/06/17 12:27 Dose: 2 mg Ondansetron HCl (Zofran Inj) 4 mg IVP Q6 PRN PRN Reason: Nausea/Vomiting Last Admin: 03/06/17 12:34 Dose: 4 mg Pantoprazole Sodium (Protonix Inj) 40 mg IVP DAILY [facility] Last Admin: 03/06/17 10:15 Dose: 40 mg Polyethylene Glycol (Miralax) 17 gm PO BID [facility] Last Admin: 03/01/17 17:25 Dose: 17 gm Sennosides (Senokot Tab) 8.6 mg PO BID [facility] Last Admin: 02/27/17 09:38 Dose: 8.6 mg - Labs Labs: 03/06/17 07:08 03/06/17 07:08 PT 11.5 SECONDS (9.7-12.2) 02/24/17 11:37 INR 1.0 02/24/17 11:37 APTT 35 SECONDS (21-34) H 02/24/17 11:37 - Head Exam Head Exam: ATRAUMATIC - Eye Exam Eye Exam: Normal appearance - ENT Exam ENT Exam: Mucous Membranes Dry - Respiratory Exam Respiratory Exam: NORMAL BREATHING PATTERN - Cardiovascular Exam Cardiovascular Exam: +S1, +S2 - GI/Abdominal Exam GI & Abdominal Exam: Normal Bowel Sounds - Back Exam Back Exam: NORMAL INSPECTION Assessment and Plan (1) Pancreatic cancer Assessment & Plan: stage IV off chemotherapy pain control and bowel regimen on supportive/palliative care Status: Chronic
--- NOTE | 2017-03-06 22:25 | CP.PCM.PN ---
Subjective - Date & Time of Evaluation Date of Evaluation: 03/07/17 - Subjective Subjective: weak, D/W DAUGHTER FOR HOSPICE, FAMILY IS UNDECIDED, NO FEVER, WEAK, NO SOB, NO CHEST PAIN Objective - Vital Signs/Intake and Output Vital Signs (last 24 hours): Temp Pulse Resp BP Pulse Ox 98.2 F 98 H 22 83/59 L 99 03/06/17 15:00 03/06/17 15:00 03/06/17 15:00 03/06/17 15:00 03/06/17 15:00 Intake and Output: 03/06/17 03/07/17 18:59 06:59 Intake Total 330 Balance 330 - Medications Medications: Current Medications Docusate Sodium (Colace) 100 mg PO BID [facility] Last Admin: 03/06/17 17:51 Dose: 100 mg Fentanyl (Duragesic) 1 patch TD Q72H [facility] Last Admin: 03/04/17 20:00 Dose: 1 patch Insulin Human Regular (Novolin R) 0 unit SC [facility] PRN Reason: Protocol Last Admin: 03/06/17 22:13 Dose: Not Given Lisinopril (Zestril) 10 mg PO DAILY [facility] Last Admin: 02/27/17 09:39 Dose: Not Given Metoclopramide HCl (Reglan) 10 mg IVP [facility] Last Admin: 03/06/17 22:14 Dose: 10 mg Morphine Sulfate (Morphine) 2 mg IVP Q6 PRN PRN Reason: Pain, moderate (4-7) Last Admin: 03/06/17 12:27 Dose: 2 mg Ondansetron HCl (Zofran Inj) 4 mg IVP Q6 PRN PRN Reason: Nausea/Vomiting Last Admin: 03/06/17 12:34 Dose: 4 mg Pantoprazole Sodium (Protonix Inj) 40 mg IVP DAILY [facility] Last Admin: 03/06/17 10:15 Dose: 40 mg Polyethylene Glycol (Miralax) 17 gm PO BID [facility] Last Admin: 03/01/17 17:25 Dose: 17 gm Sennosides (Senokot Tab) 8.6 mg PO BID [facility] Last Admin: 02/27/17 09:38 Dose: 8.6 mg - Labs Labs: 03/06/17 07:08 03/06/17 07:08 PT 11.5 SECONDS (9.7-12.2) 02/24/17 11:37 INR 1.0 02/24/17 11:37 APTT 35 SECONDS (21-34) H 02/24/17 11:37 - Constitutional Appears: Non-toxic, No Acute Distress, Cachectic, Chronically Ill - Head Exam Head Exam: ATRAUMATIC, NORMAL INSPECTION, NORMOCEPHALIC - Eye Exam Eye Exam: EOMI, Normal appearance, PERRL Pupil Exam: NORMAL ACCOMODATION - ENT Exam ENT Exam: Mucous Membranes Moist, Normal Exam, Normal Oropharynx, TM's Normal Bilaterally - Neck Exam Neck Exam: Normal Inspection - Respiratory Exam Respiratory Exam: Clear to Ausculation Bilateral, NORMAL BREATHING PATTERN - Cardiovascular Exam Cardiovascular Exam: REGULAR RHYTHM, +S1, +S2 - GI/Abdominal Exam GI & Abdominal Exam: Distended, Tenderness, Mass - Rectal Exam Rectal Exam: NORMAL INSPECTION - Extremities Exam Extremities Exam: Full ROM, Normal Capillary Refill, Normal Inspection - Neurological Exam Neurological Exam: Abnormal Gait, Alert, Awake, CN II-XII Intact, Oriented x3 Assessment and Plan (1) Malignant ascites Assessment & Plan: SUPPORTIVE CARE Status: Acute (2) Pancreatic cancer Status: Chronic (3) Malnutrition Status: Chronic
[2017-03-07] MEDS: (Novolin R) Insulin Human Regular 100 units/ml vial SC SCH ×4 (08:03→21:29)
[2017-03-07] MEDS ORDERED: Propofol 10 mg/ml Inj (20 ML) ONE (09:41)
--- NOTE | 2017-03-07 10:46 | PCM.SURG1 ---
Surgeon's Initial Post Op Note - Surgeon's Notes Surgeon: Ritesh Meléndez MD Sheather: NONE Type of Anesthesia: IV Sedation Pre-Operative Diagnosis: Pancreatic cancer, maligant ascites Operative Findings: US showed moderate ascites Post-Operative Diagnosis: Pancreatic cancer Operation Performed: Placement of a tunneled peritoneal drainage catheter. Specimen/Specimens Removed: 2 liters of serosanguinous fluid Estimated Blood Loss: EBL {In ML}: 2 Blood Products Given: N/A Drains Used: No Drains Post-Op Condition: Poor Date of Surgery/Procedure: 03/07/17 Time of Surgery/Procedure: 10:40
--- NOTE | 2017-03-07 14:14 | PCM.RRT ---
<Elaine Dalton - Last Filed: 03/07/17 14:33> [employer] Nurses Assessment - Situation [employer] Responder Arrival Time: 14:12 Location: 369A Room Number: [id number] [employer] Reason for Call: Change in Mental Status [employer] Called By: RN - IV IV Inserted during [employer] AGENT?: No - Respiratory Oxygen Delivery Method: Nasal Cannula, Venturi Mask Received Nebulizer Treatments: No Was the Patient Ventilated with Bag/Mask 100% O2?: No Secretions Suctioned?: No Was the Patient Intubated?: No Was the Patient Placed on a Ventilator?: No - Diagnostic Test Ordered EKG: No Chest X-Ray: No CT Scan: No CPR started during [employer]ENT?: No - [place] Coma Scale Coma Scale Eye Opening: Spontaneous Coma Scale Motor: Obeys Commands Movement Coma Scale Verbal: Oriented Coma Scale Total: 15 - Time [employer] Ended Time [employer] Ended: 18:29 - Recommendations 5) [employer] Level of Care Recommendations: Remain in current setting - Constitutional Appears: In Acute Distress, Chronically Ill - Cardiovascular Exam Cardiovascular Exam: Tachycardia, REGULAR RHYTHM, RRR, +S1, +S2 - Neurological Exam Neurological Exam: Alert, Awake, Oriented x3 Plan - Assessment of Findings&Treatment Plan [employer] was called by the RN at 14:12 because the patient was found to be unresponsive in the bathroom. Patient states she went to the bathroom to vomit. Per nurse she was found staring blankly and non-response to voice command. Per nurse she moved the patient to the bed and she continued to not respond. Upon arrival B/P: 61/45; HR 137; O% 76 on 5: NC. Glucose 224. Patient received N/S 1000 bolus. Ordered 12.5g Albumin in 50ml x2. Patient was increased to 15L of NC then changed to a venti mask and O2 % 96%. B/P 69/46 ; HR 128. EKG and Chest x-ray ordered. PMD will be informed and family of [employer]. <Romeo Dillon - Last Filed: 03/07/17 16:17> Attending/Attestation - Attestation I have personally seen and examined this patient.: Yes I have fully participated in the care of the patient.: Yes I have reviewed all pertinent clinical information, including history, physical exam and plan: Yes Notes (Text): 03/07/17 16:14 Medical hospitalist: Patient was seen and examined by me, agrees the above note by durable medical equipment repairer. An [employer]ENT was called after the patient stood up and tried to go to the bathroom. Nurse aid were in the room with the patient noted that she became very lightheaded appearance and complained of dizziness and had difficulty ambulating. From what I understand she had just had a paracentesis done with 2 L drawn she has a history of pancreatic CA. She was also wearing a fentanyl patch for pain and earlier in the day had IV morphine. They explained to me that she had just come back from the procedure this morning. She does have a somewhat low albumen level and this probably contributed to her having orthostatic event when she tried to stand and walk. She was placed in Trendelenburg position, her SPO2 was stable. She was mentating okay. She was alert and orientated 3. She is following all commands. However when checking her blood pressure her first blood pressure was in the 60s systolic. Because of the low blood pressure we decided to give her a 1 L bolus of intravenous fluids. She should also have additional runs of albumen as well and we ordered these. We also took off her fentanyl patch as well. Thank you very much, I asked the durable medical equipment repairer to notify the patients attending as well as the patient's family Romeo Dillon
[2017-03-07] MEDS ORDERED: Sodium Chloride 0.9% 500 ML IV ONE (14:18)
[2017-03-07] MEDS ORDERED: Albumin Human 25% (12.5 gm/50 ml) IV STA (14:20)
[2017-03-07] MEDS ORDERED: Albumin Human 25% (12.5 gm/50 ml) IV SCH (14:25)
[2017-03-07] MEDS: Sodium Chloride 0.9% 1,000 ML IV ONE ×2 (15:00→15:12)
[2017-03-07] MEDS ORDERED: Azithromycin 500mg/250ML NS 500 MG/250 ML BAG IVPB SCH (15:00)
--- NOTE | 2017-03-07 15:01 | RAD ---
HISTORY: dyspnea COMPARISON: Chest x-ray performed 02/24/17 TECHNIQUE: Chest, one view. FINDINGS: Right MediPort catheter extends the SVC. LUNGS: Interval development of extensive patchy opacities with prominence in the right perihilar and mid to lower lung zone worrisome for pneumonia. PLEURA: No significant pleural effusion identified. No definite pneumothorax . CARDIOVASCULAR: Right heart border partially obscured. Heart size appears within normal limits. OSSEOUS STRUCTURES: No acute osseous abnormality identified. VISUALIZED UPPER ABDOMEN: Unremarkable. OTHER FINDINGS: None. IMPRESSION: Interval development of extensive patchy opacities with prominence in the right perihilar and mid to lower lung zone worrisome for pneumonia. Correlate clinically. Right-sided MediPort extends the SVC.
[2017-03-07] MEDS: Albumin Human 25% (12.5 gm/50 ml) IV SCH ×2 (15:11→15:12)
[2017-03-07] MEDS: Azithromycin 500 MG in Sodium Chloride 0.9% 250 ML IVPB SCH (17:00)
--- NOTE | 2017-03-07 19:14 | CARD ---
APPROVED REPORT EKG Measurement Heart [id number] NM [id number] [id number] <Conclusion> Normal sinus rhythm Left axis deviation Poor R wave progression. Baseline artifact. Abnormal ECG
[2017-03-08] MEDS: (Novolin R) Insulin Human Regular 100 units/ml vial SC SCH ×4 (07:49→21:34)
[2017-03-08 08:00] LABS: ALB/GLOB RATIO 0.9 (1.0-2.1); ALKALINE PHOSPHATASE 73 U/L (38-126); ALT/SGPT 27 U/L (9-52); AST/SGOT 17 U/L (14-36); BILIRUBIN,TOTAL 0.5 mg/dL (0.2-1.3); BLOOD UREA NITROGEN 30 mg/dL (7-17); CALCIUM 7.6 mg/dl (8.6-10.4); CARBON DIOXIDE 15 mmol/L (22-30); CHLORIDE 103 mmol/L (98-107); GFR AFRICAN-AMERICAN > 60; GLUCOSE,RANDOM 106 mg/dL (65-105); POTASSIUM 4.2 mmol/L (3.6-5.2); SODIUM 131 mmol/L (132-148); TOTAL PROTEIN 4.5 g/dL (6.3-8.3)
[2017-03-08] MEDS: Azithromycin 500 MG in Sodium Chloride 0.9% 250 ML IVPB SCH (17:14)
--- NOTE | 2017-03-09 00:26 | CP.PCM.PN ---
Subjective - Date & Time of Evaluation Date of Evaluation: 03/07/17 - Subjective Subjective: FEELS LUQ PAIN, WEAK, NO SOB, HAS CHEST PAIN, DIZZINESS Objective - Vital Signs/Intake and Output Vital Signs (last 24 hours): Temp Pulse Resp BP Pulse Ox 98.3 F 103 H 20 92/57 L 98 03/08/17 16:50 03/08/17 16:50 03/08/17 16:50 03/08/17 22:00 03/08/17 16:50 Intake and Output: 03/08/17 03/09/17 18:59 06:59 Intake Total 470 Balance 470 - Medications Medications: Current Medications Docusate Sodium (Colace) 100 mg PO BID [facility] Last Admin: 03/08/17 17:13 Dose: 100 mg Azithromycin 500 mg/ Sodium (Chloride) 250 mls @ 167 mls/hr IVPB Q24H [facility] Last Admin: 03/08/17 17:14 Dose: 167 mls/hr Ceftriaxone Sodium 1 gm/ (Sodium Chloride) 100 mls @ 100 mls/hr IVPB Q24H [facility] Last Admin: 03/08/17 17:14 Dose: 100 mls/hr Insulin Human Regular (Novolin R) 0 unit SC [facility] PRN Reason: Protocol Last Admin: 03/08/17 21:34 Dose: Not Given Lisinopril (Zestril) 10 mg PO DAILY [facility] Last Admin: 02/27/17 09:39 Dose: Not Given Metoclopramide HCl (Reglan) 10 mg IVP [facility] Last Admin: 03/08/17 21:33 Dose: 10 mg Morphine Sulfate (Morphine) 2 mg IVP Q6 PRN PRN Reason: Pain, moderate (4-7) Last Admin: 03/08/17 22:14 Dose: 2 mg Ondansetron HCl (Zofran Inj) 4 mg IVP Q6 PRN PRN Reason: Nausea/Vomiting Last Admin: 03/08/17 13:49 Dose: 4 mg Pantoprazole Sodium (Protonix Inj) 40 mg IVP DAILY [facility] Last Admin: 03/08/17 10:44 Dose: 40 mg Polyethylene Glycol (Miralax) 17 gm PO BID [facility] Last Admin: 03/01/17 17:25 Dose: 17 gm Sennosides (Senokot Tab) 8.6 mg PO BID [facility] Last Admin: 02/27/17 09:38 Dose: 8.6 mg - Labs Labs: 03/06/17 07:08 03/08/17 07:37 PT 11.5 SECONDS (9.7-12.2) 02/24/17 11:37 INR 1.0 02/24/17 11:37 APTT 35 SECONDS (21-34) H 02/24/17 11:37 - Constitutional Appears: Non-toxic, In Acute Distress, Cachectic, Chronically Ill - Head Exam Head Exam: ATRAUMATIC, NORMAL INSPECTION, NORMOCEPHALIC - Eye Exam Eye Exam: EOMI, Normal appearance, PERRL Pupil Exam: NORMAL ACCOMODATION - ENT Exam ENT Exam: Mucous Membranes Moist, Normal Exam, Normal Oropharynx, TM's Normal Bilaterally - Neck Exam Neck Exam: Normal Inspection - Respiratory Exam Respiratory Exam: Clear to Ausculation Bilateral, Rales - Cardiovascular Exam Cardiovascular Exam: REGULAR RHYTHM, +S1, +S2 - GI/Abdominal Exam GI & Abdominal Exam: Distended, Firm, Soft - Rectal Exam Rectal Exam: NORMAL INSPECTION - Extremities Exam Extremities Exam: Normal Capillary Refill, Normal Inspection - Neurological Exam Neurological Exam: Abnormal Gait, Alert, Awake, CN II-XII Intact, Oriented x3 Neuro motor strength exam: Left Upper Extremity: 5, Right Upper Extremity: 5, Left Lower Extremity: 5, Right Lower Extremity: 5 - Psychiatric Exam Psychiatric exam: Anxious, Flat Affect - Skin Skin Exam: Intact Assessment and Plan (1) Malignant ascites Assessment & Plan: S/P PARACENTESIS Status: Acute (2) Pancreatic cancer Status: Chronic (3) Malnutrition Status: Chronic
--- NOTE | 2017-03-09 00:28 | CP.PCM.PN ---
Subjective - Date & Time of Evaluation Date of Evaluation: 03/08/17 - Subjective Subjective: WEAK, PAIN IN ABDOMEN, NO FEVER, COUGH, CHEST PAIN Objective - Vital Signs/Intake and Output Vital Signs (last 24 hours): Temp Pulse Resp BP Pulse Ox 98.3 F 103 H 20 92/57 L 98 03/08/17 16:50 03/08/17 16:50 03/08/17 16:50 03/08/17 22:00 03/08/17 16:50 Intake and Output: 03/08/17 03/09/17 18:59 06:59 Intake Total 470 Balance 470 - Medications Medications: Current Medications Docusate Sodium (Colace) 100 mg PO BID [facility] Last Admin: 03/08/17 17:13 Dose: 100 mg Azithromycin 500 mg/ Sodium (Chloride) 250 mls @ 167 mls/hr IVPB Q24H [facility] Last Admin: 03/08/17 17:14 Dose: 167 mls/hr Ceftriaxone Sodium 1 gm/ (Sodium Chloride) 100 mls @ 100 mls/hr IVPB Q24H [facility] Last Admin: 03/08/17 17:14 Dose: 100 mls/hr Insulin Human Regular (Novolin R) 0 unit SC [facility] PRN Reason: Protocol Last Admin: 03/08/17 21:34 Dose: Not Given Lisinopril (Zestril) 10 mg PO DAILY [facility] Last Admin: 02/27/17 09:39 Dose: Not Given Metoclopramide HCl (Reglan) 10 mg IVP ACHS [facility] Last Admin: 03/08/17 21:33 Dose: 10 mg Morphine Sulfate (Morphine) 2 mg IVP Q6 PRN PRN Reason: Pain, moderate (4-7) Last Admin: 03/08/17 22:14 Dose: 2 mg Ondansetron HCl (Zofran Inj) 4 mg IVP Q6 PRN PRN Reason: Nausea/Vomiting Last Admin: 03/08/17 13:49 Dose: 4 mg Pantoprazole Sodium (Protonix Inj) 40 mg IVP DAILY [facility] Last Admin: 03/08/17 10:44 Dose: 40 mg Polyethylene Glycol (Miralax) 17 gm PO BID [facility] Last Admin: 03/01/17 17:25 Dose: 17 gm Sennosides (Senokot Tab) 8.6 mg PO BID [facility] Last Admin: 02/27/17 09:38 Dose: 8.6 mg - Labs Labs: 03/06/17 07:08 03/08/17 07:37 PT 11.5 SECONDS (9.7-12.2) 02/24/17 11:37 INR 1.0 02/24/17 11:37 APTT 35 SECONDS (21-34) H 02/24/17 11:37 - Constitutional Appears: Non-toxic, No Acute Distress, Cachectic, Chronically Ill - Head Exam Head Exam: ATRAUMATIC, NORMAL INSPECTION, NORMOCEPHALIC - Eye Exam Eye Exam: EOMI, Normal appearance, PERRL Pupil Exam: NORMAL ACCOMODATION - ENT Exam ENT Exam: Mucous Membranes Moist, Normal Exam, Normal Oropharynx, TM's Normal Bilaterally - Neck Exam Neck Exam: Normal Inspection - Respiratory Exam Respiratory Exam: Decreased Breath Sounds, Clear to Ausculation Bilateral, Rales - Cardiovascular Exam Cardiovascular Exam: Tachycardia, REGULAR RHYTHM, +S1, +S2 - GI/Abdominal Exam GI & Abdominal Exam: Distended, Normal Bowel Sounds - Rectal Exam Rectal Exam: NORMAL INSPECTION - Extremities Exam Extremities Exam: Normal Capillary Refill - Neurological Exam Neurological Exam: Abnormal Gait, Alert, Awake, CN II-XII Intact, Oriented x3 - Psychiatric Exam Psychiatric exam: Anxious, Depressed, Flat Affect - Skin Skin Exam: Dry Assessment and Plan (1) Malignant ascites Status: Acute (2) Pancreatic cancer Status: Chronic (3) Malnutrition Status: Chronic
[2017-03-09] MEDS: (Novolin R) Insulin Human Regular 100 units/ml vial SC SCH ×4 (07:38→22:39)
[2017-03-09] MEDS: Azithromycin 500 MG in Sodium Chloride 0.9% 250 ML IVPB SCH (17:53)
--- NOTE | 2017-03-09 22:30 | CP.PCM.PN ---
Subjective - Subjective Subjective: feels weak, no chest pain, no sob, and she has constipation, that is improving Objective - Vital Signs/Intake and Output Vital Signs (last 24 hours): Temp Pulse Resp BP Pulse Ox 98 F 93 H 18 107/68 99 03/09/17 16:00 03/09/17 16:00 03/09/17 16:00 03/09/17 16:00 03/09/17 16:00 Intake and Output: 03/09/17 03/10/17 18:59 06:59 Intake Total 360 530 Balance 360 530 - Medications Medications: Current Medications Docusate Sodium (Colace) 100 mg PO BID [facility] Last Admin: 03/09/17 17:53 Dose: 100 mg Azithromycin 500 mg/ Sodium (Chloride) 250 mls @ 167 mls/hr IVPB Q24H [facility] Last Admin: 03/09/17 17:53 Dose: 167 mls/hr Ceftriaxone Sodium 1 gm/ (Sodium Chloride) 100 mls @ 100 mls/hr IVPB Q24H [facility] Last Admin: 03/09/17 17:53 Dose: 100 mls/hr Insulin Human Regular (Novolin R) [address] [facility] PRN Reason: Protocol Last Admin: 03/09/17 17:54 Dose: Not Given Lisinopril (Zestril) 10 mg PO DAILY [facility] Last Admin: 02/27/17 09:39 Dose: Not Given Metoclopramide HCl (Reglan) 10 mg IVP ACH[facility] Last Admin: 03/09/17 17:54 Dose: 10 mg Morphine Sulfate (Morphine) 2 mg IVP Q6 PRN PRN Reason: Pain, moderate (4-7) Last Admin: 03/09/17 20:39 Dose: 2 mg Ondansetron HCl (Zofran Inj) 4 mg IVP Q6 PRN PRN Reason: Nausea/Vomiting Last Admin: 03/09/17 20:39 Dose: 4 mg Pantoprazole Sodium (Protonix Inj) 40 mg IVP DAILY [facility] Last Admin: 03/09/17 09:08 Dose: 40 mg Polyethylene Glycol (Miralax) 17 gm PO BID [facility] Last Admin: 03/01/17 17:25 Dose: 17 gm Sennosides (Senokot Tab) 8.6 mg PO BID [facility] Last Admin: 02/27/17 09:38 Dose: 8.6 mg - Labs Labs: 03/06/17 07:08 03/08/17 07:37 PT 11.5 SECONDS (9.7-12.2) 02/24/17 11:37 INR 1.0 02/24/17 11:37 APTT 35 SECONDS (21-34) H 02/24/17 11:37 - Constitutional Appears: Non-toxic, In Acute Distress, Cachectic, Chronically Ill - Head Exam Head Exam: ATRAUMATIC, NORMAL INSPECTION, NORMOCEPHALIC - Eye Exam Eye Exam: EOMI, Normal appearance, PERRL Pupil Exam: NORMAL ACCOMODATION - ENT Exam ENT Exam: Mucous Membranes Moist, Normal Exam, Normal Oropharynx, TM's Normal Bilaterally - Neck Exam Neck Exam: Normal Inspection - Respiratory Exam Respiratory Exam: Clear to Ausculation Bilateral, NORMAL BREATHING PATTERN - Cardiovascular Exam Cardiovascular Exam: REGULAR RHYTHM, +S1, +S2 - GI/Abdominal Exam GI & Abdominal Exam: Distended, Firm - Rectal Exam Rectal Exam: NORMAL INSPECTION - Extremities Exam Extremities Exam: Normal Capillary Refill - Neurological Exam Neurological Exam: Alert, Awake, CN II-XII Intact, Normal Gait, Oriented x3 Neuro motor strength exam: Left Upper Extremity: 5, Right Upper Extremity: 5, Left Lower Extremity: 5, Right Lower Extremity: 5 - Psychiatric Exam Psychiatric exam: Flat Affect - Skin Skin Exam: Intact Assessment and Plan (1) Malignant ascites Status: Acute (2) Pancreatic cancer Status: Chronic (3) Malnutrition Status: Chronic
--- NOTE | 2017-03-10 01:07 | CP.PCM.PN ---
Subjective - Date & Time of Evaluation Date of Evaluation: 03/07/17 Time of Evaluation: 19:00 - Subjective Subjective: Has mild nausea Objective - Vital Signs/Intake and Output Vital Signs (last 24 hours): Temp Pulse Resp BP Pulse Ox 98.2 F 95 H 16 97/61 L 98 03/10/17 00:00 03/10/17 00:00 03/10/17 00:00 03/10/17 00:00 03/10/17 00:00 Intake and Output: 03/09/17 03/10/17 18:59 06:59 Intake Total 360 530 Balance 360 530 - Medications Medications: Current Medications Docusate Sodium (Colace) 100 mg PO BID [facility] Last Admin: 03/09/17 17:53 Dose: 100 mg Azithromycin 500 mg/ Sodium (Chloride) 250 mls @ 167 mls/hr IVPB Q24H [facility] Last Admin: 03/09/17 17:53 Dose: 167 mls/hr Ceftriaxone Sodium 1 gm/ (Sodium Chloride) 100 mls @ 100 mls/hr IVPB Q24H [facility] Last Admin: 03/09/17 17:53 Dose: 100 mls/hr Insulin Human Regular (Novolin R) 0 unit SC [facility] PRN Reason: Protocol Last Admin: 03/09/17 22:39 Dose: Not Given Lisinopril (Zestril) 10 mg PO DAILY [facility] Last Admin: 02/27/17 09:39 Dose: Not Given Metoclopramide HCl (Reglan) 10 mg IVP ACHS [facility] Last Admin: 03/09/17 22:38 Dose: 10 mg Morphine Sulfate (Morphine) 2 mg IVP Q6 PRN PRN Reason: Pain, moderate (4-7) Last Admin: 03/09/17 20:39 Dose: 2 mg Ondansetron HCl (Zofran Inj) 4 mg IVP Q6 PRN PRN Reason: Nausea/Vomiting Last Admin: 03/09/17 20:39 Dose: 4 mg Pantoprazole Sodium (Protonix Inj) 40 mg IVP DAILY [facility] Last Admin: 03/09/17 09:08 Dose: 40 mg Polyethylene Glycol (Miralax) 17 gm PO BID [facility] Last Admin: 03/01/17 17:25 Dose: 17 gm Sennosides (Senokot Tab) 8.6 mg PO BID [facility] Last Admin: 02/27/17 09:38 Dose: 8.6 mg - Labs Labs: 03/06/17 07:08 03/08/17 07:37 PT 11.5 SECONDS (9.7-12.2) 02/24/17 11:37 INR 1.0 02/24/17 11:37 APTT 35 SECONDS (21-34) H 02/24/17 11:37 - Head Exam Head Exam: ATRAUMATIC - Eye Exam Eye Exam: Normal appearance - ENT Exam ENT Exam: Mucous Membranes Dry - Respiratory Exam Respiratory Exam: NORMAL BREATHING PATTERN - Cardiovascular Exam Cardiovascular Exam: +S1, +S2 - GI/Abdominal Exam GI & Abdominal Exam: Normal Bowel Sounds - Extremities Exam Extremities Exam: Pedal Edema Assessment and Plan (1) Pancreatic cancer Assessment & Plan: stage IV suportive care deferred hospice Status: Chronic
--- NOTE | 2017-03-10 01:08 | CP.PCM.PN ---
Subjective - Date & Time of Evaluation Date of Evaluation: 03/08/17 Time of Evaluation: 15:00 - Subjective Subjective: Has some abdominal discomfort Objective - Vital Signs/Intake and Output Vital Signs (last 24 hours): Temp Pulse Resp BP Pulse Ox 98.2 F 95 H 16 97/61 L 98 03/10/17 00:00 03/10/17 00:00 03/10/17 00:00 03/10/17 00:00 03/10/17 00:00 Intake and Output: 03/09/17 03/10/17 18:59 06:59 Intake Total 360 530 Balance 360 530 - Medications Medications: Current Medications Docusate Sodium (Colace) 100 mg PO BID [facility] Last Admin: 03/09/17 17:53 Dose: 100 mg Azithromycin 500 mg/ Sodium (Chloride) 250 mls @ 167 mls/hr IVPB Q24H [facility] Last Admin: 03/09/17 17:53 Dose: 167 mls/hr Ceftriaxone Sodium 1 gm/ (Sodium Chloride) 100 mls @ 100 mls/hr IVPB Q24H [facility] Last Admin: 03/09/17 17:53 Dose: 100 mls/hr Insulin Human Regular (Novolin R) 0 unit SC [facility] PRN Reason: Protocol Last Admin: 03/09/17 22:39 Dose: Not Given Lisinopril (Zestril) 10 mg PO DAILY [facility] Last Admin: 02/27/17 09:39 Dose: Not Given Metoclopramide HCl (Reglan) 10 mg IVP ACHS [facility] Last Admin: 03/09/17 22:38 Dose: 10 mg Morphine Sulfate (Morphine) 2 mg IVP Q6 PRN PRN Reason: Pain, moderate (4-7) Last Admin: 03/09/17 20:39 Dose: 2 mg Ondansetron HCl (Zofran Inj) 4 mg IVP Q6 PRN PRN Reason: Nausea/Vomiting Last Admin: 03/09/17 20:39 Dose: 4 mg Pantoprazole Sodium (Protonix Inj) 40 mg IVP DAILY [facility] Last Admin: 03/09/17 09:08 Dose: 40 mg Polyethylene Glycol (Miralax) 17 gm PO BID [facility] Last Admin: 03/01/17 17:25 Dose: 17 gm Sennosides (Senokot Tab) 8.6 mg PO BID [facility] Last Admin: 02/27/17 09:38 Dose: 8.6 mg - Labs Labs: 03/06/17 07:08 03/08/17 07:37 PT 11.5 SECONDS (9.7-12.2) 02/24/17 11:37 INR 1.0 02/24/17 11:37 APTT 35 SECONDS (21-34) H 02/24/17 11:37 - Head Exam Head Exam: ATRAUMATIC - Eye Exam Eye Exam: Normal appearance - ENT Exam ENT Exam: Mucous Membranes Dry - Respiratory Exam Respiratory Exam: NORMAL BREATHING PATTERN - Cardiovascular Exam Cardiovascular Exam: +S1, +S2 - GI/Abdominal Exam GI & Abdominal Exam: Normal Bowel Sounds - Extremities Exam Extremities Exam: Pedal Edema Assessment and Plan (1) Pancreatic cancer Assessment & Plan: stage IV past chemotherapy treatment deferred hospice supportive care Status: Chronic
--- NOTE | 2017-03-10 01:09 | CP.PCM.PN ---
Subjective - Date & Time of Evaluation Date of Evaluation: 03/09/17 Time of Evaluation: 20:00 - Subjective Subjective: Has nausea Objective - Vital Signs/Intake and Output Vital Signs (last 24 hours): Temp Pulse Resp BP Pulse Ox 98.2 F 95 H 16 97/61 L 98 03/10/17 00:00 03/10/17 00:00 03/10/17 00:00 03/10/17 00:00 03/10/17 00:00 Intake and Output: 03/09/17 03/10/17 18:59 06:59 Intake Total 360 530 Balance 360 530 - Medications Medications: Current Medications Docusate Sodium (Colace) 100 mg PO BID [facility] Last Admin: 03/09/17 17:53 Dose: 100 mg Azithromycin 500 mg/ Sodium (Chloride) 250 mls @ 167 mls/hr IVPB Q24H [facility] Last Admin: 03/09/17 17:53 Dose: 167 mls/hr Ceftriaxone Sodium 1 gm/ (Sodium Chloride) 100 mls @ 100 mls/hr IVPB Q24H [facility] Last Admin: 03/09/17 17:53 Dose: 100 mls/hr Insulin Human Regular (Novolin R) 0 unit SC [facility] PRN Reason: Protocol Last Admin: 03/09/17 22:39 Dose: Not Given Lisinopril (Zestril) 10 mg PO DAILY [facility] Last Admin: 02/27/17 09:39 Dose: Not Given Metoclopramide HCl (Reglan) 10 mg IVP ACHS [facility] Last Admin: 03/09/17 22:38 Dose: 10 mg Morphine Sulfate (Morphine) 2 mg IVP Q6 PRN PRN Reason: Pain, moderate (4-7) Last Admin: 03/09/17 20:39 Dose: 2 mg Ondansetron HCl (Zofran Inj) 4 mg IVP Q6 PRN PRN Reason: Nausea/Vomiting Last Admin: 03/09/17 20:39 Dose: 4 mg Pantoprazole Sodium (Protonix Inj) 40 mg IVP DAILY [facility] Last Admin: 03/09/17 09:08 Dose: 40 mg Polyethylene Glycol (Miralax) 17 gm PO BID [facility] Last Admin: 03/01/17 17:25 Dose: 17 gm Sennosides (Senokot Tab) 8.6 mg PO BID [facility] Last Admin: 02/27/17 09:38 Dose: 8.6 mg - Labs Labs: 03/06/17 07:08 03/08/17 07:37 PT 11.5 SECONDS (9.7-12.2) 02/24/17 11:37 INR 1.0 02/24/17 11:37 APTT 35 SECONDS (21-34) H 02/24/17 11:37 - Head Exam Head Exam: ATRAUMATIC - Eye Exam Eye Exam: Normal appearance - ENT Exam ENT Exam: Mucous Membranes Dry - Respiratory Exam Respiratory Exam: NORMAL BREATHING PATTERN - Cardiovascular Exam Cardiovascular Exam: +S1, +S2 - GI/Abdominal Exam GI & Abdominal Exam: Normal Bowel Sounds - Extremities Exam Extremities Exam: Pedal Edema Assessment and Plan (1) Pancreatic cancer Assessment & Plan: stage IV past chemotherapy treatment deferred hospice supportive care Status: Chronic
[2017-03-10] MEDS: (Novolin R) Insulin Human Regular 100 units/ml vial SC SCH ×4 (07:53→21:30)
--- NOTE | 2017-03-10 12:07 | CT ---
PROCEDURE: Date of procedure: 03/07/2017 Procedure: 1. Placement of a PleurX peritoneal drainage catheter 2. Peritoneal drainage through the catheter. Medications: The patient received IV sedation administered by anesthesiologist HISTORY: Pancreatic cancer, malignant ascites TECHNIQUE: Following informed consent procedure time-out, patient is placed prone on the CT table and non contrast CT was performed which showed a large ascites. The patient's abdomen was prepped and draped in the usual sterile fashion. After the skin was anesthetized with 10cc 2% lidocaine and sedated by anesthesiologist, a needle was advanced into the peritoneal space. The needle was exchanged for a guidewire. The PleurX peritoneal drainage catheter was tunneled under the skin. The PleurX catheter was then advanced through the peel-away sheath into the peritoneal space. The catheter secured to patient's skin and attached to a drainage bottle. Follow-up CT scan showed towards a peritoneal drainage catheter with tip of catheter within the pelvis. 2 liters of serosanguineous fluid removed. IMPRESSION: CT-guided placement of a PleurX peritoneal drainage catheter for malignant ascites.
[2017-03-10 13:17] LABS: EOS % 0.1 % (0.0-4.0); HEMATOCRIT 29.4 % (34.0-47.0); LYMPH # 0.6 K/uL (1.0-4.3); LYMPH % 2.3 % (20.0-40.0); MEAN CELL VOLUME 83.9 fL (81.0-99.0); MEAN CORPUSCULAR HEMOGLOBIN 26.6 pg (27.0-31.0); MEAN CORPUSCULAR HGB CONC 31.7 g/dL (33.0-37.0); MEAN PLATELET VOLUME 7.5 fL (7.2-11.7); MONO # 0.4 K/uL (0.0-0.8); MONO % 1.6 % (0.0-10.0); PLATELET COUNT 239 K/uL (130-400); RED CELL DISTRIBUTION WIDTH 18.2 % (11.5-14.5)
[2017-03-10 13:21] LABS: WHITE BLOOD COUNT 23.6 K/uL (4.8-10.8)
[2017-03-10 13:29] LABS: CHLORIDE 104 mmol/L (98-107); POTASSIUM 4.3 mmol/L (3.6-5.2); SODIUM 130 mmol/L (132-148)
[2017-03-10 13:31] LABS: GFR AFRICAN-AMERICAN > 60
[2017-03-10 13:32] LABS: BLOOD UREA NITROGEN 28 mg/dL (7-17); CARBON DIOXIDE 16 mmol/L (22-30); GLUCOSE,RANDOM 110 mg/dL (65-105)
[2017-03-10 13:36] LABS: METAMYELOCYTE 1 % (0-0); TOTAL CELLS COUNTED 100
[2017-03-10 13:37] LABS: NEUTROPHIL 6 % (50-75)
[2017-03-10] MEDS: Azithromycin 500 MG in Sodium Chloride 0.9% 250 ML IVPB SCH (17:19)
[2017-03-11] MEDS: (Novolin R) Insulin Human Regular 100 units/ml vial SC SCH ×4 (08:00→21:53)
[2017-03-11 11:37] LABS: BASO % 0.2 % (0.0-2.0); EOS # 0.1 K/uL (0.0-0.7); EOS % 0.4 % (0.0-4.0); HEMATOCRIT 31.6 % (34.0-47.0); LYMPH # 0.3 K/uL (1.0-4.3); LYMPH % 1.8 % (20.0-40.0); MEAN CELL VOLUME 83.7 fL (81.0-99.0); MEAN CORPUSCULAR HGB CONC 32.3 g/dL (33.0-37.0); MEAN PLATELET VOLUME 7.5 fL (7.2-11.7); MONO # 0.5 K/uL (0.0-0.8); MONO % 2.4 % (0.0-10.0); PLATELET COUNT 204 K/uL (130-400); RED CELL DISTRIBUTION WIDTH 18.5 % (11.5-14.5); WHITE BLOOD COUNT 19.1 K/uL (4.8-10.8)
[2017-03-11 11:49] LABS: BLOOD UREA NITROGEN 24 mg/dL (7-17); CALCIUM 8.5 mg/dl (8.6-10.4); CARBON DIOXIDE 17 mmol/L (22-30); CHLORIDE 101 mmol/L (98-107); GFR AFRICAN-AMERICAN > 60; GLUCOSE,RANDOM 109 mg/dL (65-105); POTASSIUM 4.5 mmol/L (3.6-5.2); SODIUM 132 mmol/L (132-148)
--- NOTE | 2017-03-11 12:05 | CP.PCM.PN ---
Subjective - Date & Time of Evaluation Date of Evaluation: 03/11/17 Objective - Vital Signs/Intake and Output Vital Signs (last 24 hours): Temp Pulse Resp BP Pulse Ox 97.9 F 105 H 20 117/76 99 03/11/17 01:00 03/11/17 01:00 03/11/17 01:00 03/11/17 01:00 03/11/17 01:00 Intake and Output: 03/11/17 03/11/17 06:59 18:59 Intake Total 600 Balance 600 - Medications Medications: Current Medications Docusate Sodium (Colace) 100 mg PO BID [facility] Last Admin: 03/11/17 10:12 Dose: 100 mg Azithromycin 500 mg/ Sodium (Chloride) 250 mls @ 167 mls/hr IVPB Q24H [facility] Last Admin: 03/10/17 17:19 Dose: 167 mls/hr Ceftriaxone Sodium 1 gm/ (Sodium Chloride) 100 mls @ 100 mls/hr IVPB Q24H [facility] Last Admin: 03/10/17 17:20 Dose: 100 mls/hr Insulin Human Regular (Novolin R) 0 unit SC [facility] PRN Reason: Protocol Last Admin: 03/11/17 08:00 Dose: Not Given Lisinopril (Zestril) 10 mg PO DAILY [facility] Last Admin: 02/27/17 09:39 Dose: Not Given Metoclopramide HCl (Reglan) 10 mg IVP ACHS [facility] Last Admin: 03/11/17 08:30 Dose: 10 mg Morphine Sulfate (Morphine) 2 mg IVP Q6 PRN PRN Reason: Pain, moderate (4-7) Last Admin: 03/09/17 20:39 Dose: 2 mg Ondansetron HCl (Zofran Inj) 4 mg IVP Q6 PRN PRN Reason: Nausea/Vomiting Last Admin: 03/10/17 20:50 Dose: 4 mg Pantoprazole Sodium (Protonix Inj) 40 mg IVP DAILY [facility] Last Admin: 03/11/17 10:12 Dose: 40 mg Polyethylene Glycol (Miralax) 17 gm PO BID [facility] Last Admin: 03/01/17 17:25 Dose: 17 gm Sennosides (Senokot Tab) 8.6 mg PO BID [facility] Last Admin: 02/27/17 09:38 Dose: 8.6 mg - Labs Labs: 03/11/17 11:29 03/11/17 11:29 PT 11.5 SECONDS (9.7-12.2) 02/24/17 11:37 INR 1.0 02/24/17 11:37 APTT 35 SECONDS (21-34) H 02/24/17 11:37 Assessment and Plan (1) Malignant ascites Status: Acute (2) Pancreatic cancer Status: Chronic (3) Malnutrition Status: Chronic
--- NOTE | 2017-03-11 12:05 | CP.PCM.PN ---
Subjective - Date & Time of Evaluation Date of Evaluation: 03/10/17 Time of Evaluation: 21:55 - Subjective Subjective: Pt seen & exmainined, c/o mild abdominal discomfort denies any nausea/vomitting , on supportive care Objective - Vital Signs/Intake and Output Vital Signs (last 24 hours): Temp Pulse Resp BP Pulse Ox 97.9 F 105 H 20 117/76 99 03/11/17 01:00 03/11/17 01:00 03/11/17 01:00 03/11/17 01:00 03/11/17 01:00 Intake and Output: 03/11/17 03/11/17 06:59 18:59 Intake Total 600 Balance 600 - Medications Medications: Current Medications Docusate Sodium (Colace) 100 mg PO BID [facility] Last Admin: 03/11/17 10:12 Dose: 100 mg Azithromycin 500 mg/ Sodium (Chloride) 250 mls @ 167 mls/hr IVPB Q24H [facility] Last Admin: 03/10/17 17:19 Dose: 167 mls/hr Ceftriaxone Sodium 1 gm/ (Sodium Chloride) 100 mls @ 100 mls/hr IVPB Q24H [facility] Last Admin: 03/10/17 17:20 Dose: 100 mls/hr Insulin Human Regular (Novolin R) 0 unit SC [facility] PRN Reason: Protocol Last Admin: 03/11/17 08:00 Dose: Not Given Lisinopril (Zestril) 10 mg PO DAILY [facility] Last Admin: 02/27/17 09:39 Dose: Not Given Metoclopramide HCl (Reglan) 10 mg IVP ACHS [facility] Last Admin: 03/11/17 08:30 Dose: 10 mg Morphine Sulfate (Morphine) 2 mg IVP Q6 PRN PRN Reason: Pain, moderate (4-7) Last Admin: 03/09/17 20:39 Dose: 2 mg Ondansetron HCl (Zofran Inj) 4 mg IVP Q6 PRN PRN Reason: Nausea/Vomiting Last Admin: 03/10/17 20:50 Dose: 4 mg Pantoprazole Sodium (Protonix Inj) 40 mg IVP DAILY [facility] Last Admin: 03/11/17 10:12 Dose: 40 mg Polyethylene Glycol (Miralax) 17 gm PO BID [facility] Last Admin: 03/01/17 17:25 Dose: 17 gm Sennosides (Senokot Tab) 8.6 mg PO BID [facility] Last Admin: 02/27/17 09:38 Dose: 8.6 mg - Labs Labs: 03/11/17 11:29 03/11/17 11:29 PT 11.5 SECONDS (9.7-12.2) 02/24/17 11:37 INR 1.0 02/24/17 11:37 APTT 35 SECONDS (21-34) H 02/24/17 11:37 - Constitutional Appears: Chronically Ill - Head Exam Head Exam: ATRAUMATIC, NORMAL INSPECTION, NORMOCEPHALIC - Eye Exam Eye Exam: EOMI, Normal appearance, PERRL Pupil Exam: NORMAL ACCOMODATION, PERRL - Respiratory Exam Respiratory Exam: Clear to Ausculation Bilateral, NORMAL BREATHING PATTERN - Cardiovascular Exam Cardiovascular Exam: REGULAR RHYTHM, +S1, +S2. absent: Murmur - Extremities Exam Extremities Exam: Pedal Edema - Neurological Exam Neurological Exam: Alert, Awake, CN II-XII Intact, Normal Gait, Oriented x3 Assessment and Plan (1) Malignant ascites Status: Acute (2) Pancreatic cancer Status: Chronic (3) Malnutrition Status: Chronic
[2017-03-11 12:34] LABS: EOSINOPHIL 1 % (0-4); NEUTROPHIL 95 % (50-75); TOTAL CELLS COUNTED 100
--- NOTE | 2017-03-11 12:57 | CP.PCM.PN ---
Subjective - Date & Time of Evaluation Date of Evaluation: 03/11/17 Time of Evaluation: 12:28 - Subjective Subjective: Complains of abdominal pain, nausea and swelling of lower extremities Objective - Vital Signs/Intake and Output Vital Signs (last 24 hours): Temp Pulse Resp BP Pulse Ox 97.9 F 105 H 20 117/76 99 03/11/17 01:00 03/11/17 01:00 03/11/17 01:00 03/11/17 01:00 03/11/17 01:00 Intake and Output: 03/11/17 03/11/17 06:59 18:59 Intake Total 600 Balance 600 - Medications Medications: Current Medications Docusate Sodium (Colace) 100 mg PO BID [facility] Last Admin: 03/11/17 10:12 Dose: 100 mg Azithromycin 500 mg/ Sodium (Chloride) 250 mls @ 167 mls/hr IVPB Q24H [facility] Last Admin: 03/10/17 17:19 Dose: 167 mls/hr Ceftriaxone Sodium 1 gm/ (Sodium Chloride) 100 mls @ 100 mls/hr IVPB Q24H [facility] Last Admin: 03/10/17 17:20 Dose: 100 mls/hr Insulin Human Regular (Novolin R) 0 unit SC [facility] PRN Reason: Protocol Last Admin: 03/11/17 12:12 Dose: Not Given Lisinopril (Zestril) 10 mg PO DAILY [facility] Last Admin: 02/27/17 09:39 Dose: Not Given Metoclopramide HCl (Reglan) 10 mg IVP ACHS [facility] Last Admin: 03/11/17 08:30 Dose: 10 mg Morphine Sulfate (Morphine) 2 mg IVP Q6 PRN PRN Reason: Pain, moderate (4-7) Last Admin: 03/09/17 20:39 Dose: 2 mg Ondansetron HCl (Zofran Inj) 4 mg IVP Q6 PRN PRN Reason: Nausea/Vomiting Last Admin: 03/10/17 20:50 Dose: 4 mg Pantoprazole Sodium (Protonix Inj) 40 mg IVP DAILY [facility] Last Admin: 03/11/17 10:12 Dose: 40 mg Polyethylene Glycol (Miralax) 17 gm PO BID [facility] Last Admin: 03/01/17 17:25 Dose: 17 gm Sennosides (Senokot Tab) 8.6 mg PO BID [facility] Last Admin: 02/27/17 09:38 Dose: 8.6 mg - Labs Labs: 03/11/17 11:29 03/11/17 11:29 PT 11.5 SECONDS (9.7-12.2) 02/24/17 11:37 INR 1.0 02/24/17 11:37 APTT 35 SECONDS (21-34) H 02/24/17 11:37 - Constitutional Appears: Chronically Ill - Head Exam Head Exam: ATRAUMATIC, NORMAL INSPECTION, NORMOCEPHALIC - Eye Exam Eye Exam: EOMI, Normal appearance, PERRL Pupil Exam: NORMAL ACCOMODATION, PERRL - ENT Exam ENT Exam: Mucous Membranes Moist, Normal Exam - Neck Exam Neck Exam: Normal Inspection - Respiratory Exam Respiratory Exam: Decreased Breath Sounds, NORMAL BREATHING PATTERN - Cardiovascular Exam Cardiovascular Exam: Tachycardia, REGULAR RHYTHM, +S1, +S2 - GI/Abdominal Exam GI & Abdominal Exam: Distended, Hypoactive Bowel Sounds - Rectal Exam Rectal Exam: Deferred - Extremities Exam Additional comments: large pedal edema - Back Exam Back Exam: NORMAL INSPECTION - Neurological Exam Neurological Exam: Oriented x3 Neuro motor strength exam: Left Upper Extremity: 2/1, Right Upper Extremity: 2/1 , Left Lower Extremity: 2/1, Right Lower Extremity: 2/1 - Psychiatric Exam Psychiatric exam: Flat Affect - Skin Skin Exam: Dry, Intact, Pallor, Warm Assessment and Plan - Assessment and Plan (Free Text) Assessment: Physical exam reveals very sick lady, with declining condition. Complains of nausea, constipation and abdominal pain. Poor tolerance to PO intake. There is significant edema to lower extremities. Patient is S/P insertion of PleurX catheter for draining of abdominal ascites. Patient is planned for home discharge. Son at bedside educated on technique how to use the kit for drainage at home. He stated understanding. Translation in Moz[place]ican provided by Pari HERNANDEZ. 500 cc of dark tea color ascites drained. I used the presence of son at bed side and with help from translation I akilah concerns regarding care and quality of life. In the past patient has repeatedly stated that she would not want any further aggressive treatments. I revisited that topic again today and she stated the some. Son agreed. I assisted patient with signing the POLST and she choose DNR/DNI. Further, son stated concerns about lock of support network at home. Home hospice discussed. Patient and son agreed. I called Mahin from [facility] to evaluate patient. Jackie [employer] made aware of. Cindi the case worker was in to assist the son and patient in process of how to obtain more hours of home help for patient. Impression * This is terminally ill patient * S/P PleuX for drainage of malignant ascites * Patient aware of her terminal condition * Patient prefers to be home with her family and there * Patient wishes no further aggressive treatment Suggestion * Would discharge home with Hospice care for symptoms management * Agree with DNR/DNI * Please provide clear instruction for son on how often to drain ascites
--- NOTE | 2017-03-11 13:02 | CARD ---
APPROVED REPORT EKG Measurement Heart [id number] <Conclusion> Sinus tachycardia Left axis deviation Nonspecific T wave abnormality Abnormal ECG
[2017-03-11] MEDS: Azithromycin 500 MG in Sodium Chloride 0.9% 250 ML IVPB SCH (16:30)
--- NOTE | 2017-03-11 17:34 | CARD ---
APPROVED REPORT EKG Measurement Heart [id number] <Conclusion> Sinus tachycardia Low voltage QRS Poor R wave progression. Abnormal ECG
[2017-03-12 07:33] LABS: BASO % 0.1 % (0.0-2.0); EOS # 0.1 K/uL (0.0-0.7); EOS % 0.6 % (0.0-4.0); HEMATOCRIT 30.3 % (34.0-47.0); LYMPH # 0.5 K/uL (1.0-4.3); LYMPH % 4.9 % (20.0-40.0); MEAN CELL VOLUME 83.3 fL (81.0-99.0); MEAN CORPUSCULAR HEMOGLOBIN 27.3 pg (27.0-31.0); MEAN CORPUSCULAR HGB CONC 32.7 g/dL (33.0-37.0); MEAN PLATELET VOLUME 7.4 fL (7.2-11.7); MONO # 0.5 K/uL (0.0-0.8); MONO % 4.9 % (0.0-10.0); PLATELET COUNT 184 K/uL (130-400); RED CELL DISTRIBUTION WIDTH 18.1 % (11.5-14.5)
[2017-03-12 07:45] LABS: CHLORIDE 105 mmol/L (98-107); POTASSIUM 4.5 mmol/L (3.6-5.2); SODIUM 132 mmol/L (132-148)
[2017-03-12 07:48] LABS: BLOOD UREA NITROGEN 23 mg/dL (7-17); CARBON DIOXIDE 18 mmol/L (22-30); GFR AFRICAN-AMERICAN > 60; GLUCOSE,RANDOM 93 mg/dL (65-105)
[2017-03-12] MEDS: (Novolin R) Insulin Human Regular 100 units/ml vial SC SCH ×4 (08:11→22:18)
[2017-03-12 08:49] LABS: EOSINOPHIL 1 % (0-4); MYELOCYTE 2 % (0-0); TOTAL CELLS COUNTED 100
[2017-03-12 08:50] LABS: NEUTROPHIL 90 % (50-75)
--- NOTE | 2017-03-12 10:24 | CP.PCM.PN ---
Subjective - Date & Time of Evaluation Date of Evaluation: 03/11/17 Time of Evaluation: 13:30 - Subjective Subjective: Has nausea and abdominal pain Objective - Vital Signs/Intake and Output Vital Signs (last 24 hours): Temp Pulse Resp BP Pulse Ox 98 F 99 H 19 115/81 100 03/12/17 08:34 03/12/17 08:34 03/12/17 08:34 03/12/17 08:34 03/12/17 08:34 Intake and Output: 03/12/17 03/12/17 06:59 18:59 Intake Total 100 Balance 100 - Medications Medications: Current Medications Docusate Sodium (Colace) 100 mg PO BID [facility] Last Admin: 03/12/17 09:50 Dose: 100 mg Azithromycin 500 mg/ Sodium (Chloride) 250 mls @ 167 mls/hr IVPB Q24H [facility] Last Admin: 03/11/17 16:30 Dose: 167 mls/hr Ceftriaxone Sodium 1 gm/ (Sodium Chloride) 100 mls @ 100 mls/hr IVPB Q24H [facility] Last Admin: 03/11/17 17:48 Dose: 100 mls/hr Insulin Human Regular (Novolin R) 0 unit SC [facility] PRN Reason: Protocol Last Admin: 03/12/17 08:11 Dose: Not Given Lisinopril (Zestril) 10 mg PO DAILY [facility] Last Admin: 02/27/17 09:39 Dose: Not Given Metoclopramide HCl (Reglan) 10 mg IVP ACHS [facility] Last Admin: 03/12/17 08:30 Dose: 10 mg Morphine Sulfate (Morphine) 2 mg IVP Q6 PRN PRN Reason: Pain, moderate (4-7) Last Admin: 03/12/17 08:38 Dose: 2 mg Ondansetron HCl (Zofran Inj) 4 mg IVP Q6 PRN PRN Reason: Nausea/Vomiting Last Admin: 03/11/17 17:49 Dose: 4 mg Pantoprazole Sodium (Protonix Inj) 40 mg IVP DAILY [facility] Last Admin: 03/12/17 09:50 Dose: 40 mg Polyethylene Glycol (Miralax) 17 gm PO BID [facility] Last Admin: 03/01/17 17:25 Dose: 17 gm Sennosides (Senokot Tab) 8.6 mg PO BID [facility] Last Admin: 02/27/17 09:38 Dose: 8.6 mg - Labs Labs: 03/12/17 07:19 03/12/17 07:19 PT 11.5 SECONDS (9.7-12.2) 02/24/17 11:37 INR 1.0 02/24/17 11:37 APTT 35 SECONDS (21-34) H 02/24/17 11:37 - Head Exam Head Exam: ATRAUMATIC - Eye Exam Eye Exam: Normal appearance - ENT Exam ENT Exam: Mucous Membranes Dry - Respiratory Exam Respiratory Exam: NORMAL BREATHING PATTERN - Cardiovascular Exam Cardiovascular Exam: +S1, +S2 - GI/Abdominal Exam GI & Abdominal Exam: Normal Bowel Sounds - Extremities Exam Extremities Exam: Pedal Edema Assessment and Plan (1) Pancreatic cancer Assessment & Plan: stage IV peritoneal metastasis supportive care deferred hospice DNR/DNI Status: Chronic
[2017-03-12] MEDS: Azithromycin 500 MG in Sodium Chloride 0.9% 250 ML IVPB SCH (16:18)
[2017-03-12 16:28] VITALS: RESP 20
--- NOTE | 2017-03-12 22:50 | CP.PCM.PN ---
Subjective - Date & Time of Evaluation Date of Evaluation: 03/12/17 Time of Evaluation: 20:00 - Subjective Subjective: pt c/o mild upper abdominal pain and bloating sensnation pt family refused hospivce care'willl be going home without hospice Objective - Vital Signs/Intake and Output Vital Signs (last 24 hours): Temp Pulse Resp BP Pulse Ox 98.1 F 101 H 20 106/71 97 03/12/17 16:27 03/12/17 18:41 03/12/17 16:27 03/12/17 18:41 03/12/17 16:27 Intake and Output: 03/12/17 03/13/17 18:59 06:59 Intake Total 300 Balance 300 - Medications Medications: Current Medications Docusate Sodium (Colace) 100 mg PO BID [facility] Last Admin: 03/12/17 18:38 Dose: 100 mg Azithromycin 500 mg/ Sodium (Chloride) 250 mls @ 167 mls/hr IVPB Q24H [facility] Last Admin: 03/12/17 16:18 Dose: 167 mls/hr Ceftriaxone Sodium 1 gm/ (Sodium Chloride) 100 mls @ 100 mls/hr IVPB Q24H [facility] Last Admin: 03/12/17 18:36 Dose: 100 mls/hr Insulin Human Regular (Novolin R) 0 unit SC [facility] PRN Reason: Protocol Last Admin: 03/12/17 22:18 Dose: Not Given Lisinopril (Zestril) 10 mg PO DAILY [facility] Last Admin: 02/27/17 09:39 Dose: Not Given Metoclopramide HCl (Reglan) 10 mg IVP ACHS [facility] Last Admin: 03/12/17 22:17 Dose: 10 mg Morphine Sulfate (Morphine) 2 mg IVP Q6 PRN PRN Reason: Pain, moderate (4-7) Last Admin: 03/12/17 18:43 Dose: 2 mg Ondansetron HCl (Zofran Inj) 4 mg IVP Q6 PRN PRN Reason: Nausea/Vomiting Last Admin: 03/12/17 18:58 Dose: 4 mg Pantoprazole Sodium (Protonix Inj) 40 mg IVP DAILY [facility] Last Admin: 03/12/17 09:50 Dose: 40 mg Polyethylene Glycol (Miralax) 17 gm PO BID [facility] Last Admin: 03/01/17 17:25 Dose: 17 gm Sennosides (Senokot Tab) 8.6 mg PO BID [facility] Last Admin: 02/27/17 09:38 Dose: 8.6 mg - Labs Labs: 03/12/17 07:19 03/12/17 07:19 PT 11.5 SECONDS (9.7-12.2) 02/24/17 11:37 INR 1.0 02/24/17 11:37 APTT 35 SECONDS (21-34) H 02/24/17 11:37 - Constitutional Appears: Chronically Ill - Head Exam Head Exam: ATRAUMATIC, NORMAL INSPECTION, NORMOCEPHALIC - Eye Exam Eye Exam: EOMI, Normal appearance, PERRL Pupil Exam: NORMAL ACCOMODATION, PERRL - ENT Exam ENT Exam: Mucous Membranes Moist, Normal Exam - Respiratory Exam Respiratory Exam: Rales, Rhonchi, NORMAL BREATHING PATTERN - Cardiovascular Exam Cardiovascular Exam: +S1, +S2 - GI/Abdominal Exam GI & Abdominal Exam: Soft, Normal Bowel Sounds. absent: Tenderness Assessment and Plan (1) Malignant ascites Status: Acute (2) Pancreatic cancer Status: Chronic (3) Malnutrition Status: Chronic
[2017-03-13] MEDS: (Novolin R) Insulin Human Regular 100 units/ml vial SC SCH ×4 (08:27→22:13)
--- NOTE | 2017-03-13 09:55 | CP.PCM.PN ---
Subjective - Date & Time of Evaluation Date of Evaluation: 03/13/17 Time of Evaluation: 08:00 Objective - Vital Signs/Intake and Output Vital Signs (last 24 hours): Temp Pulse Resp BP Pulse Ox 98.0 F 111 H 20 98/65 L 97 03/13/17 08:17 03/13/17 08:17 03/13/17 08:17 03/13/17 08:17 03/13/17 08:17 Intake and Output: 03/13/17 03/13/17 06:59 18:59 Intake Total 120 0 Balance 120 0 - Medications Medications: Current Medications Docusate Sodium (Colace) 100 mg PO BID [facility] Last Admin: 03/12/17 18:38 Dose: 100 mg Azithromycin 500 mg/ Sodium (Chloride) 250 mls @ 167 mls/hr IVPB Q24H [facility] Last Admin: 03/12/17 16:18 Dose: 167 mls/hr Ceftriaxone Sodium 1 gm/ (Sodium Chloride) 100 mls @ 100 mls/hr IVPB Q24H [facility] Last Admin: 03/12/17 18:36 Dose: 100 mls/hr Insulin Human Regular (Novolin R) 0 unit SC [facility] PRN Reason: Protocol Last Admin: 03/13/17 08:27 Dose: Not Given Lisinopril (Zestril) 10 mg PO DAILY [facility] Last Admin: 02/27/17 09:39 Dose: Not Given Metoclopramide HCl (Reglan) 10 mg IVP ACHS [facility] Last Admin: 03/13/17 07:54 Dose: 10 mg Morphine Sulfate (Morphine) 2 mg IVP Q6 PRN PRN Reason: Pain, moderate (4-7) Last Admin: 03/12/17 18:43 Dose: 2 mg Ondansetron HCl (Zofran Inj) 4 mg IVP Q6 PRN PRN Reason: Nausea/Vomiting Last Admin: 03/12/17 18:58 Dose: 4 mg Pantoprazole Sodium (Protonix Inj) 40 mg IVP DAILY [facility] Last Admin: 03/12/17 09:50 Dose: 40 mg Polyethylene Glycol (Miralax) 17 gm PO BID [facility] Last Admin: 03/01/17 17:25 Dose: 17 gm Sennosides (Senokot Tab) 8.6 mg PO BID [facility] Last Admin: 02/27/17 09:38 Dose: 8.6 mg - Labs Labs: 03/12/17 07:19 03/12/17 07:19 PT 11.5 SECONDS (9.7-12.2) 02/24/17 11:37 INR 1.0 02/24/17 11:37 APTT 35 SECONDS (21-34) H 02/24/17 11:37 Assessment and Plan (1) Malignant ascites Status: Acute (2) Pancreatic cancer Status: Chronic (3) Malnutrition Status: Chronic
[2017-03-13] MEDS: Azithromycin 500 MG in Sodium Chloride 0.9% 250 ML IVPB SCH (16:58)
--- NOTE | 2017-03-14 02:21 | CP.PCM.PN ---
Subjective - Date & Time of Evaluation Date of Evaluation: 03/12/17 Time of Evaluation: 13:00 - Subjective Subjective: Has nausea and abdominal pain Objective - Vital Signs/Intake and Output Vital Signs (last 24 hours): Temp Pulse Resp BP Pulse Ox 98.3 F 99 H 20 102/72 100 03/13/17 23:24 03/13/17 23:24 03/13/17 23:24 03/13/17 23:24 03/13/17 23:24 Intake and Output: 03/13/17 03/14/17 18:59 06:59 Intake Total 500 Balance 500 - Medications Medications: Current Medications Docusate Sodium (Colace) 100 mg PO BID [facility] Last Admin: 03/13/17 18:40 Dose: 100 mg Ceftriaxone Sodium 1 gm/ (Sodium Chloride) 100 mls @ 100 mls/hr IVPB Q24H [facility] Last Admin: 03/13/17 18:40 Dose: 100 mls/hr Insulin Human Regular (Novolin R) 0 unit SC [facility] PRN Reason: Protocol Last Admin: 03/13/17 22:13 Dose: Not Given Lisinopril (Zestril) 10 mg PO DAILY [facility] Last Admin: 02/27/17 09:39 Dose: Not Given Metoclopramide HCl (Reglan) 10 mg IVP ACHS [facility] Last Admin: 03/13/17 21:39 Dose: 10 mg Morphine Sulfate (Morphine) 2 mg IVP Q6 PRN PRN Reason: Pain, moderate (4-7) Last Admin: 03/12/17 18:43 Dose: 2 mg Ondansetron HCl (Zofran Inj) 4 mg IVP Q6 PRN PRN Reason: Nausea/Vomiting Last Admin: 03/12/17 18:58 Dose: 4 mg Pantoprazole Sodium (Protonix Inj) 40 mg IVP DAILY [facility] Last Admin: 03/13/17 10:04 Dose: 40 mg Polyethylene Glycol (Miralax) 17 gm PO BID [facility] Last Admin: 03/01/17 17:25 Dose: 17 gm Sennosides (Senokot Tab) 8.6 mg PO BID [facility] Last Admin: 02/27/17 09:38 Dose: 8.6 mg - Labs Labs: 03/12/17 07:19 03/12/17 07:19 PT 11.5 SECONDS (9.7-12.2) 02/24/17 11:37 INR 1.0 02/24/17 11:37 APTT 35 SECONDS (21-34) H 02/24/17 11:37 - Head Exam Head Exam: ATRAUMATIC - Eye Exam Eye Exam: Normal appearance - ENT Exam ENT Exam: Mucous Membranes Dry - Respiratory Exam Respiratory Exam: NORMAL BREATHING PATTERN - Cardiovascular Exam Cardiovascular Exam: +S1, +S2 - GI/Abdominal Exam GI & Abdominal Exam: Normal Bowel Sounds - Extremities Exam Extremities Exam: Pedal Edema Assessment and Plan (1) Pancreatic cancer Assessment & Plan: stage IV peritoneal metastasis s/p chemotherapy deferred hospice supportive care DNR/DNI Status: Chronic
--- NOTE | 2017-03-14 02:22 | CP.PCM.PN ---
Subjective - Date & Time of Evaluation Date of Evaluation: 03/13/17 Time of Evaluation: 15:00 - Subjective Subjective: Feels weak, nauseous Objective - Vital Signs/Intake and Output Vital Signs (last 24 hours): Temp Pulse Resp BP Pulse Ox 98.3 F 99 H 20 102/72 100 03/13/17 23:24 03/13/17 23:24 03/13/17 23:24 03/13/17 23:24 03/13/17 23:24 Intake and Output: 03/13/17 03/14/17 18:59 06:59 Intake Total 500 Balance 500 - Medications Medications: Current Medications Docusate Sodium (Colace) 100 mg PO BID [facility] Last Admin: 03/13/17 18:40 Dose: 100 mg Ceftriaxone Sodium 1 gm/ (Sodium Chloride) 100 mls @ 100 mls/hr IVPB Q24H [facility] Last Admin: 03/13/17 18:40 Dose: 100 mls/hr Insulin Human Regular (Novolin R) 0 unit SC [facility] PRN Reason: Protocol Last Admin: 03/13/17 22:13 Dose: Not Given Lisinopril (Zestril) 10 mg PO DAILY [facility] Last Admin: 02/27/17 09:39 Dose: Not Given Metoclopramide HCl (Reglan) 10 mg IVP ACHS [facility] Last Admin: 03/13/17 21:39 Dose: 10 mg Morphine Sulfate (Morphine) 2 mg IVP Q6 PRN PRN Reason: Pain, moderate (4-7) Last Admin: 03/12/17 18:43 Dose: 2 mg Ondansetron HCl (Zofran Inj) 4 mg IVP Q6 PRN PRN Reason: Nausea/Vomiting Last Admin: 03/12/17 18:58 Dose: 4 mg Pantoprazole Sodium (Protonix Inj) 40 mg IVP DAILY [facility] Last Admin: 03/13/17 10:04 Dose: 40 mg Polyethylene Glycol (Miralax) 17 gm PO BID [facility] Last Admin: 03/01/17 17:25 Dose: 17 gm Sennosides (Senokot Tab) 8.6 mg PO BID [facility] Last Admin: 02/27/17 09:38 Dose: 8.6 mg - Labs Labs: 03/12/17 07:19 03/12/17 07:19 PT 11.5 SECONDS (9.7-12.2) 08/28/17 11:37 INR 1.0 02/24/17 11:37 APTT 35 SECONDS (21-34) H 02/24/17 11:37 - Head Exam Head Exam: ATRAUMATIC - Eye Exam Eye Exam: Normal appearance - ENT Exam ENT Exam: Mucous Membranes Dry - Respiratory Exam Respiratory Exam: NORMAL BREATHING PATTERN - Cardiovascular Exam Cardiovascular Exam: +S1, +S2 - GI/Abdominal Exam GI & Abdominal Exam: Normal Bowel Sounds - Extremities Exam Extremities Exam: Pedal Edema Assessment and Plan (1) Pancreatic cancer Assessment & Plan: stage IV s/p chemotherapy deferred hospice supportive care DNR/DNI Status: Chronic
[2017-03-14] MEDS: (Novolin R) Insulin Human Regular 100 units/ml vial SC SCH ×3 (07:30→16:30)
--- NOTE | 2017-03-14 13:08 | CP.PCM.PN ---
Subjective - Date & Time of Evaluation Date of Evaluation: 03/14/17 Time of Evaluation: 13:00 - Subjective Subjective: Pt seen today , awake, alert, c/o abdominal pain and nauseous, poor po intake accepted to home hospice by [facility] Objective - Vital Signs/Intake and Output Vital Signs (last 24 hours): Temp Pulse Resp BP Pulse Ox 98.2 F 93 H 20 101/64 95 03/14/17 08:04 03/14/17 08:04 03/14/17 08:04 03/14/17 08:04 03/14/17 08:04 Intake and Output: 03/14/17 03/14/17 06:59 18:59 Intake Total 120 Balance 120 - Medications Medications: Current Medications Docusate Sodium (Colace) 100 mg PO BID [facility] Last Admin: 03/14/17 09:35 Dose: 100 mg Ceftriaxone Sodium 1 gm/ (Sodium Chloride) 100 mls @ 100 mls/hr IVPB Q24H [facility] Last Admin: 03/13/17 18:40 Dose: 100 mls/hr Insulin Human Regular (Novolin R) 0 unit SC [facility] PRN Reason: Protocol Last Admin: 03/14/17 12:19 Dose: Not Given Lisinopril (Zestril) 10 mg PO DAILY [facility] Last Admin: 02/27/17 09:39 Dose: Not Given Metoclopramide HCl (Reglan) 10 mg IVP ACHS [facility] Last Admin: 03/14/17 12:24 Dose: 10 mg Morphine Sulfate (Morphine) 2 mg IVP Q6 PRN PRN Reason: Pain, moderate (4-7) Last Admin: 03/12/17 18:43 Dose: 2 mg Ondansetron HCl (Zofran Inj) 4 mg IVP Q6 PRN PRN Reason: Nausea/Vomiting Last Admin: 03/12/17 18:58 Dose: 4 mg Pantoprazole Sodium (Protonix Inj) 40 mg IVP DAILY [facility] Last Admin: 03/14/17 09:34 Dose: 40 mg Polyethylene Glycol (Miralax) 17 gm PO BID [facility] Last Admin: 03/01/17 17:25 Dose: 17 gm Sennosides (Senokot Tab) 8.6 mg PO BID [facility] Last Admin: 02/27/17 09:38 Dose: 8.6 mg - Labs Labs: 03/12/17 07:19 09/13/17 07:19 PT 11.5 SECONDS (9.7-12.2) 02/24/17 11:37 INR 1.0 02/24/17 11:37 APTT 35 SECONDS (21-34) H 02/24/17 11:37 - Constitutional Appears: No Acute Distress, Older Than Stated Age, Cachectic, Chronically Ill - Respiratory Exam Respiratory Exam: Clear to Ausculation Bilateral, NORMAL BREATHING PATTERN - Cardiovascular Exam Cardiovascular Exam: REGULAR RHYTHM, +S1, +S2 - GI/Abdominal Exam GI & Abdominal Exam: Distended, Firm (pluerex cath in place ) - Neurological Exam Neurological Exam: Alert, Awake, Oriented x3 Assessment and Plan (1) Ascites Status: Acute (2) Pancreatic cancer Status: Chronic (3) Abdominal pain Status: Acute (4) Dehydration Status: Acute - Assessment and Plan (Free Text) Assessment: A/P 66 yr old female with stage 4 pancreatic cancer admitted for abdominal pain/ N/V pt DNR/DNI pt accepted to home hospice by [facility] D/W Dr. Jones, cleared for discharge home with home hospice
[2017-03-14 17:44] VITALS: BP 116/72; PULSE 96; TEMP 97.9; O2SAT 100
--- NOTE | 2017-03-14 18:58 | CP.PCM.DIS ---
Provider - Provider Date of Admission: 02/24/17 12:46 Attending physician: Andriy Jones MD Diagnosis - Discharge Diagnosis (1) Malignant ascites Status: Acute (2) Pancreatic cancer Status: Chronic Priority: High (3) Malnutrition Status: Chronic Hospital Course - Lab Results Lab Results: Micro Results 02/27/17 17:21 Blood Blood Culture - Final NO GROWTH AFTER 5 DAYS 02/27/17 17:21 Blood Gram Stain - Final TEST NOT PERFORMED 02/27/17 17:21 Blood Blood Culture - Final NO GROWTH AFTER 5 DAYS 02/27/17 17:21 Blood Gram Stain - Final TEST NOT PERFORMED 02/24/17 16:00 Blood Blood Culture - Final NO GROWTH AFTER 5 DAYS 02/24/17 16:00 Blood Gram Stain - Final 02/24/17 16:00 Blood Blood Culture - Final NO GROWTH AFTER 5 DAYS 02/24/17 16:00 Blood Gram Stain - Final 02/27/17 17:17 Urine,Clean Catch Urine Culture - Final <10,000 CFU/ML. MULTIPLE SPECIES. PROBABLE CONTAMINATION. Most Recent Lab Values WBC 10.0 K/uL (4.8-10.8) 03/12/17 07:19 RBC 3.64 Mil/uL (3.80-5.20) L 03/12/17 07:19 Hgb 9.9 g/dL (11.0-16.0) L 03/12/17 07:19 Hct 30.3 % (34.0-47.0) L 03/12/17 07:19 MCV 83.3 fL (81.0-99.0) 03/12/17 07:19 MCH 27.3 pg (27.0-31.0) 03/12/17 07:19 MCHC 32.7 g/dL (33.0-37.0) L 03/12/17 07:19 RDW 18.1 % (11.5-14.5) H 03/12/17 07:19 Plt Count 184 K/uL (130-400) 03/12/17 07:19 MPV 7.4 fL (7.2-11.7) 03/12/17 07:19 Neut % (Auto) 89.5 % (50.0-75.0) H 03/12/17 07:19 Lymph % (Auto) 4.9 % (20.0-40.0) L 03/12/17 07:19 [place] % (Auto) 4.9 % (0.0-10.0) 03/12/17 07:19 Eos % (Auto) 0.6 % (0.0-4.0) 03/12/17 07:19 Baso % (Auto) 0.1 % (0.0-2.0) 03/12/17 07:19 Neut # 8.9 K/uL (1.8-7.0) H 03/12/17 07:19 Lymph # 0.5 K/uL (1.0-4.3) L 03/12/17 07:19 [place] # 0.5 K/uL (0.0-0.8) 03/12/17 07:19 Eos # 0.1 K/uL (0.0-0.7) 03/12/17 07:19 Baso # 0.0 K/uL (0.0-0.2) 03/12/17 07:19 Neutrophils % (Manual) 90 % (50-75) H 03/12/17 07:19 Band Neutrophils % 4 % (0-2) H 03/04/17 12:01 Lymphocytes % (Manual) 2 % (20-40) L 03/12/17 07:19 Reactive Lymphs % 1 % (0-0) H 02/27/17 13:41 Monocytes % (Manual) 5 % (0-10) 03/12/17 07:19 Eosinophils % (Manual) 1 % (0-4) 03/12/17 07:19 Metamyelocytes % 1 % (0-0) H 03/10/17 13:08 Myelocytes % 2 % (0-0) H 03/12/17 07:19 Platelet Estimate Normal (NORMAL) 03/12/17 07:19 RBC Morphology Normal 02/24/17 11:37 Hypochromasia (manual) Slight 03/12/17 07:19 Poikilocytosis (manual Slight 03/12/17 07:19 Anisocytosis (manual) Slight 03/12/17 07:19 Tear Drop Cells Slight 03/11/17 11:29 Ovalocytes Slight 03/12/17 07:19 [place] Cells Slight 03/04/17 12:01 PT 11.5 SECONDS (9.7-12.2) 02/24/17 11:37 INR 1.0 02/24/17 11:37 APTT 35 SECONDS (21-34) H 02/24/17 11:37 Sodium 132 mmol/L (132-148) 03/12/17 07:19 Potassium 4.5 mmol/L (3.6-5.2) 03/12/17 07:19 Chloride 105 mmol/L (98-107) 03/12/17 07:19 Carbon Dioxide 18 mmol/L (22-30) L 03/12/17 07:19 Anion Gap 14 (10-20) 03/12/17 07:19 BUN 23 mg/dL (7-17) H 03/12/17 07:19 Creatinine 0.7 MG/DL (0.7-1.2) 03/12/17 07:19 Est GFR ( Amer) > 60 03/12/17 07:19 Est GFR (Non-Af Amer) > 60 03/12/17 07:19 POC Glucose (mg/dL) 113 mg/dL (65-110) H 03/14/17 16:50 Random Glucose 93 mg/dL (65-105) 03/12/17 07:19 Calcium 8.0 mg/dl (8.6-10.4) L 03/12/17 07:19 Total Bilirubin 0.5 mg/dL (0.2-1.3) 03/08/17 07:37 AST 17 U/L (14-36) 03/08/17 07:37 ALT 27 U/L (9-52) 03/08/17 07:37 Alkaline Phosphatase 73 U/L (38-126) 03/08/17 07:37 Troponin I < 0.0120 ng/mL (0.00-0.120) 02/24/17 11:37 NT-Pro-B Natriuret Pep 360 pg/mL (0-900) 02/24/17 11:37 Total Protein 4.5 g/dL (6.3-8.3) L 03/08/17 07:37 Albumin 2.1 g/dL (3.5-5.0) L D 03/08/17 07:37 Globulin 2.4 gm/dL (2.2-3.9) 03/08/17 07:37 Albumin/Globulin Ratio 0.9 (1.0-2.1) L 03/08/17 07:37 - Hospital Course Hospital Course: A/P 66 yr old female with stage 4 pancreatic cancer admitted for abdominal pain/ N/V pt DNR/DNI pt accepted to home hospice by [facility], cleared for discharge home with home hospice Discharge Exam - Head Exam Head Exam: ATRAUMATIC Discharge Plan - Discharge Medications Prescriptions: fentaNYL 25 mcg/hr [Duragesic Patch 25 mcg/hr] 1 ea TD Q72 #2 patch Ondansetron [Zofran Tab] 8 mg PO Q8 #15 - Follow Up Plan Condition: STABLE Disposition: HOME/ ROUTINE Instructions: Fentanyl (Absorbed through the skin), Ondansetron (By mouth), Dehydration (GEN), Pancreatic Cancer (GEN), Acute Abdominal Pain (GEN) Additional Instructions: Paciente estable para de compa. Porfavor llame para stacey con Dr Jones para dentro de adelita semana. Si sintomas regresan y empeoran por favor regresar a la darci de emergencia. Referrals: Ozzy Quigley MD [Staff Provider] - Andriy Jones MD [Staff Provider] -
== END 2017-03-14 18:59 | disposition home or self-care (01) | DRG 436 ==
LOC: C.ER 10:15 → C.9E 12:46 → C.5T 14:17 → C.3T 02-27 13:43
PROVIDERS: ADMIT Internal Medicine; ATTEND Internal Medicine
PROC: 0W9G3ZZ Drainage of Peritoneal Cavity, Percutaneous Approach (ICD-10-PCS; principal; 2017-02-25)
PROC: 0D9W3ZZ Drainage of Peritoneum, Percutaneous Approach (ICD-10-PCS; 2017-03-07)
DX: C25.9 Malignant neoplasm of pancreas, unspecified (principal); C78.6 Secondary malignant neoplasm of retroperitoneum and peritoneum; R18.0 Malignant ascites; K56.69 Other intestinal obstruction; E46 Unspecified protein-calorie malnutrition; E86.0 Dehydration; E11.9 Type 2 diabetes mellitus without complications; K64.4 Residual hemorrhoidal skin tags; Z85.07 Personal history of malignant neoplasm of pancreas; Z79.4 Long term (current) use of insulin; Z51.5 Encounter for palliative care; K56.41 Fecal impaction; Z66 Do not resuscitate